=== PATIENT | male | born 2000 | race Caucasian/White ===

== ENCOUNTER 2023-03-20 12:19 | Emergency (ER) | payer OTHER, SELFPAY ==
--- NOTE | ~2023-03-20 | CT_ITS ---
EXAMINATION: CT abdomen pelvis w con DATE: 03/20/2023 13:53 INDICATION: Upper right-sided abdominal pain for one day TECHNIQUE: Computed tomography (CT) of the abdomen and pelvis was performed with 100 CC Omnipaque 350 intravenous contrast. Automated exposure control and iterative reconstruction technique were employe d. Exam dose: 1204.64 mGy-cm total exam DLP. COMPARISON: None. FINDINGS: Normal heart size. No pericardial or pleural effusion. The lung bases are clear of infiltra te or consolidation. The gallbladder is contracted. No gallbladder wall thickening or pericholecystic fluid or fat strandi ng. No bile duct or pancreatic duct dilatation. No hepatic, splenic, pancreatic or adrenal space-occupying mass lesion. No solid right renal mass lesion or right ureteral renal calculus or hydroureteronephrosis. Possible small upper pole right renal cyst. No left renal solid mass lesion is evident. Possible small upper pole small renal cysts Approximately 3.4-5.9 mm and rounded approximately 2.8 mm nonobstructing mid left renal calculi. No l eft ureteral calculus or left hydronephrosis. Normal caliber of the abdominal aorta. No intraperitoneal or retroperitoneal or pelvic mass lesion or adenopathy or ascites. The urinary bladder and prostate gland are unremarkable. No bowel obstruction, bowel wall thickening, pneumatosis or intraperitoneal free air. Normal appendix . Small fat-containing umbilical hernia. Included skeletal structures are unremarkable. IMPRESSION: Normal appendix Mild nonobstructive left nephrolithiasis Reviewed, dictated and finalized at [facility]. Reviewed, dictated and finalized at [facility].
[2023-03-20 12:23] VITALS: BP 144/79; PULSE 78; RESP 20; TEMP 36.8; O2SAT 99
--- NOTE | 2023-03-20 12:36 | ED.GENADULT ---
HPI - General Adult General Chief complaint: Abdominal Pain Stated complaint: pain in upper abs, mostly right, worse w/ standing Time Seen by Provider: 03/20/23 12:25 Source: patient Mode of arrival: ambulatory History of Present Illness HPI narrative: 22-year-old male presenting with right upper quadrant abdominal pain. Patient states his symptoms started approximately 36 hours ago. He describes his symptoms as stabbing pain in his right upper quadrant that is near constant. He denies any injury or illness. Onset (ago): day(s) Location: abdomen Quality: stabbing Treatments prior to arrival: none Related Data Allergies Allergy/AdvReac Type Severity Reaction Status Date / Time No Known Allergies Allergy Verified 03/20/23 12:52 Exam Const: General: cooperative and healthy appearing HENMT: Head: normal to inspection and normocephalic Ears: hearing grossly normal bilaterally and external ears normal Face/Nose/Sinus: Normal external nose present and Normal nares present Face and sinus: normal facial exam and face symmetric Eyes: General: appearance normal, both eyes and all related structures Alignment and Position: alignment normal Neck: Neck: normal visual inspection and full ROM Chest: Chest palpation & inspection: normal inspection of the chest and normal palpation of entire chest wall Other: Nontender chest wall Resp: Effort & Inspection: normal respiratory effort and able to speak in complete sentences Cardio: Jugular venous distension: no JVD Rhythm: regular rhythm GI: Inspection: non-distended GI Palp: Yes Soft to palpation and Yes Tenderness to palpation present (GI) ( tenderness to palpation right upper quadrant. Positive Garcia's. ) Back/Spine/Pelvis: Back: no CVA tenderness Cervical Spine: cervical ROM normal Skin: General skin exam: normal color and no rashes or lesions noted Neuro: General: patient oriented x3 Cognition (Neuro): normal cognition Psych: Appearance: grossly normal Mental Status: mental status grossly normal Course Vital Signs Vital signs: Vital Signs Temperature 36.8 C 03/20/23 12:23 Pulse Rate 78 03/20/23 12:23 Respiratory Rate 20 03/20/23 12:23 Blood Pressure 144/79 H 03/20/23 12:23 Pulse Oximetry 99 03/20/23 12:23 Oxygen Delivery Room Air 03/20/23 12:23 Temperature 36.8 C 03/20/23 12:23 Pulse Rate 80 03/20/23 14:00 Respiratory Rate 20 03/20/23 14:00 Blood Pressure 140/75 03/20/23 14:00 Pulse Oximetry 97 03/20/23 14:00 Oxygen Delivery Room Air 03/20/23 14:00 Medical Decision Making MDM Narrative Medical decision making narrative: Differential diagnosis includes but not limited to cholecystitis versus choledocholithiasis versus gastritis versus pancreatitis versus PUD. Will evaluate with labs and imaging. Will administer IV Toradol for pain control Reassuring workup. Very mild elevated liver enzymes. Unknown etiology. Otherwise no emergent laboratory derangements. imaging upon my review an official read is without acute pathological findings. I suspect this is most likely a muscle strain versus muscle spasm versus possible gastritis. Patient did get significant symptom improvement following a single dose Toradol. will provide a few doses of Toradol for at home. Patient given very strict return precautions and follow-up instructions. He feels like to proceed outpatient management. Vital Signs Vital Signs: Vital Signs Temperature 36.8 C 03/20/23 12:23 Pulse Rate 78 03/20/23 12:23 Respiratory Rate 20 03/20/23 12:23 Blood Pressure 144/79 H 03/20/23 12:23 Pulse Oximetry 99 03/20/23 12:23 Oxygen Delivery Room Air 03/20/23 12:23 Temperature 36.8 C 03/20/23 12:23 Pulse Rate 80 03/20/23 14:00 Respiratory Rate 20 03/20/23 14:00 Blood Pressure 140/75 03/20/23 14:00 Pulse Oximetry 97 03/20/23 14:00 Oxygen Delivery Room Air 03/20/23 14:00 Lab Data Lab resul
[2023-03-20] MEDS: Please add drug allergy info to patient profile. 1 EACH XX (13:02)
[2023-03-20] MEDS: KETOROLAC 30 MG/ML VIAL (*BKC) IV PUSH (13:02)
[2023-03-20 13:15] LABS: Basophils Absolute Auto 0.07 K/mm3 (0.00-0.10); Eosinophils Absolute Auto 0.19 K/mm3 (0.02-0.50); Eosinophils Percent Auto 2.8 % (1.0-6.0); Hematocrit 44.9 % (40.0-54.0); Hemoglobin 15.1 g/dL (14.0-18.0); Immature Granulocyte Absolute 0.01 K/mm3 (0.00-0.00); Immature Granulocyte Percent A 0.1 % (0.0-0.0); Lymphocytes Absolute Auto 1.84 K/mm3 (1.10-4.50); Lymphocytes Percent Auto 27.5 % (18.0-42.0); Mean Corpuscular HGB Conc 33.6 g/dL (32.0-36.0); Mean Corpuscular Hemoglobin 30.1 pg (27.0-31.0); Mean Corpuscular Volume 89.6 fL (78.0-102.0); Monocytes Absolute Auto 0.54 K/mm3 (0.10-0.90); Monocytes Percent Auto 8.1 % (2.0-11.0); Neutrophils Percent Auto 60.5 % (50.0-70.0); Platelet Count Result 204 K/mm3 (150-420); Red Blood Count 5.01 M/mm3 (4.70-6.10); Red Cell Distribution Width 12.7 % (11.6-14.4); White Blood Count 6.7 K/mm3 (4.8-10.8)
[2023-03-20 13:30] LABS: Alanine Aminotransferase 71 U/L (16-63); Albumin Level 4.2 g/dL (3.4-5.0); Alkaline Phosphatase 95 U/L (46-116); Anion Gap 10 mmol/L (8-16); Aspartate Amino Transferase 52 U/L (15-37); Bilirubin,Total 0.4 mg/dL (0.00-1.00); Blood Urea Nitrogen 10 mg/dL (7-18); Calcium 9.1 mg/dL (8.5-10.1); Carbon Dioxide 29 mmol/L (21-32); Chloride 104 mmol/L (98-108); Estimated Glomerular Filt Rate > 60; Glucose 90 mg/dL (70-99); Lipase 54 U/L (16-77); Osmolality Calculated 295 mOsm/kg (285-295); Potassium 3.5 mmol/L (3.5-5.1); Sodium 143 mmol/L (136-145); Total Protein 7.4 g/dL (6.4-8.2)
[2023-03-20 14:00] VITALS: BP 140/75; PULSE 80; RESP 20; O2SAT 97
[2023-03-20 14:37] VITALS: BP 149/70; PULSE 72; RESP 20; TEMP 36.9; O2SAT 95
== END 2023-03-20 14:35 | disposition home or self-care (01) ==
PROVIDERS: Emergency Provider Emergency Medicine
DX: R10.11 Right upper quadrant pain (principal)
CPT/HCPCS: 36415; 74177; 80053; 83690; 85025; 96374; 99284; J1885; Q9967

== ENCOUNTER 2023-04-05 16:48 | Emergency (ER) | payer OTHER, SELFPAY ==
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
[2023-04-05 16:48] VITALS: BP 157/87; PULSE 96; RESP 15; TEMP 37.3; O2SAT 100
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
--- NOTE | 2023-04-05 17:26 | PC.NURSE ---
[facility] NOTIFIED. TO AWAIT RETURN CALL FROM .
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
[2023-04-05 18:15] VITALS: BP 138/96; PULSE 80; RESP 18; O2SAT 98
--- NOTE | 2023-04-05 18:26 | PC.NURSE ---
PT WAS SITTING UP TALKING ON CELL PHONE AND TENDING TO HIS DAUGHTER UPON DC. PT VERBALIZED UNDERSTANDING OF FOLLOW UP INSTRUCTIONS WITH PD AND ENT. DISC PROVIDED.
== END 2023-04-05 18:15 | disposition home or self-care (01) ==
PROVIDERS: Emergency Provider Emergency Medicine
DX: S02.40DA Maxillary fracture, left side, initial encounter for closed fracture (principal); S06.0X0A Concussion without loss of consciousness, initial encounter; Y08.09XA Assault by strike by other specified type of sport equipment, initial encounter
CPT/HCPCS: 70450; 70486; 99284

== ENCOUNTER 2023-04-29 14:56 | Emergency (ER) | payer OTHER, SELFPAY ==
[2023-04-29] VITALS (11 sets, daily range): BP systolic 133–143; BP diastolic 78–95; PULSE 72–89; RESP 12–21; TEMP 36.8–36.9; O2SAT 95–99
--- NOTE | 2023-04-29 14:58 | ECG_ITS ---
Measurements Intervals [place] Rate: 82 P: 72 ID: 147 QRS: 73 QRSD: 89 T: 47 QT: 358 QTc: 420 Interpretive Statements SINUS RHYTHM MINIMAL Q WAVES- INF/LAT LEADS BORDERLINE ECG NO PREVIOUS ECG AVAILABLE FOR COMPARISON Electronically Signed On 04-29-2023 15:36:22 CDT by Prasanth Zuleta D.O.
--- NOTE | 2023-04-29 15:00 | PC.NURSE ---
upon patient arrival, bed rails are padded for seizure precautions.
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
[2023-04-29] MEDS: levETIRAcetam 500 MG TABLET 1000 MG PO (15:18)
[2023-04-29 15:20] LABS: Basophils Absolute Auto 0.04 K/mm3 (0.00-0.10); Basophils Percent Auto 0.5 % (0.0-1.0); Eosinophils Percent Auto 2.6 % (1.0-6.0); Hemoglobin 16.5 g/dL (14.0-18.0); Immature Granulocyte Absolute 0.02 K/mm3 (0.00-0.00); Immature Granulocyte Percent A 0.3 % (0.0-0.0); Lymphocytes Absolute Auto 2.02 K/mm3 (1.10-4.50); Lymphocytes Percent Auto 26.3 % (18.0-42.0); Mean Corpuscular Hemoglobin 29.8 pg (27.0-31.0); Mean Corpuscular Volume 90.4 fL (78.0-102.0); Mean Platelet Volume 9.2 fl (8.7-11.0); Monocytes Absolute Auto 0.56 K/mm3 (0.10-0.90); Monocytes Percent Auto 7.3 % (2.0-11.0); Neutrophils Absolute Auto 4.8 K/mm3 (1.7-7.2); Platelet Count Result 214 K/mm3 (150-420); Red Blood Count 5.53 M/mm3 (4.70-6.10); Red Cell Distribution Width 13.1 % (11.6-14.4); White Blood Count 7.7 K/mm3 (4.8-10.8)
[2023-04-29 15:39] LABS: Alanine Aminotransferase 53 U/L (16-63); Albumin Level 4.3 g/dL (3.4-5.0); Alkaline Phosphatase 96 U/L (46-116); Anion Gap 8 mmol/L (8-16); Aspartate Amino Transferase 26 U/L (15-37); Bilirubin,Total 0.9 mg/dL (0.00-1.00); Blood Urea Nitrogen 10 mg/dL (7-18); Calcium 9.5 mg/dL (8.5-10.1); Carbon Dioxide 30 mmol/L (21-32); Chloride 103 mmol/L (98-108); Creatine Kinase 454 U/L (39-308); Estimated Glomerular Filt Rate > 60; Glucose 89 mg/dL (70-99); Osmolality Calculated 290 mOsm/kg (285-295); Potassium 3.8 mmol/L (3.5-5.1); Sodium 141 mmol/L (136-145); Total Protein 7.7 g/dL (6.4-8.2)
--- NOTE | 2023-04-29 16:00 | PC.NURSE ---
patient states he still cannot urinate at this time, erp is aware
--- NOTE | 2023-04-29 16:22 | PC.NURSE ---
patient unable to urinate at this time, erp is aware.
== END 2023-04-29 16:12 | disposition home or self-care (01) ==
PROVIDERS: Emergency Provider Emergency Medicine
DX: G40.409 Other generalized epilepsy and epileptic syndromes, not intractable, without status epilepticus (principal)
CPT/HCPCS: 36415; 80053; 82550; 85025; 93005; 99283; A9270

== ENCOUNTER 2023-06-02 05:15 | Emergency (ER) | payer OTHER, SELFPAY ==
--- NOTE | ~2023-06-02 | CT_ITS ---
Non-contrast Head CT History: Seizure, headache COMPARISON: 04/05/2023 Technique: Axial non-contrast imaging of the brain was performed. Dose reduction technique was used on this scan by utilizing automated exposure control and iterative reconstruction technique. The dose -length product (DLP) was 756.67 mGy-cm. Findings: There is no evidence of intracranial hemorrhage, mass lesion, or acute infarct. Brain par enchyma appears normal. The ventricles and subarachnoid spaces are normal in size. The calvarium ap pears normal. The visualized paranasal sinuses and mastoid air cells are clear. Impression: No significant abnormality seen. Reviewed, dictated and finalized at location . Impression: No significant abnormality seen.
--- NOTE | ~2023-06-02 | CT_ITS ---
Noncontrast CT scan of the cervical spine Technique: Multiple contiguous axial [address] images of the cervical spine were obtained and rec onstructed in 2D sagittal and coronal planes on the acquisition scanner. Dose reduction technique was used on this scan by utilizing automated exposure control, adjustment of the mA and/or kV according to patient size. The dose-length product (DLP) was 756.67 mGy-cm. Clinical History: Pain Findings: No fractures or dislocations. There is minimal reversal normal cervical lordosis. Osseous structures otherwise unremarkable. Intervertebral disc spaces are preserved. No prevertebral soft tis fawad swelling. Impression: Minimal reversal of the normal cervical lordosis, otherwise unremarkable exam. Reviewed, dictated and finalized at [facility]. Impression: Minimal reversal of the normal cervical lordosis, otherwise unremarkable exam.
[2023-06-02 05:19] VITALS: BP 150/83; PULSE 91; RESP 18; TEMP 36.8; O2SAT 97
--- NOTE | 2023-06-02 05:22 | ED.SEIZURE ---
HPI - Seizure General Chief Complaint: Seizure Stated Complaint: Seizure Time Seen by Provider: 06/02/23 05:22 Source: patient Mode of arrival: ambulatory Limitations: no limitations History of Present Illness HPI Narrative: 22-year-old male with a history of seizure disorder diagnosed 3 years ago, on Keppra 500 b.i.d. presents to the ER after -- an unwitnessed seizure. Patient was noted to be thrashing around in his father went up to check on him. He noted him to be lying on the floor. The patient did not have any fecal or urinary incontinence. The patient was noted to be incoherent and confused. He had a prior seizure few days ago. The patient is noncompliant with his Keppra. -- Complains of generalized headache without any focal neuro deficit -- multiple abrasions on his toes, right knee. He has a large tongue bite on the right lateral tongue. His shoulders are sore and he has soft tissue swelling in the right side of the neck. 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's license (CDL) as part of your employment, either self-employed or otherwise?: No Related Data Allergies Allergy/AdvReac Type Severity Reaction Status Date / Time No Known Allergies Allergy Verified 06/02/23 06:07 Review of Systems Review of Systems: All systems reviewed & are unremarkable except as noted in HPI and below Constitutional: Constitutional: Reports as per HPI, Reports no additional constitutional complaints and Reports weakness Eyes: Eyes: Reports as per HPI and Reports no additional eye complaints ENT: Reports system reviewed and no additional complaints, except as documented and Reports as per HPI Comments: large tongue bite on the right lateral margin of the tongue. Soft tissue swelling below the right angle of the mandible Cardiovascular: Cardiovascular: Reports as per HPI and Reports no additional cardiovascular complaints Respiratory: Respiratory: Reports as per HPI and Reports no additional respiratory complaints Gastrointestinal: Gastrointestinal: Reports as per HPI and Reports no additional gastrointestinal complaints Genitourinary: Genitourinary: Reports no additional male genitourinary complaints Musculoskeletal: Musculoskeletal: Reports no additional musculoskeletal complaints and Reports as per HPI Comments: Bilateral shoulder pain. Bilateral knee pain abrasion of his toes and knees Integumentary/Breasts: Skin/Breast: Reports system reviewed and no additional complaints, except as docu and Reports as per HPI Neurologic: Reports system reviewed and no additional complaints, except as documented and Reports as per HPI Psychiatric: Psychiatric: Reports no additional psychiatric complaints and Reports as per HPI Endocrine: Endocrine: Reports no additional endocrine complaints and Reports as per HPI Hematologic/Lymphatic: Hematologic/Lymphatic: Reports no additional hematologic/lymphatic complaints and Reports as per HPI Allergic/Immunologic: Allergic/Immunologic: Reports no additional allergic/immunologic complaints and Reports as per HPI PMFSH Past Medical History Medical History No active medical problems Seizure Surgical History Surgical History No pertinent past surgical history Exam Const: General: no acute distress Orientation/consciousness: patient oriented x3 Limitations: no limitations HENMT: Head: normal to inspection Ears: external ears normal Face/Nose/Sinus: Normal external nose present Face and sinus: normal facial exam Mouth: Yes Abnormal oral
--- NOTE | 2023-06-02 05:30 | PC.NURSE ---
Patient father to nurses station, states he suspects patient may be using drugs other than marijuana. Patient father asking RN if we will perform a drug screen. Patient father updated that order is up to the discretion of the ER doctor and even if the provider orders the test, the father may not necessarily be able to know the results of the testing as the patient is over 18. HIPPA explained to patient father by RN.
[2023-06-02 05:44] LABS: Basophils Absolute Auto 0.04 K/mm3 (0.00-0.10); Basophils Percent Auto 0.5 % (0.0-1.0); Eosinophils Absolute Auto 0.16 K/mm3 (0.02-0.50); Eosinophils Percent Auto 1.9 % (1.0-6.0); Hematocrit 47.3 % (40.0-54.0); Hemoglobin 15.6 g/dL (14.0-18.0); Immature Granulocyte Absolute 0.03 K/mm3 (0.00-0.00); Immature Granulocyte Percent A 0.4 % (0.0-0.0); Lymphocytes Absolute Auto 1.69 K/mm3 (1.10-4.50); Lymphocytes Percent Auto 20.6 % (18.0-42.0); Mean Corpuscular Hemoglobin 30.1 pg (27.0-31.0); Mean Corpuscular Volume 91.1 fL (78.0-102.0); Mean Platelet Volume 9.2 fl (8.7-11.0); Monocytes Absolute Auto 0.59 K/mm3 (0.10-0.90); Monocytes Percent Auto 7.2 % (2.0-11.0); Neutrophils Absolute Auto 5.7 K/mm3 (1.7-7.2); Neutrophils Percent Auto 69.4 % (50.0-70.0); Platelet Count Result 216 K/mm3 (150-420); Red Blood Count 5.19 M/mm3 (4.70-6.10); Red Cell Distribution Width 12.3 % (11.6-14.4); White Blood Count 8.2 K/mm3 (4.8-10.8)
[2023-06-02] MEDS: TETANUS,DIPHTHERIA,AC PERTUSSIS ADULT 0.5 ML (ADACEL) IM (05:57)
[2023-06-02] MEDS: levETIRAcetam 1000MG/NACL100ML 1,000 MG/100 ML BAG 400 MG IVPB (05:59)
[2023-06-02] MEDS: KETOROLAC 30 MG/ML VIAL (*BKC) IM (05:59)
[2023-06-02 06:12] LABS: Alanine Aminotransferase 96 U/L (16-63); Albumin Level 3.8 g/dL (3.4-5.0); Alkaline Phosphatase 105 U/L (46-116); Anion Gap 10 mmol/L (8-16); Aspartate Amino Transferase 37 U/L (15-37); Bilirubin,Total 0.4 mg/dL (0.00-1.00); Blood Urea Nitrogen 7 mg/dL (7-18); Calcium 9.3 mg/dL (8.5-10.1); Carbon Dioxide 26 mmol/L (21-32); Chloride 102 mmol/L (98-108); Estimated CRCL calculation 148 ml/min; Estimated Glomerular Filt Rate > 60; Glucose 113 mg/dL (70-99); Lipase 68 U/L (16-77); Magnesium 2.2 mg/dL (1.8-2.4); Osmolality Calculated 285 mOsm/kg (285-295); Potassium 3.5 mmol/L (3.5-5.1); Sodium 138 mmol/L (136-145); Total Protein 7.2 g/dL (6.4-8.2)
--- NOTE | 2023-06-02 06:39 | PC.NURSE ---
after viewing patient pill bottle of Keppra, dispensed on 04/29/23, if patient was taking medication as prescribed, patient would have completed all the medication which was filled on 04/29. multiple pills remain in bottle, therefore we can assume patient is not taking his Keppra medication correctly.
[2023-06-02 06:46] VITALS: BP 126/74; PULSE 80; RESP 16; TEMP 36.5; O2SAT 98
== END 2023-06-02 07:09 | disposition home or self-care (01) ==
PROVIDERS: Emergency Provider Internal Medicine Critical Care Medicine; PCP Internal Medicine
DX: G40.909 Epilepsy, unspecified, not intractable, without status epilepticus (principal); Z79.899 Other long term (current) drug therapy; Z23 Encounter for immunization; S80.212A Abrasion, left knee, initial encounter; S80.211A Abrasion, right knee, initial encounter; S90.812A Abrasion, left foot, initial encounter; S90.811A Abrasion, right foot, initial encounter; X58.XXXA Exposure to other specified factors, initial encounter
CPT/HCPCS: 36415; 70450; 72125; 80053; 83605; 83690; 83735; 85025; 90471; 90715; 96365; 96372; 99284; J1885; J1953

== ENCOUNTER 2023-07-16 21:58 | Emergency (ER) | payer OTHER, SELFPAY ==
--- NOTE | ~2023-07-16 | CT_ITS ---
EXAMINATION: CT brain wo con INDICATION: Seizure, headache COMPARISON: 06/02/2023 TECHNIQUE: Standard unenhanced head CT. The dose-length product (DLP) was 605.33 mGy-cm. The mA was a djusted according to patient size. Iterative reconstruction technique was employed. FINDINGS: No intracranial hemorrhage, acute infarction, or abnormal mass lesion. The ventricles are n ormal. No abnormal mass effect or midline shift. The [place]-white matter differentiation is normal. The basal cisterns are patent. The orbits are normal. The paranasal sinuses, mastoids and calvarium are normal. IMPRESSION: 1. No acute intracranial abnormality. Reviewed, dictated and finalized at location F. OL BOAT DRIVER
--- NOTE | ~2023-07-16 | CT_ITS ---
EXAMINATION: CT cervical spine wo con DATE: 07/16/2023 22:41 INDICATION: Neck pain TECHNIQUE: Computed tomography (CT) of the cervical spine was performed without intravenous contrast. The dose-length product (DLP) was 477.06 mGy-cm. Automated exposure control and iterative reconstruc tion technique were employed. COMPARISON: 06/02/2023 FINDINGS: No fracture, dislocation, or subluxation. The vertebral body heights, alignment, and interv ertebral disc spaces are normal. The paravertebral soft tissues are unremarkable. The odontoid proces s is intact. IMPRESSION: 1. No acute osseous abnormality. Reviewed, dictated and finalized at location F. OPERATOR
[2023-07-16 22:03] VITALS: BP 157/93; PULSE 94; RESP 18; TEMP 36.7; O2SAT 96
--- NOTE | 2023-07-16 22:18 | ED.SEIZURE ---
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 His sister was the witness of the episode, which was described as his body tensing up. No incontinence or tongue biting. There was a post-tictal period immediately afterwards during which he was not aware of where he was. Patient now complains of headache, neck pain, and a goose egg bump in the back of his head, and not very energetic . Denied recent illness but admitted that he's had a lot of stress lately. Said he is compliant with his Keppra at home. 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's license (CDL) as part of your employment, either self-employed or otherwise?: No Related Data Allergies Allergy/AdvReac Type Severity Reaction Status Date / Time No Known Allergies Allergy Verified 07/16/23 22:01 Review of Systems Constitutional: Constitutional: Reports as per HPI and Reports no additional constitutional complaints Eyes: Eyes: Reports as per HPI and Reports no additional eye complaints ENT: Reports system reviewed and no additional complaints, except as documented and Reports as per HPI Cardiovascular: Cardiovascular: Reports as per HPI and Reports no additional cardiovascular complaints Respiratory: Respiratory: Reports as per HPI and Reports no additional respiratory complaints Gastrointestinal: Gastrointestinal: Reports as per HPI and Reports no additional gastrointestinal complaints Genitourinary: Genitourinary: Reports as per HPI Musculoskeletal: Musculoskeletal: Reports no additional musculoskeletal complaints and Reports as per HPI Integumentary/Breasts: Skin/Breast: Reports system reviewed and no additional complaints, except as docu and Reports as per HPI Neurologic: Reports system reviewed and no additional complaints, except as documented and Reports as per HPI Psychiatric: Psychiatric: Reports no additional psychiatric complaints and Reports as per HPI Endocrine: Endocrine: Reports no additional endocrine complaints and Reports as per HPI Hematologic/Lymphatic: Hematologic/Lymphatic: Reports no additional hematologic/lymphatic complaints and Reports as per HPI Allergic/Immunologic: Allergic/Immunologic: Reports no additional allergic/immunologic complaints and Reports as per HPI PMFSH Past Medical History Medical History No active medical problems Seizure Surgical History Surgical History No pertinent past surgical history Exam Const: General: cooperative, healthy appearing, comfortable, no acute distress, well developed, alert, awake, average body habitus and well nourished Nutritional Appearance: average body habitus and well nourished Orientation/consciousness: oriented to person, oriented to place and oriented to time Limitations: no limitations HENMT: Head: normal to inspection Ears: hearing grossly normal bilaterally, external ears normal and TM's normal bilaterally Face/Nose/Sinus: Normal external nose present, Normal nares present, No nasal polyps present, Normal nasal mucous membranes and turbinates present, Normal septum present, No nasal discharge present, normal facial exam, sinuses nontender and face symmetric Face and sinus: normal facial exam, sinuses nontender and face symmetric Mouth: Yes Normal oral and palatal muco
[2023-07-16 22:29] LABS: Hematocrit 45.9 % (40.0-54.0); Hemoglobin 15.3 g/dL (14.0-18.0); Mean Corpuscular HGB Conc 33.3 g/dL (32.0-36.0); Mean Corpuscular Hemoglobin 29.8 pg (27.0-31.0); Mean Corpuscular Volume 89.5 fL (78.0-102.0); Mean Platelet Volume 9.1 fl (8.7-11.0); Platelet Count Result 200 K/mm3 (150-420); Red Blood Count 5.13 M/mm3 (4.70-6.10); Red Cell Distribution Width 12.5 % (11.6-14.4); White Blood Count 8.8 K/mm3 (4.8-10.8)
[2023-07-16 22:43] LABS: Alanine Aminotransferase 72 U/L (16-63); Albumin Level 3.9 g/dL (3.4-5.0); Alkaline Phosphatase 101 U/L (46-116); Anion Gap 8 mmol/L (8-16); Aspartate Amino Transferase 32 U/L (15-37); Bilirubin,Total 0.4 mg/dL (0.00-1.00); Blood Urea Nitrogen 8 mg/dL (7-18); Calcium 8.8 mg/dL (8.5-10.1); Carbon Dioxide 31 mmol/L (21-32); Chloride 102 mmol/L (98-108); Estimated CRCL calculation 131 ml/min; Estimated Glomerular Filt Rate > 60; Glucose 92 mg/dL (70-99); Osmolality Calculated 290 mOsm/kg (285-295); Potassium 3.6 mmol/L (3.5-5.1); Sodium 141 mmol/L (136-145)
[2023-07-16 23:10] VITALS: BP 125/105; PULSE 85; RESP 18; O2SAT 96
[2023-07-17 00:03] VITALS: BP 142/73; PULSE 76; RESP 18; O2SAT 98
[2023-07-19 15:51] LABS: Levetiracetam Keppra 6.8 mcg/mL (6.0-46.0)
== END 2023-07-17 00:20 | disposition home or self-care (01) ==
PROVIDERS: Emergency Provider Emergency Medicine; PCP Internal Medicine
DX: R56.9 Unspecified convulsions (principal); Z79.899 Other long term (current) drug therapy
CPT/HCPCS: 36415; 70450; 72125; 80053; 80177; 85027; 99284

== ENCOUNTER 2023-07-28 05:13 | Emergency (ER) | payer OTHER, SELFPAY ==
--- NOTE | ~2023-07-28 | CT_ITS ---
Non-contrast Head CT History: Seizure, headache COMPARISON: 07/16/2023 Technique: Axial non-contrast imaging of the brain was performed. Dose reduction technique was used on this scan by utilizing automated exposure control and iterative reconstruction technique. The dose -length product (DLP) was 681.00 mGy-cm. Findings: There is no evidence of intracranial hemorrhage, mass lesion, or acute infarct. Brain par enchyma appears normal. The ventricles and subarachnoid spaces are normal in size. The calvarium ap pears normal. The visualized paranasal sinuses and mastoid air cells are clear. Impression: No significant abnormality seen. Reviewed, dictated and finalized at location . CLIMBER Impression: No significant abnormality seen.
[2023-07-28 05:15] VITALS: BP 131/76; PULSE 86; RESP 18; TEMP 36.9; O2SAT 95
--- NOTE | 2023-07-28 05:18 | ED.SEIZURE ---
HPI - Seizure General Chief Complaint: Seizure Stated Complaint: seizure while sleeping, bit tongue Source: patient Mode of arrival: ambulatory Limitations: no limitations History of Present Illness HPI Narrative: 22-year-old male with a history of seizure disorder 1st diagnosed 3 years ago presents to the ER after -- unwitnessed seizure in his sleep. The patient was dropped off at the ER by his friend. After the seizure the patient called his friend who brought him to the ER. -- Complains of pain in the right lateral tongue without any obvious bruising/laceration. -- Postictal headache. No focal neuro deficits noted. -- Bilateral shoulder pain. No urinary incontinence. The patient has been having recurrent seizures and is here every month. He was initially on Keppra 500 b.i.d. and the dose has been increased to 750 b.i.d. The patient is compliant with his medications. 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 (CDL) as part of your employment, either self-employed or otherwise?: No Related Data Allergies Allergy/AdvReac Type Severity Reaction Status Date / Time No Known Allergies Allergy Verified 07/28/23 05:55 Review of Systems Review of Systems: All systems reviewed & are unremarkable except as noted in HPI and below Constitutional: Constitutional: Reports as per HPI and Reports no additional constitutional complaints Eyes: Eyes: Reports as per HPI and Reports no additional eye complaints ENT: Reports system reviewed and no additional complaints, except as documented and Reports as per HPI Comments: complains of soreness of the right lateral tongue. Cardiovascular: Cardiovascular: Reports as per HPI and Reports no additional cardiovascular complaints Respiratory: Respiratory: Reports as per HPI and Reports no additional respiratory complaints Gastrointestinal: Gastrointestinal: Reports as per HPI and Reports no additional gastrointestinal complaints Genitourinary: Genitourinary: Reports no additional male genitourinary complaints and Reports as per HPI Musculoskeletal: Musculoskeletal: Reports no additional musculoskeletal complaints, Reports as per HPI and Reports arthralgias Integumentary/Breasts: Skin/Breast: Reports system reviewed and no additional complaints, except as docu and Reports as per HPI Neurologic: Reports system reviewed and no additional complaints, except as documented and Reports as per HPI Psychiatric: Psychiatric: Reports no additional psychiatric complaints and Reports as per HPI Endocrine: Endocrine: Reports no additional endocrine complaints and Reports as per HPI Hematologic/Lymphatic: Hematologic/Lymphatic: Reports no additional hematologic/lymphatic complaints and Reports as per HPI Allergic/Immunologic: Allergic/Immunologic: Reports no additional allergic/immunologic complaints and Reports as per HPI [facility] Past Medical History Medical History No active medical problems Seizure Surgical History Surgical History No pertinent past surgical history Exam Const: General: no acute distress and ill appearing Nutritional Appearance: obese Orientation/consciousness: confusion HENMT: Head: normal to inspection Ears: external ears normal Face/Nose/Sinus: Normal external nose present Face and sinus: normal facial exam Mouth: Yes Normal oral and palatal mucosa present Throat: posterior oropharynx normal Eyes: Conjunctivae: conjunctivae normal Pupils: Equal, round and reactive pupils present EOM: EOMs intact bilaterally Direct Ophthalmoscopy: no photophobia Neck: Neck
[2023-07-28 05:54] LABS: Basophils Absolute Auto 0.08 K/mm3 (0.00-0.10); Eosinophils Absolute Auto 0.19 K/mm3 (0.02-0.50); Eosinophils Percent Auto 2.5 % (1.0-6.0); Hematocrit 45.8 % (40.0-54.0); Immature Granulocyte Absolute 0.04 K/mm3 (0.00-0.00); Immature Granulocyte Percent A 0.5 % (0.0-0.0); Lymphocytes Absolute Auto 1.87 K/mm3 (1.10-4.50); Lymphocytes Percent Auto 24.2 % (18.0-42.0); Mean Corpuscular HGB Conc 32.8 g/dL (32.0-36.0); Mean Corpuscular Hemoglobin 29.4 pg (27.0-31.0); Mean Corpuscular Volume 89.8 fL (78.0-102.0); Monocytes Absolute Auto 0.59 K/mm3 (0.10-0.90); Monocytes Percent Auto 7.6 % (2.0-11.0); Neutrophils Percent Auto 64.2 % (50.0-70.0); Platelet Count Result 198 K/mm3 (150-420); Red Cell Distribution Width 12.7 % (11.6-14.4); White Blood Count 7.7 K/mm3 (4.8-10.8)
[2023-07-28] MEDS: levETIRAcetam 1000MG/NACL100ML 1,000 MG/100 ML BAG 400 MG IVPB (06:07)
[2023-07-28 06:11] LABS: Alanine Aminotransferase 58 U/L (16-63); Albumin Level 3.6 g/dL (3.4-5.0); Alkaline Phosphatase 90 U/L (46-116); Anion Gap 3 mmol/L (8-16); Aspartate Amino Transferase 26 U/L (15-37); Bilirubin,Total 0.4 mg/dL (0.00-1.00); Blood Urea Nitrogen 9 mg/dL (7-18); Calcium 8.8 mg/dL (8.5-10.1); Carbon Dioxide 31 mmol/L (21-32); Chloride 103 mmol/L (98-108); Creatine Kinase 250 U/L (39-308); Estimated CRCL calculation 127 ml/min; Estimated Glomerular Filt Rate > 60; Glucose 116 mg/dL (70-99); Osmolality Calculated 283 mOsm/kg (285-295); Potassium 3.6 mmol/L (3.5-5.1); Sodium 137 mmol/L (136-145); Total Protein 6.6 g/dL (6.4-8.2)
[2023-07-28 06:16] LABS: Lactic Acid Reflex 1.1 mmol/L (0.4-2.0)
[2023-07-28 06:55] VITALS: BP 120/64; PULSE 77; RESP 18; TEMP 36.6; O2SAT 95
[2023-07-31 00:40] LABS: Levetiracetam Keppra <2.0 mcg/mL (6.0-46.0)
== END 2023-07-28 07:10 | disposition home or self-care (01) ==
PROVIDERS: Emergency Provider Internal Medicine Critical Care Medicine; PCP Internal Medicine
DX: G40.909 Epilepsy, unspecified, not intractable, without status epilepticus (principal)
CPT/HCPCS: 36415; 70450; 80053; 80177; 82550; 83605; 83735; 85025; 96365; 99284; J1953

== ENCOUNTER 2023-08-26 18:22 | Emergency (ER) | payer OTHER, SELFPAY ==
--- NOTE | ~2023-08-26 | XR_ITS ---
EXAMINATION: XR ankle RT min 3V DATE: 08/26/2023 18:40 INDICATION: Right ankle injury. TECHNIQUE: 3 views of right ankle were obtained. COMPARISON: None. FINDINGS: Bone alignment is normal. There is a fragment of heterotopic ossification anteromedial to t he distal fibula. IMPRESSION: 1. Fragment of heterotopic ossification anteromedial to the distal fibula, which may be an acute avul marcus fracture or a chronic finding. Reviewed, dictated and finalized at location E. ONHOLE MAKER IMPRESSION: 1. Fragment of heterotopic ossification anteromedial to the distal fibula, whic h may be an acute avulsion fracture or a chronic finding.
--- NOTE | ~2023-08-26 | XR_ITS ---
EXAMINATION: XR heel RT min 2V DATE: 08/26/2023 18:52 INDICATION: Right heel pain. TECHNIQUE: 2 views of right calcaneus were obtained. COMPARISON: None. FINDINGS: Bone alignment is normal. No fracture. Joint spaces are normal. IMPRESSION: 1. Normal right calcaneus. Reviewed, dictated and finalized at location E. EE SAMPLER IMPRESSION: 1. Normal right calcaneus.
[2023-08-26 18:25] VITALS: BP 158/79; PULSE 90; RESP 19; TEMP 37.1; O2SAT 97
--- NOTE | 2023-08-26 18:37 | ED.LOWEXIN ---
HPI - Extremity Injury (Lower) General Chief Complaint: Extremity Injury, Lower Stated Complaint: Rt ankle injury Time Seen by Provider: 08/26/23 18:34 Source: patient Mode of arrival: ambulatory Limitations: no limitations History of Present Illness HPI Narrative: patient is a 22-year-old male with a right heel and ankle pain after jumping over a fence and landing on his feet after rolling. 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) Injury: Right: ankle (and heel) Type of Injury: other ( Direct blow to the right foot and ankle) Place: home and street/outdoors Severity: moderate Severity scale (1-10): 5 Relieving factors: nothing Exacerbating factors: nothing Context: fall and direct blow Associated symptoms: swelling, tingling and able to partially bear weight Other symptoms: none Related Data Home Medications Medication Instructions Recorded Confirmed fluoxetine 10 mg capsule 10 mg PO DAILY 08/26/23 08/26/23 Allergies Allergy/AdvReac Type Severity Reaction Status Date / Time No Known Allergies Allergy Verified 08/26/23 18:24 Review of Systems Review of Systems: All systems reviewed & are unremarkable except as noted in HPI and below Constitutional: Constitutional: Reports no additional constitutional complaints Eyes: Eyes: Reports no additional eye complaints ENT: Reports system reviewed and no additional complaints, except as documented Cardiovascular: Cardiovascular: Reports no additional cardiovascular complaints Respiratory: Respiratory: Reports no additional respiratory complaints Gastrointestinal: Gastrointestinal: Reports no additional gastrointestinal complaints Genitourinary: Genitourinary: Reports no additional male genitourinary complaints Musculoskeletal: Musculoskeletal: Reports no additional musculoskeletal complaints Integumentary/Breasts: Skin/Breast: Reports system reviewed and no additional complaints, except as docu Neurologic: Reports system reviewed and no additional complaints, except as documented Psychiatric: Psychiatric: Reports no additional psychiatric complaints Endocrine: Endocrine: Reports no additional endocrine complaints Hematologic/Lymphatic: Hematologic/Lymphatic: Reports no additional hematologic/lymphatic complaints Allergic/Immunologic: Allergic/Immunologic: Reports no additional allergic/immunologic complaints PMFSH Past Medical History Medical History No active medical problems Seizure Surgical History Surgical History No pertinent past surgical history Exam Const: General: healthy appearing Nutritional Appearance: well nourished Orientation/consciousness: patient oriented x3 HENMT: Head: normal to inspection Ears: external ears normal Face/Nose/Sinus: Normal external nose present Eyes: Conjunctivae: conjunctivae normal Pupils: Equal, round and reactive pupils present EOM: EOMs intact bilaterally Neck: Neck: normal visual inspection Chest: Chest palpation & inspection: normal inspection of the chest Resp: Effort & Inspection: normal respiratory effort and not labored Auscultation: clear to auscultation bilaterally and no crackles Cardio: Rate: regular rate Rhythm: regular rhythm Heart sounds: no murmurs GI: Inspection: non-distended GI Palp: Yes Soft to palpation, No Tenderness to palpation present (GI) and No Guarding due to palpation present (GI) Auscultation: normal bowel sounds : General: Yes bladder normal to palpation Back/Spine/Pelvis: Back: no CVA tenderness Skin: General skin exam: normal color Rashes: no rashes Wounds: no wounds Neuro: General: patient oriented x3 Cranial nerves: Yes Nystagmus not present Speech: normal speech Extrem: General: normal to inspection Other: tender right ankle and heel Psych: Mental Status: mental status grossly normal Affect
[2023-08-26] MEDS: KETOROLAC (*BKC) 60 MG/2 ML VIAL IM (18:58)
== END 2023-08-26 19:32 | disposition home or self-care (01) ==
PROVIDERS: Emergency Provider Emergency Medicine
DX: S82.831A Other fracture of upper and lower end of right fibula, initial encounter for closed fracture (principal); Z79.899 Other long term (current) drug therapy; W19.XXXA Unspecified fall, initial encounter
CPT/HCPCS: 73610; 73650; 96372; 99284; J1885; L4350

== ENCOUNTER 2023-09-12 13:37 | Emergency (ER) | payer OTHER, SELFPAY ==
--- NOTE | ~2023-09-12 | XR_ITS ---
XR foot RT min 3V, XR ankle RT min 3V, XR heel RT min 2V 09/12/2023 14:10 INDICATION: Right heel, foot and ankle pain after fall PROCEDURE: 4 views right foot, 2 views right heel/os calcis and 4 views right ankle COMPARISON: No prior studies for comparison. FINDINGS: Fracture, dislocation or subluxation is not identified. There is mild soft tissue swelling lateral to the fifth metatarsal. No foreign bodies are identified. IMPRESSION: 1: NO ACUTE BONE OR JOINT ABNORMALITY IDENTIFIED. Reviewed, dictated and finalized at location B. ITY LIAISON IMPRESSION: 1: NO ACUTE BONE OR JOINT ABNORMALITY IDENTIFIED. IMPRESSION: 1: NO ACUTE BONE OR JOINT ABNORMALITY IDENTIFIED.
[2023-09-12 13:37] VITALS: BP 165/96; PULSE 84; RESP 16; TEMP 36.9; O2SAT 99
--- NOTE | 2023-09-12 13:48 | ED.LOWEXIN ---
HPI - Extremity Injury (Lower) General Chief Complaint: Extremity Injury, Lower Stated Complaint: right foot/heel pain Time Seen by Provider: 09/12/23 13:43 Source: patient Mode of arrival: ambulatory Limitations: no limitations History of Present Illness HPI Narrative: 22 year old male presents to the Emergency Department complaining of right foot and heel pain. Patient states he was told he has an ankle fracture [seen here 08/26/23]. He jumped over fence causing injury. He was placed in splint, however he states he was feeling better and so he has taken splint off and is walking on foot and ankle. Patient states he slipped on ice today and has pain to heel and foot. Denies any other injury. MD complaint: ankle injury and foot injury Onset (ago): minute(s) Place: home Severity: moderate Relieving factors: nothing Exacerbating factors: nothing Context: fall Other symptoms: none Related Data Home Medications Medication Instructions Recorded Confirmed fluoxetine 10 mg capsule 10 mg PO DAILY 08/26/23 09/12/23 aripiprazole 5 mg tablet 5 mg PO DAILY 09/12/23 09/12/23 Allergies Allergy/AdvReac Type Severity Reaction Status Date / Time No Known Allergies Allergy Verified 09/12/23 13:51 Review of Systems Review of Systems: All systems reviewed & are unremarkable except as noted in HPI and below Constitutional: Constitutional: Reports as per HPI Eyes: Eyes: Reports as per HPI ENT: Reports system reviewed and no additional complaints, except as documented Cardiovascular: Cardiovascular: Reports as per HPI Respiratory: Respiratory: Reports as per HPI Gastrointestinal: Gastrointestinal: Reports as per HPI Genitourinary: Genitourinary: Reports no additional male genitourinary complaints Musculoskeletal: Musculoskeletal: Reports no additional musculoskeletal complaints and Reports arthralgias Comments: right foot/ankle/heel Integumentary/Breasts: Skin/Breast: Reports system reviewed and no additional complaints, except as docu Neurologic: Reports system reviewed and no additional complaints, except as documented PMFSH Past Medical History Medical History No active medical problems Seizure Surgical History Surgical History No pertinent past surgical history Exam Const: General: healthy appearing Nutritional Appearance: well nourished Orientation/consciousness: patient oriented x3 Limitations: no limitations HENMT: Head: normal to inspection Ears: external ears normal Face/Nose/Sinus: Normal external nose present Face and sinus: normal facial exam Mouth: Yes Normal oral and palatal mucosa present Teeth and gingiva: dentition normal Eyes: Conjunctivae: conjunctivae normal Pupils: Equal, round and reactive pupils present EOM: EOMs intact bilaterally Direct Ophthalmoscopy: no photophobia Neck: Neck: normal visual inspection Chest: Chest palpation & inspection: normal inspection of the chest Resp: Effort & Inspection: normal respiratory effort Cardio: Rate: regular rate GI: Inspection: non-distended GI Palp: No Tenderness to palpation present (GI) Skin: General skin exam: normal color Rashes: no rashes Wounds: no wounds Neuro: General: patient oriented x3, moves all extremities, no meningeal signs, no focal motor deficits and CN's II-XI intact bilaterally Cranial nerves: Yes Nystagmus not present Speech: normal speech Gait exam (Neuro): Normal gait present (antalgic) Other: grossly normal Extrem: Other: tender to palpation heel primarily Psych: Mental Status: mental status grossly normal Affect: normal affect Attitude: cooperative Course Course Emergency Course: 22 y/o male presents to the ED c/o right foot, heel, ankle pain. Patient states he had ankle fx dx 08/26/23. Was feeling better, so took splint off and walking on. Slipped on ice deborah cartwright
[2023-09-12 14:50] VITALS: BP 158/80; PULSE 80; RESP 18; O2SAT 98
--- NOTE | 2023-09-12 14:54 | PC.NURSE ---
+PMS POST ALVINA APPLICATION
== END 2023-09-12 14:50 | disposition home or self-care (01) ==
PROVIDERS: Emergency Provider Emergency Medicine
DX: S93.401A Sprain of unspecified ligament of right ankle, initial encounter (principal); Z79.899 Other long term (current) drug therapy; W00.0XXA Fall on same level due to ice and snow, initial encounter
CPT/HCPCS: 73610; 73630; 73650; 99283

== ENCOUNTER 2023-09-27 09:56 | Emergency (ER) | payer OTHER, SELFPAY ==
--- NOTE | ~2023-09-27 | XR_ITS ---
EXAMINATION: XR shoulder RT min 2V DATE: 09/27/2023 10:57 INDICATION: Right shoulder pain. TECHNIQUE: 4 views of right shoulder were obtained. COMPARISON: None. FINDINGS: Bone alignment is normal. No fracture. Joint spaces are normal. IMPRESSION: 1. Normal right shoulder. Reviewed, dictated and finalized at location A. ON SEED CULLER IMPRESSION: 1. Normal right shoulder.
[2023-09-27 09:57] VITALS: BP 159/94; PULSE 96; RESP 20; TEMP 36.2; O2SAT 95
--- NOTE | 2023-09-27 09:59 | ED.SEIZURE ---
HPI - Seizure General Chief Complaint: Seizure Stated Complaint: Seizure Time Seen by Provider: 09/27/23 09:59 Source: patient and family Mode of arrival: ambulatory Limitations: no limitations History of Present Illness HPI Narrative: Patient is a 22-year-old male with seizure disorder. He has known seizures. Had a seizure this morning that lasted a few minutes. Since I saw him last, I increased his Keppra from 500-750 twice a day with good results. He is still having an occasional breakthrough seizure. He has not seen his primary doctor yet. He has some right shoulder pain since the seizure. He hurt the right shoulder during the seizure. He has a headache post seizure. No head injury or neck injury. 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) as part of your employment, either self-employed or otherwise?: No Related Data Allergies Allergy/AdvReac Type Severity Reaction Status Date / Time No Known Allergies Allergy Verified 09/27/23 10:01 Review of Systems Review of Systems: All systems reviewed & are unremarkable except as noted in HPI and below Constitutional: Constitutional: Reports no additional constitutional complaints Eyes: Eyes: Reports no additional eye complaints ENT: Reports system reviewed and no additional complaints, except as documented Cardiovascular: Cardiovascular: Reports no additional cardiovascular complaints Respiratory: Respiratory: Reports no additional respiratory complaints Gastrointestinal: Gastrointestinal: Reports no additional gastrointestinal complaints Genitourinary: Genitourinary: Reports no additional male genitourinary complaints Musculoskeletal: Musculoskeletal: Reports no additional musculoskeletal complaints Integumentary/Breasts: Skin/Breast: Reports system reviewed and no additional complaints, except as docu Neurologic: Reports system reviewed and no additional complaints, except as documented Psychiatric: Psychiatric: Reports no additional psychiatric complaints Endocrine: Endocrine: Reports no additional endocrine complaints Hematologic/Lymphatic: Hematologic/Lymphatic: Reports no additional hematologic/lymphatic complaints Allergic/Immunologic: Allergic/Immunologic: Reports no additional allergic/immunologic complaints PMFSH Past Medical History Medical History No active medical problems Seizure Surgical History Surgical History No pertinent past surgical history Exam Const: General: healthy appearing Nutritional Appearance: well nourished Orientation/consciousness: patient oriented x3 HENMT: Head: normal to inspection Ears: external ears normal Face/Nose/Sinus: Normal external nose present Eyes: Conjunctivae: conjunctivae normal Pupils: Equal, round and reactive pupils present EOM: EOMs intact bilaterally Neck: Neck: normal visual inspection Chest: Chest palpation & inspection: normal inspection of the chest Resp: Effort & Inspection: normal respiratory effort and not labored Auscultation: clear to auscultation bilaterally and no crackles Cardio: Rate: regular rate Rhythm: regular rhythm Heart sounds: no murmurs GI: Inspection: non-distended GI Palp: Yes Soft to palpation and No Tenderness to palpation present (GI) Auscultation: normal bowel sounds : General: Yes bladder normal to palpation Back/Spine/Pelvis: Back: no CVA tenderness Skin: General skin exam: normal color Rashes: no
[2023-09-27 10:54] VITALS: BP 140/62; PULSE 84; RESP 16; O2SAT 97
[2023-09-27] MEDS: ACETAMINOPHEN 500 MG TABLET 1000 MG PO (11:07)
[2023-09-27] MEDS: levETIRAcetam 500 MG TABLET PO (11:08)
== END 2023-09-27 11:12 | disposition home or self-care (01) ==
LOC: CHSED 11:01
PROVIDERS: Emergency Provider Emergency Medicine
DX: G40.409 Other generalized epilepsy and epileptic syndromes, not intractable, without status epilepticus (principal); M25.511 Pain in right shoulder; Z79.899 Other long term (current) drug therapy
CPT/HCPCS: 73030; 99283; A9270

== ENCOUNTER 2023-10-20 01:57 | Emergency (ER) | payer OTHER, SELFPAY ==
--- NOTE | ~2023-10-20 | CT_ITS ---
Non-contrast Head CT History: Seizure COMPARISON: 07/28/2023 Technique: Axial non-contrast imaging of the brain was performed. Dose reduction technique was used on this scan by utilizing automated exposure control and iterative reconstruction technique. The dose -length product (DLP) was 681.00 mGy-cm. Findings: There is no evidence of intracranial hemorrhage, mass lesion, or acute infarct. Brain par enchyma appears normal. The ventricles and subarachnoid spaces are normal in size. The calvarium ap pears normal. The visualized paranasal sinuses and mastoid air cells are clear. Impression: No significant abnormality seen. Reviewed, dictated and finalized at [facility]. [employer]ORTATION OFFICER Impression: No significant abnormality seen.
--- NOTE | 2023-10-20 01:58 | ED.SEIZURE ---
HPI - Seizure General Chief Complaint: Seizure Stated Complaint: seizure Time Seen by Provider: 10/20/23 01:58 Source: patient Mode of arrival: ambulatory Limitations: no limitations History of Present Illness HPI Narrative: 23-year-old male with a history of seizure, 1st diagnosed around 3-1/2 years ago and currently on Keppra, Tegretol was brought in by his girlfriend who witnessed the Seizure. The patient is currently on aripiprazole. -- generalized seizure activity which lasted around 2 minutes. The patient is currently on Keppra 750 b.i.d. and Tegretol 200 mg p.o. b.i.d. The patient states that he is compliant with his medications. -- Postictal confusion and headache without any focal neuro deficits -- Postictal vomiting x1. -- postictal right shoulder pain with normal range of motion. -- soreness of the right lateral tongue without an obvious bite richa no fecal or urinary incontinence. his last Keppra level done on 07/28/2023 revealed a level of less than 2 suggestive of noncompliance. 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, either self-employed or otherwise?: No Related Data Home Medications Medication Instructions Recorded Confirmed aripiprazole 5 mg tablet 5 mg PO DAILY 10/20/23 10/20/23 fluoxetine 10 mg capsule 10 mg PO DAILY 10/20/23 10/20/23 Allergies Allergy/AdvReac Type Severity Reaction Status Date / Time No Known Allergies Allergy Verified 09/27/23 10:01 Review of Systems Review of Systems: All systems reviewed & are unremarkable except as noted in HPI and below Constitutional: Constitutional: Reports as per HPI, Reports no additional constitutional complaints and Reports weakness Eyes: Eyes: Reports as per HPI and Reports no additional eye complaints ENT: Reports system reviewed and no additional complaints, except as documented and Reports as per HPI Comments: Soreness of his tongue on the right lateral edge Cardiovascular: Cardiovascular: Reports as per HPI and Reports no additional cardiovascular complaints Respiratory: Respiratory: Reports as per HPI and Reports no additional respiratory complaints Gastrointestinal: Gastrointestinal: Reports as per HPI, Reports no additional gastrointestinal complaints, Reports nausea and Reports vomiting Genitourinary: Genitourinary: Reports no additional male genitourinary complaints Comments: no fecal or urinary incontinence Musculoskeletal: Musculoskeletal: Reports no additional musculoskeletal complaints Comments: right shoulder pain Integumentary/Breasts: Skin/Breast: Reports system reviewed and no additional complaints, except as docu and Reports as per HPI Neurologic: Reports system reviewed and no additional complaints, except as documented and Reports as per HPI Psychiatric: Psychiatric: Reports no additional psychiatric complaints and Reports as per HPI Endocrine: Endocrine: Reports no additional endocrine complaints and Reports as per HPI Hematologic/Lymphatic: Hematologic/Lymphatic: Reports no additional hematologic/lymphatic complaints and Reports as per HPI Allergic/Immunologic: Allergic/Immunologic: Reports no additional allergic/immunologic complaints and Reports as per HPI PMFSH Past Medical History Medical History No active medical problems Seizure Surgical History Surgical History No pertinent past surgical history Exam Const: General: no acute distress Nutritional Appearance:
[2023-10-20 01:59] VITALS: BP 131/69; PULSE 104; RESP 20; TEMP 36.7; O2SAT 93
[2023-10-20 02:34] LABS: Basophils Absolute Auto 0.09 K/mm3 (0.00-0.10); Basophils Percent Auto 0.9 % (0.0-1.0); Eosinophils Absolute Auto 0.19 K/mm3 (0.02-0.50); Eosinophils Percent Auto 1.8 % (1.0-6.0); Hematocrit 48.5 % (40.0-54.0); Hemoglobin 16.2 g/dL (14.0-18.0); Immature Granulocyte Absolute 0.07 K/mm3 (0.00-0.00); Immature Granulocyte Percent A 0.7 % (0.0-0.0); Lymphocytes Percent Auto 19.1 % (18.0-42.0); Mean Corpuscular HGB Conc 33.4 g/dL (32.0-36.0); Mean Corpuscular Hemoglobin 29.5 pg (27.0-31.0); Mean Corpuscular Volume 88.3 fL (78.0-102.0); Mean Platelet Volume 8.7 fl (8.7-11.0); Monocytes Absolute Auto 0.57 K/mm3 (0.10-0.90); Monocytes Percent Auto 5.5 % (2.0-11.0); Neutrophils Absolute Auto 7.5 K/mm3 (1.7-7.2); Platelet Count Result 217 K/mm3 (150-420); Red Blood Count 5.49 M/mm3 (4.70-6.10); Red Cell Distribution Width 13.2 % (11.6-14.4); White Blood Count 10.5 K/mm3 (4.8-10.8)
[2023-10-20] MEDS: ACETAMINOPHEN 500 MG TABLET 1000 MG PO (02:44)
[2023-10-20 02:50] LABS: Alanine Aminotransferase 128 U/L (16-63); Alkaline Phosphatase 109 U/L (46-116); Anion Gap 8 mmol/L (8-16); Aspartate Amino Transferase 49 U/L (15-37); Bilirubin,Total 0.4 mg/dL (0.00-1.00); Blood Urea Nitrogen 8 mg/dL (7-18); Carbon Dioxide 29 mmol/L (21-32); Chloride 101 mmol/L (98-108); Creatine Kinase 576 U/L (39-308); Estimated CRCL calculation 142 ml/min; Estimated Glomerular Filt Rate > 60; Glucose 101 mg/dL (70-99); Magnesium 2.3 mg/dL (1.8-2.4); Osmolality Calculated 284 mOsm/kg (285-295); Sodium 138 mmol/L (136-145); Total Protein 7.5 g/dL (6.4-8.2)
[2023-10-20] MEDS: levETIRAcetam 1000MG/NACL100ML 1,000 MG/100 ML BAG 400 MG IVPB (02:54)
[2023-10-20 02:56] VITALS: BP 116/67; PULSE 82; RESP 18; O2SAT 95
[2023-10-20 03:15] LABS: Amphetamine Screen Urine Negative (Negative); Barbiturate Screen Urine Negative (Negative); Benzodiazepines Screen Urine Negative (Negative); Cannabinoid Screen Urine Positive (Negative); Cocaine Screen Urine Negative (Negative); Methadone Screen Urine Negative (Negative); Opiate Screen Urine Negative (Negative); Phencyclidine Screen Urine Negative (Negative)
[2023-10-20 03:31] VITALS: BP 118/62; PULSE 84; RESP 18; TEMP 36.6; O2SAT 96
[2023-10-22 13:52] LABS: Levetiracetam Keppra <2.0 mcg/mL (6.0-46.0)
[2023-10-24 09:40] LABS: Carbamazepine Tegretol 3.7 mcg/mL (4.0-12.0)
== END 2023-10-20 03:31 | disposition home or self-care (01) ==
PROVIDERS: Emergency Provider Internal Medicine Critical Care Medicine
DX: G40.909 Epilepsy, unspecified, not intractable, without status epilepticus (principal); Z79.899 Other long term (current) drug therapy
CPT/HCPCS: 36415; 70450; 80053; 80156; 80177; 80307; 82550; 83735; 85025; 96374; 99284; J1953

== ENCOUNTER 2023-10-31 19:23 | Emergency (ER) | payer OTHER, SELFPAY ==
[2023-10-31] VITALS (8 sets, daily range): BP systolic 126–151; BP diastolic 67–100; PULSE 78–116; RESP 16–33; TEMP 36.6–37; O2SAT 94–98
[2023-10-31] MEDS: LORazepam INJ (*CRX) 2 MG/ML VIAL IM (19:30)
--- NOTE | 2023-10-31 19:43 | ED.SEIZURE ---
HPI - Seizure General Chief Complaint: Seizure Stated Complaint: possible seizure Time Seen by Provider: 10/31/23 19:26 Source: patient History of Present Illness HPI Narrative: patient is 21-year-old male with past medical history presents today for seizure activity. Patient was with his girlfriend on couch and he started having seizure and he did bite his tongue. He has history of epilepsy. He takes Keppra and carbamazepine. He says that he was unable to get into a neurologist because he missed his 1st appointment. He says that they unable to get into 1 very soon. And call the few home and waiting for an appointment. He was given 2 of Ativan IM by me when he arrived. MD complaint: seizure Onset (ago): minute(s) Description of Episode: loss of consciousness -: minutes(s) (3) Witnessed: Yes - by Bystander Trauma: No Seizure History: Yes (Keppra [address] mg [address]) [address]: home Possible Precipitating Event: none Associated symptoms: denies other symptoms Treatments prior to arrival: none Related Data Home Medications Medication Instructions Recorded Confirmed aripiprazole 5 mg tablet 5 mg PO DAILY 10/20/23 10/31/23 fluoxetine 10 mg capsule 10 mg PO DAILY 10/20/23 10/31/23 Allergies Allergy/AdvReac Type Severity Reaction Status Date / Time No Known Allergies Allergy Verified 09/27/23 10:01 Review of Systems Review of Systems: All systems reviewed & are unremarkable except as noted in HPI and below Constitutional: Constitutional: Reports as per HPI Eyes: Eyes: Reports as per HPI ENT: Reports system reviewed and no additional complaints, except as documented Cardiovascular: Cardiovascular: Reports no additional cardiovascular complaints Respiratory: Respiratory: Reports no additional respiratory complaints Gastrointestinal: Gastrointestinal: Reports no additional gastrointestinal complaints Genitourinary: Genitourinary: Reports no additional male genitourinary complaints Musculoskeletal: Musculoskeletal: Reports no additional musculoskeletal complaints Integumentary/Breasts: Skin/Breast: Reports system reviewed and no additional complaints, except as docu Neurologic: Reports system reviewed and no additional complaints, except as documented Psychiatric: Psychiatric: Reports no additional psychiatric complaints Endocrine: Endocrine: Reports no additional endocrine complaints Hematologic/Lymphatic: Hematologic/Lymphatic: Reports no additional hematologic/lymphatic complaints Allergic/Immunologic: Allergic/Immunologic: Reports no additional allergic/immunologic complaints PMFSH Past Medical History Medical History No active medical problems Seizure Surgical History Surgical History No pertinent past surgical history Exam Const: General: healthy appearing Nutritional Appearance: well nourished Orientation/consciousness: patient oriented x3 HENMT: Head: normal to inspection Ears: external ears normal Face/Nose/Sinus: Normal external nose present Face and sinus: normal facial exam Eyes: Conjunctivae: conjunctivae normal Pupils: Equal, round and reactive pupils present EOM: EOMs intact bilaterally Neck: Neck: normal visual inspection Chest: Chest palpation & inspection: normal inspection of the chest Resp: Effort & Inspection: normal respiratory effort Auscultation: clear to auscultation bilaterally Cardio: Rate: regular rate Rhythm: regular rhythm Heart sounds: Murmur heart sound present GI: GI Palp: Yes Soft to palpation Back/Spine/Pelvis: Back: no CVA tenderness Skin: General skin exam: normal color Rashes: no rashes Wounds: no wounds Neuro: General: patient oriented x3 Cranial nerves: Yes Nystagmus not present Speech: normal speech Extrem: General: normal to inspection Psych: Appearance: grossly normal Mental Status: mental status grossly normal Affect: shell
--- NOTE | 2023-10-31 20:25 | ECG_ITS ---
Measurements Intervals [place] Rate: 93 P: 54 OK: 143 QRS: 50 QRSD: 91 T: 4 QT: 336 QTc: 419 Interpretive Statements SINUS RHYTHM MINIMAL Q WAVES- INF/LAT LEADS BORDERLINE ECG COMPARED TO ECG 04/29/2023 15:12:47 NO SIGNIFICANT CHANGES Electronically Signed On 11-01-2023 6:44:58 CDT by Prasanth Zuleta D.O.
[2023-10-31 20:50] LABS: Basophils Absolute Auto 0.07 K/mm3 (0.00-0.10); Basophils Percent Auto 0.6 % (0.0-1.0); Eosinophils Absolute Auto 0.13 K/mm3 (0.02-0.50); Eosinophils Percent Auto 1.2 % (1.0-6.0); Hematocrit 47.8 % (40.0-54.0); Immature Granulocyte Absolute 0.05 K/mm3 (0.00-0.00); Immature Granulocyte Percent A 0.5 % (0.0-0.0); Lymphocytes Absolute Auto 1.67 K/mm3 (1.10-4.50); Lymphocytes Percent Auto 15.4 % (18.0-42.0); Mean Corpuscular HGB Conc 33.5 g/dL (32.0-36.0); Mean Corpuscular Hemoglobin 29.4 pg (27.0-31.0); Mean Corpuscular Volume 87.7 fL (78.0-102.0); Monocytes Absolute Auto 0.67 K/mm3 (0.10-0.90); Monocytes Percent Auto 6.2 % (2.0-11.0); Neutrophils Absolute Auto 8.3 K/mm3 (1.7-7.2); Neutrophils Percent Auto 76.1 % (50.0-70.0); Platelet Count Result 217 K/mm3 (150-420); Red Blood Count 5.45 M/mm3 (4.70-6.10); Red Cell Distribution Width 12.8 % (11.6-14.4); White Blood Count 10.9 K/mm3 (4.8-10.8)
[2023-10-31 21:07] LABS: Alanine Aminotransferase 96 U/L (16-63); Albumin Level 3.9 g/dL (3.4-5.0); Alkaline Phosphatase 111 U/L (46-116); Anion Gap 9 mmol/L (8-16); Aspartate Amino Transferase 72 U/L (15-37); Bilirubin,Total 0.3 mg/dL (0.00-1.00); Blood Urea Nitrogen 9 mg/dL (7-18); Calcium 9.2 mg/dL (8.5-10.1); Carbon Dioxide 27 mmol/L (21-32); Chloride 104 mmol/L (98-108); Estimated CRCL calculation 142 ml/min; Estimated Glomerular Filt Rate > 60; Glucose 126 mg/dL (70-99); Osmolality Calculated 290 mOsm/kg (285-295); Potassium 3.8 mmol/L (3.5-5.1); Sodium 140 mmol/L (136-145); Total Protein 7.2 g/dL (6.4-8.2)
[2023-11-03 12:21] LABS: Levetiracetam Keppra <2.0 mcg/mL (6.0-46.0)
== END 2023-10-31 21:31 | disposition home or self-care (01) ==
PROVIDERS: Emergency Provider Family Medicine; PCP Internal Medicine
DX: G40.909 Epilepsy, unspecified, not intractable, without status epilepticus (principal); Z79.899 Other long term (current) drug therapy
CPT/HCPCS: 36415; 80053; 80177; 85025; 93005; 96372; 99284; J2060

== ENCOUNTER 2023-11-07 15:02 | Emergency (ER) | payer OTHER, SELFPAY ==
[2023-11-07 15:02] VITALS: BP 137/79; PULSE 92; RESP 16; TEMP 36.7; O2SAT 97
[2023-11-07 15:08] VITALS: BP 137/79; PULSE 92; RESP 16; TEMP 36.7; O2SAT 97
[2023-11-07 15:09] VITALS: O2SAT 99
[2023-11-07 15:15] VITALS: O2SAT 95
[2023-11-07 15:16] VITALS: BP 108/67; PULSE 78; RESP 16; O2SAT 96
[2023-11-07] MEDS: levETIRAcetam 500 MG TABLET 1000 MG PO (15:22)
[2023-11-07] MEDS: ACETAMINOPHEN 500 MG TABLET 1000 MG PO (15:22)
--- NOTE | 2023-11-07 15:35 | ED.SEIZURE ---
HPI - Seizure General Chief Complaint: Seizure Stated Complaint: seizure Time Seen by Provider: 11/07/23 15:04 History of Present Illness HPI Narrative: This is a 23-year-old female, with reported history of epilepsy, brought in to the emergency department by his girlfriend after having seizure. Patient's girlfriend states she was driving with the patient when she noticed tonic-clonic seizure-like activity lasting approximately 5. This reportedly appears similar to previous seizures. She denies witnessing obvious injury. the patient states he last had a seizure approximately 1 week ago. He states he has been taking his Keppra (750 mg twice a day) with the most recent dose taken earlier today. He states he was started on Tegretol (though by whom he does not remember). He believes his seizures increased in frequency since starting the medication. He also complains of moderate, pressure-like global headache, similar to those felt after a seizure. He states he has not seen a neurologist in several years and is scheduled to follow-up with his primary care doctor in 2 days. He denies other recent change in health or medications. Seizure History: Yes (Keppra 750 mg BID) Related Data Allergies Allergy/AdvReac Type Severity Reaction Status Date / Time No Known Allergies Allergy Verified 11/07/23 15:06 Review of Systems Review of Systems: CONSTITUTIONAL: Denies fever, chills, or sweats. CARDIOVASCULAR: Denies chest pain, palpitations, or edema. RESPIRATORY: Denies cough or dyspnea. GASTROINTESTINAL: Denies abdominal pain, nausea, vomiting, or diarrhea. GENITOURINARY: Denies dysuria or hematuria. SKIN: Denies rash or itching. MUSCULOSKELETAL: Denies back pain, joint pain, or myalgia. NEUROLOGIC: Witnessed seizure-like activity, mild headache Denies numbness, dizziness, or weakness. PSYCHIATRIC: Denies anxiety or depression. [facility] Past Medical History Medical History No active medical problems Seizure Surgical History Surgical History No pertinent past surgical history Social History Social History Smoking status: Current every day smoker Alcohol intake: never Substance use: current Substance use type: marijuana Exam Narrative: GENERAL: Well-developed, well-nourished, and in no acute distress. HEAD: Normocephalic, atraumatic. EYES: PERRLA and EOMI. ENT: Nares clear, no rhinorrhea or epistaxis. Mucous membranes moist. Small lesion noted to the inferior aspect of the tongue consistent with tongue biting CHEST: Clear to auscultation. No respiratory distress. No wheezes rales or rhonchi HEART: Regular rate and rhythm. No murmur heard. Normal peripheral pulses. ABDOMEN: Soft, nontender, nondistended, normal active bowel sounds. EXTREMITIES: Normal range of motion. No edema. SKIN: Warm, dry, no rash. NEURO: Alert and oriented x3. No focal deficit. Moving all 4 limbs spontaneously PSYCH: Normal mood and affect. Course Course Emergency Course: 16:05 - The patient's CBC and CMP are grossly unremarkable. Urine drug screen positive for cannabinoids. UDS unremarkable. The patient remained seizure-free in the emergency department. He states his headache is improved. Review of previous documentation shows the patient was started on Tegretol through the emergency department. Will recommend holding Tegretol, increasing his Keppra to 1 g twice a day and following up with Neurology and primary care. I discussed the findings and recommendations with the patient. Discussed return and emergency precautions including signs/symptoms of seizure and stroke. The patient voiced understanding and agreement with the plan. All questions answered to his satisfaction. Vital Signs Vital signs: Vital Signs Temperature 98.1 F 11/07/23 15:02 Pulse Rate 92 11/07/23 15
[2023-11-07 15:38] LABS: Basophils Absolute Auto 0.07 K/mm3 (0.00-0.10); Basophils Percent Auto 0.8 % (0.0-1.0); Eosinophils Absolute Auto 0.19 K/mm3 (0.02-0.50); Eosinophils Percent Auto 2.2 % (1.0-6.0); Hematocrit 51.1 % (40.0-54.0); Hemoglobin 17.4 g/dL (14.0-18.0); Immature Granulocyte Absolute 0.06 K/mm3 (0.00-0.00); Immature Granulocyte Percent A 0.7 % (0.0-0.0); Lymphocytes Absolute Auto 1.67 K/mm3 (1.10-4.50); Lymphocytes Percent Auto 19.4 % (18.0-42.0); Mean Corpuscular HGB Conc 34.1 g/dL (32-36); Mean Corpuscular Hemoglobin 30.1 pg (27.0-31.0); Mean Corpuscular Volume 88.3 fL (78.0-102.0); Mean Platelet Volume 8.7 fl (8.7-11.0); Monocytes Absolute Auto 0.47 K/mm3 (0.10-0.90); Monocytes Percent Auto 5.5 % (2.0-11.0); Neutrophils Absolute Auto 6.16 K/mm3 (1.70-7.20); Neutrophils Percent Auto 71.4 % (50.0-70.0); Platelet Count Result 225 K/mm3 (150-420); Red Blood Count 5.79 M/mm3 (4.70-6.10); Red Cell Distribution Width 12.8 % (11.6-14.4); White Blood Count 8.6 K/mm3 (4.8-10.8)
[2023-11-07 15:41] LABS: Add Urine Microscopic? NO; Appearance Urine Clear (Clear); Bilirubin Urine Negative (Negative); Blood Urine Negative (Negative); Color Urine Light Yellow (Yellow); Glucose Urine UA Negative (Negative); Ketones Urine Negative (Negative); Leukocyte Esterase Ur Negative LEU/UL (Negative); Nitrate Urine Negative (Negative); Protein Urine Negative (Negative); Urobilinogen Urine 0.2 mg/dL (0.2-1.0)
[2023-11-07 15:48] LABS: Amphetamine Screen Urine Negative (Negative); Barbiturate Screen Urine Negative (Negative); Benzodiazepines Screen Urine Negative (Negative); Cannabinoid Screen Urine Positive (Negative); Cocaine Screen Urine Negative (Negative); Methadone Screen Urine Negative (Negative); Opiate Screen Urine Negative (Negative); Phencyclidine Screen Urine Negative (Negative)
[2023-11-07 15:56] LABS: Alanine Aminotransferase 111 U/L (16-63); Albumin Level 4.3 g/dL (3.4-5.0); Alkaline Phosphatase 95 U/L (46-116); Anion Gap 10 mmol/L (8-16); Aspartate Amino Transferase 30 U/L (15-37); Bilirubin,Total 0.5 mg/dL (0.00-1.00); Blood Urea Nitrogen 7 mg/dL (7-18); Calcium 9.4 mg/dL (8.5-10.1); Carbon Dioxide 29 mmol/L (21-32); Chloride 103 mmol/L (98-108); Estimated CRCL calculation 151 ml/min; Estimated Glomerular Filt Rate > 60; Glucose 83 mg/dL (70-99); Magnesium 2.1 mg/dL (1.8-2.4); Osmolality Calculated 291 mOsm/kg (285-295); Potassium 4.3 mmol/L (3.5-5.1); Sodium 142 mmol/L (136-145); Total Protein 7.9 g/dL (6.4-8.2)
[2023-11-07 16:15] VITALS: BP 132/63; PULSE 62; RESP 16; O2SAT 97
== END 2023-11-07 16:15 | disposition home or self-care (01) ==
PROVIDERS: Emergency Provider Preventive Medicine Aerospace Medicine; PCP Internal Medicine
DX: R56.9 Unspecified convulsions (principal); R51.9 Headache, unspecified; F17.200 Nicotine dependence, unspecified, uncomplicated; Z79.899 Other long term (current) drug therapy
CPT/HCPCS: 36415; 80053; 80307; 81003; 83735; 85025; 99283; A9270

== ENCOUNTER 2023-11-18 03:13 | Emergency (ER) | payer OTHER, SELFPAY ==
[2023-11-18] VITALS (7 sets, daily range): BP systolic 140–144; BP diastolic 83–96; PULSE 89–110; RESP 13–23; TEMP 37.2; O2SAT 87–95
--- NOTE | 2023-11-18 03:36 | ED.SEIZURE ---
HPI - Seizure General Chief Complaint: Seizure Stated Complaint: seizure reported with hx Time Seen by Provider: 11/18/23 03:26 Source: patient and family Mode of arrival: ambulatory Limitations: no limitations History of Present Illness HPI Narrative: this is a 23-year-old male that presents with a seizure activity, the patient was sleeping and had a mild tonic clonic seizure with no bowel or bladder dysfunction patient is back to baseline according to his significant other seizure lasted [id number] has a mild tongue biting with some no fever chills no headache no blurry vision no nausea vomiting no abdominal pain no chest pain or shortness of breath. complaint: seizure Onset (ago): hour(s) Description of Episode: tonic-clonic movement -: minutes(s) Trauma: No Seizure History: Yes (Keppra 1000 [address]) [address]: home Possible Precipitating Event: none Associated symptoms: denies other symptoms Treatments prior to arrival: none Related Data Allergies Allergy/AdvReac Type Severity Reaction Status Date / Time No Known Allergies Allergy Verified 11/18/23 03:20 Review of Systems Review of Systems: All systems reviewed & are unremarkable except as noted in HPI and below PMFSH Past Medical History Medical History No active medical problems Seizure Surgical History Surgical History No pertinent past surgical history Social History Social History Smoking status: Current every day smoker Alcohol intake: never Substance use: current Substance use type: marijuana Exam Const: General: healthy appearing Nutritional Appearance: well nourished Orientation/consciousness: patient oriented x3 Limitations: no limitations HENMT: Head: normal to inspection Eyes: Conjunctivae: conjunctivae normal Pupils: Equal, round and reactive pupils present EOM: EOMs intact bilaterally Neck: Neck: normal visual inspection and no lymphadenopathy Chest: Chest palpation & inspection: normal inspection of the chest Resp: Effort & Inspection: normal respiratory effort Auscultation: clear to auscultation bilaterally Cardio: Rate: regular rate Rhythm: regular rhythm GI: GI Palp: Yes Soft to palpation Auscultation: normal bowel sounds Neuro: General: patient oriented x3, moves all extremities, no meningeal signs and no focal motor deficits Cranial nerves: Yes Nystagmus not present Speech: normal speech Extrem: General: normal to inspection Psych: Appearance: grossly normal Course Course Emergency Course: No current seizure activity the patient is back to his baseline and has been taking his Keppra 1000 b.i.d. has yet to follow up with Neurology, reiterated the importance of establishing with the neurologist. Will increase his Keppra to 1000 in the morning and 1500 in the evening. Vital Signs Vital signs: Vital Signs Pulse Rate 102 H 11/18/23 03:13 Oxygen Delivery Room Air 11/18/23 03:13 Temperature 37.2 C 11/18/23 03:18 Pulse Rate 102 H 11/18/23 03:18 Respiratory Rate 13 11/18/23 03:18 Blood Pressure 140/96 H 11/18/23 03:18 Pulse Oximetry 95 11/18/23 03:18 Oxygen Delivery Room Air 11/18/23 03:18 Critical Care Time Critical Care Time Critical Care Time: No Discharge Plan Discharge Clinical Impression: Seizure Patient Disposition: Home, Self-Care Condition: Stable Instructions: Antibiotic Form, Epilepsy (ED) Additional Instructions: take medicine as prescribed, advised patient to take 1000mg of Keppra in the morning and 1500mg in the evening and follow-up with Neurology as soon as possible for further evaluation and treatment. Advised to follow-up with primary care physician within the next 2 to 3 days for further evaluation. Prescriptions: No Action levetiracetam 1,000 mg table
--- NOTE | 2023-11-18 03:43 | PC.NURSE ---
PT IS ABLE TO ANSWER QUESTIONS, SLOW TO RESPOND TO SOME OF THE ANSWERS. PT IS ALERT AND REPORTS HE IS TIRED. PT DENIES SHAFFER.
== END 2023-11-18 03:50 | disposition home or self-care (01) ==
PROVIDERS: Emergency Provider Emergency Medicine; PCP Internal Medicine
DX: G40.909 Epilepsy, unspecified, not intractable, without status epilepticus (principal); F17.200 Nicotine dependence, unspecified, uncomplicated; F12.90 Cannabis use, unspecified, uncomplicated
CPT/HCPCS: 99284

== ENCOUNTER 2023-11-20 09:59 | Emergency (ER) | payer OTHER, SELFPAY ==
--- NOTE | ~2023-11-20 | CT_ITS ---
EXAMINATION: CT cervical spine wo con DATE: 11/20/2023 10:34 INDICATION: Seizure. Fall. Posterior neck pain. TECHNIQUE: Computed tomography (CT) of the cervical spine was performed without intravenous contrast. Automated exposure control and iterative reconstruction technique were employed. Exam dose: 590.84 mGy-cm total exam DLP. COMPARISON: 07/16/2023 CT cervical spine FINDINGS: There is reversal of cervical curvature which may be due to muscle spasm. Normal atlantoaxial alignment. C1 and C2 are normally aligned and the odontoid process is intact. No fracture or dislocation or locked facet or prevertebral soft tissue swelling. The cervical interspaces are well preserved. No recent fracture or dislocation or locked facet or prevertebral soft tissue swelling.. IMPRESSION: Reversal of cervical curvature which may be due to muscle spasm Reviewed, dictated and finalized at [facility] Reviewed, dictated and finalized at [facility].
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
[2023-11-20 09:59] VITALS: BP 141/82; PULSE 95; RESP 17; TEMP 36.4; O2SAT 95
--- NOTE | 2023-11-20 10:04 | ED.SEIZURE ---
HPI - Seizure General Chief Complaint: Head Injury Stated Complaint: bit tongue Time Seen by Provider: 11/20/23 10:03 Source: patient Mode of arrival: ambulatory Limitations: no limitations History of Present Illness HPI Narrative: Patient is a 23-year-old male with a seizure disorder known to this emergency room for noncompliance of medication. He started taking his medication and disease process more serious 2 weeks ago and has been taking his medication properly. He recently has been increased to a 1000 mg in the a.m. and 1500 mg in the p.m.. He claims compliance at this time with medication. He had about a 1 minute seizure at home 30 minutes prior to arrival. This was unwitnessed. He hurt his head and neck. He also bit his tongue and there was blood at the scene. 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, either self-employed or otherwise?: No Related Data Home Medications Medication Instructions Recorded Confirmed levetiracetam 1,000 mg tablet See Rx Instructions .Route .COMPLEX 11/20/23 11/20/23 Allergies Allergy/AdvReac Type Severity Reaction Status Date / Time No Known Allergies Allergy Verified 11/20/23 10:16 Review of Systems Review of Systems: All systems reviewed & are unremarkable except as noted in HPI and below Constitutional: Constitutional: Reports no additional constitutional complaints Eyes: Eyes: Reports no additional eye complaints ENT: Reports system reviewed and no additional complaints, except as documented Cardiovascular: Cardiovascular: Reports no additional cardiovascular complaints Respiratory: Respiratory: Reports no additional respiratory complaints Gastrointestinal: Gastrointestinal: Reports no additional gastrointestinal complaints Genitourinary: Genitourinary: Reports no additional male genitourinary complaints Musculoskeletal: Musculoskeletal: Reports no additional musculoskeletal complaints Integumentary/Breasts: Skin/Breast: Reports system reviewed and no additional complaints, except as docu Neurologic: Reports system reviewed and no additional complaints, except as documented Psychiatric: Psychiatric: Reports no additional psychiatric complaints Endocrine: Endocrine: Reports no additional endocrine complaints Hematologic/Lymphatic: Hematologic/Lymphatic: Reports no additional hematologic/lymphatic complaints Allergic/Immunologic: Allergic/Immunologic: Reports no additional allergic/immunologic complaints PMFSH Past Medical History Medical History No active medical problems Seizure Surgical History Surgical History No pertinent past surgical history Social History Social History Smoking status: Current every day smoker Alcohol intake: never Substance use: current Substance use type: marijuana Exam Const: General: healthy appearing Nutritional Appearance: well nourished Orientation/consciousness: patient oriented x3 HENMT: Head: normal to inspection Ears: external ears normal Face/Nose/Sinus: Normal external nose present Other: under side of tongue has a few small abrasions without bleeding; tongue intact Eyes: Conjunctivae: conjunctivae normal Pupils: Equal, round and reactive pupils present EOM: EOMs intact bilaterally Neck: Neck: normal visual inspection Other: tender cervical spine to palpation Chest: Chest palpation & inspection: no
[2023-11-20] MEDS: levETIRAcetam 500 MG TABLET 1000 MG PO (10:34)
[2023-11-20 10:54] VITALS: BP 126/72; PULSE 77; RESP 17; TEMP 36.6; O2SAT 98
== END 2023-11-20 10:54 | disposition home or self-care (01) ==
LOC: CHSED 10:53
PROVIDERS: Emergency Provider Emergency Medicine; PCP Internal Medicine
DX: G40.909 Epilepsy, unspecified, not intractable, without status epilepticus (principal); S09.90XA Unspecified injury of head, initial encounter; Z91.148 Patient's other noncompliance with medication regimen for other reason; F17.200 Nicotine dependence, unspecified, uncomplicated
CPT/HCPCS: 70450; 72125; 99284; A9270

== ENCOUNTER 2023-12-03 17:20 | Emergency (ER) | payer OTHER, SELFPAY ==
--- NOTE | ~2023-12-03 | XR_ITS ---
EXAMINATION: XR shoulder RT min 2V DATE: 12/03/2023 17:53 INDICATION: Right shoulder pain. Fall. TECHNIQUE: 3 views of right shoulder were obtained. COMPARISON: Right shoulder radiographs 09/27/2023 FINDINGS: Bone alignment is normal. No fracture. Joint spaces are normal. IMPRESSION: 1. Normal right shoulder. Reviewed, dictated and finalized at location E. IMPRESSION: 1. Normal right shoulder.
--- NOTE | ~2023-12-03 | XR_ITS ---
EXAMINATION: XR ankle LT min 3V DATE: 12/03/2023 17:53 INDICATION: Left ankle pain. Fall. TECHNIQUE: 3 views of left ankle were obtained. COMPARISON: None. FINDINGS: Bone alignment is normal. No fracture. Joint spaces are normal. There is ankle soft tissue swelling. IMPRESSION: 1. No fracture. Reviewed, dictated and finalized at location E. IMPRESSION: 1. No fracture.
[2023-12-03 17:22] VITALS: BP 138/77; PULSE 87; RESP 18; TEMP 36.6; O2SAT 98
--- NOTE | 2023-12-03 17:30 | PC.NURSE ---
Patient taken to Xray.
--- NOTE | 2023-12-03 17:48 | ED.LOWEXIN ---
HPI - Extremity Injury (Lower) General Chief Complaint: Extremity Injury, Lower Stated Complaint: L ankle pain/fall Source: patient Mode of arrival: ambulatory Limitations: no limitations History of Present Illness HPI Narrative: this is a 23-year-old male with a history of seizure disorder had a surgery seizure earlier this morning and fell down a few steps causing an injury to his right shoulder and to his left ankle and abrasions to the left facial area with no loss of consciousness pain level about a 6/10 specially in the left ankle with movement there is some swelling and decreased range of motion along with decreased range of motion in his right shoulder no other injuries noted patient currently is on Keppra and had numerous visits to the ER and have increased his Keppra dose had previous visits. No loss of bowel or bladder function no tongue biting he and currently back to baseline with no postictal episode. complaint: ankle injury Onset (ago): hour(s) Injury: Left: ankle Type of Injury: inversion Place: home Severity: moderate Severity scale (1-10): 6 Related Data Home Medications Medication Instructions Recorded Confirmed levetiracetam 1,000 mg tablet See Rx Instructions .Route .COMPLEX 11/20/23 11/20/23 Allergies Allergy/AdvReac Type Severity Reaction Status Date / Time No Known Allergies Allergy Verified 11/20/23 10:16 Review of Systems Review of Systems: All systems reviewed & are unremarkable except as noted in HPI and below PMFSH Past Medical History Medical History No active medical problems Seizure Surgical History Surgical History No pertinent past surgical history Social History Social History Smoking status: Current every day smoker Alcohol intake: never Substance use: current Substance use type: marijuana Exam Const: General: healthy appearing, no acute distress and alert Nutritional Appearance: well nourished Orientation/consciousness: patient oriented x3 Limitations: no limitations HENMT: Head: normal to inspection Ears: external ears normal Eyes: Conjunctivae: conjunctivae normal Pupils: Equal, round and reactive pupils present EOM: EOMs intact bilaterally Direct Ophthalmoscopy: no photophobia Neck: Neck: normal visual inspection, no lymphadenopathy and no meningeal signs Chest: Chest palpation & inspection: normal inspection of the chest Resp: Effort & Inspection: normal respiratory effort Auscultation: clear to auscultation bilaterally Cardio: Rate: regular rate Rhythm: regular rhythm GI: GI Palp: Yes Soft to palpation Auscultation: normal bowel sounds Skin: Wounds: wounds noted Other: small abrasion to the left upper face area Neuro: General: patient oriented x3, moves all extremities, no meningeal signs and no focal motor deficits Extrem: Other: pain and swelling of left ankle with movement and palpation Course Course Emergency Course: patient rating his pain about a 6/10 receive 60mg IM Toradol, x-rays of the shoulder and the ankle reviewed. Advised patient to follow with some neurology to have his medications adjusted. Vital Signs Vital signs: Vital Signs Temperature 36.6 C 12/03/23 17:22 Pulse Rate 87 12/03/23 17:22 Respiratory Rate 18 12/03/23 17:22 Blood Pressure 138/77 12/03/23 17:22 Pulse Oximetry 98 12/03/23 17:22 Oxygen Delivery Room Air 12/03/23 17:22 Temperature 36.6 C 12/03/23 17:22 Pulse Rate 87 12/03/23 17:22 Respiratory Rate 18 12/03/23 17:22 Blood Pressure 138/77 12/03/23 17:22 Pulse Oximetry 98 12/03/23 17:22 Oxygen Delivery Room Air 12/03/23 17:22 Critical Care Time Critical Care Time Critical Care Time: No Discharge Plan Discharge Clinical Impression: Ankle sprain and strain
--- NOTE | 2023-12-03 17:50 | PC.NURSE ---
Patient back in room from xray.
[2023-12-03] MEDS: KETOROLAC (*BKC) 60 MG/2 ML VIAL IM (18:08)
[2023-12-03 18:26] VITALS: BP 132/75; PULSE 85; RESP 17; TEMP 36.6; O2SAT 100
== END 2023-12-03 18:26 | disposition home or self-care (01) ==
PROVIDERS: Emergency Provider Emergency Medicine; PCP Internal Medicine
DX: S43.401A Unspecified sprain of right shoulder joint, initial encounter (principal); S93.402A Sprain of unspecified ligament of left ankle, initial encounter; W10.9XXA Fall (on) (from) unspecified stairs and steps, initial encounter; G40.909 Epilepsy, unspecified, not intractable, without status epilepticus; F17.210 Nicotine dependence, cigarettes, uncomplicated
CPT/HCPCS: 73030; 73610; 96372; 99284; J1885

== ENCOUNTER 2024-02-07 06:30 | Emergency (ER) | payer OTHER, SELFPAY ==
--- NOTE | ~2024-02-07 | XR_ITS ---
EXAMINATION: XR shoulder RT min 2V DATE: 02/07/2024 07:00 INDICATION: Right shoulder pain. TECHNIQUE: 4 views of right shoulder were obtained. COMPARISON: Right shoulder radiographs 12/03/2023 FINDINGS: Bone alignment is normal. No fracture. Joint spaces are normal. IMPRESSION: 1. Normal right shoulder. Reviewed, dictated and finalized at location E. IMPRESSION: 1. Normal right shoulder.
[2024-02-07 06:32] VITALS: BP 133/90; PULSE 87; RESP 18; TEMP 36.5; O2SAT 96
--- NOTE | 2024-02-07 06:39 | ED.SEIZURE ---
HPI - Seizure General Chief Complaint: Seizure <Alon Randhawa III, DO - Last Filed: 02/09/24 12:36> Stated Complaint: possible seizure <Alon Randhawa III, DO - Last Filed: 02/09/24 12:36> Time Seen by Provider: 02/07/24 06:37 <Alon Randhawa III, DO - Last Filed: 02/09/24 12:36> History of Present Illness HPI Narrative: Pt had seizure this morning and hurt his right shoulder. Pt has had 5 seizures over the last several days. Pt takes keppra and trileptal for seizures and has not missed any doses. Pt denies falling or hitting head. Seizure was witnessed. Pt denies SHAFFER. <Alon Randhawa III, DO - Last Filed: 02/09/24 12:36> Seizure History: Yes <Alon Randhawa III, DO - Last Filed: 02/09/24 12:36> Related Data Home Medications: Home Medications Medication Instructions Recorded Confirmed levetiracetam 1,000 mg tablet 1,000 mg PO BID 02/07/24 (Keppra) <Alon Randhawa III, DO - Last Filed: 02/09/24 12:36> Allergies/Adverse Reactions: Allergies Allergy/AdvReac Type Severity Reaction Status Date / Time No Known Allergies Allergy Verified 02/07/24 06:51 <Alon Randhawa III, DO - Last Filed: 02/09/24 12:36> Review of Systems Review of Systems: All systems reviewed & are unremarkable except as noted in HPI and below <Alon Randhawa III, DO - Last Filed: 02/09/24 12:36> [facility] Past Medical History Medical History: Medical History (Updated 02/08/24 @ 00:00 by Neville Dee) No active medical problems <Alon Randhawa III, DO - Last Filed: 02/09/24 12:36> Surgical History Surgical History: Surgical History No pertinent past surgical history <Alon Randhawa III, DO - Last Filed: 02/09/24 12:36> Family History Family History: Family History (Updated 01/03/24 @ 13:46 by Lorraine N. Stamper) Mother COPD (chronic obstructive pulmonary disease) Degenerative disc disease Father Seizures <Alon Dave Randhawa III, DO - Last Filed: 02/09/24 12:36> Social History Social History: Social History Smoking status: Current every day smoker Alcohol intake: never Substance use: current Substance use type: marijuana <Alon Dave Randhawa III, DO - Last Filed: 02/09/24 12:36> Exam Const: General: healthy appearing and no acute distress <Alon Dave Randhawa III, DO - Last Filed: 02/09/24 12:36> Nutritional Appearance: well nourished <Alon Dave Randhawa III, DO - Last Filed: 02/09/24 12:36> Orientation/consciousness: patient oriented x3 <Alon Dave Randhawa III, DO - Last Filed: 02/09/24 12:36> Limitations: no limitations <Alon Dave Randhawa III, DO - Last Filed: 02/09/24 12:36> HENMT: Head: normal to inspection <Alon Dave Randhawa III, DO - Last Filed: 02/09/24 12:36> Throat: posterior oropharynx normal <Alon Dave Randhawa III, DO - Last Filed: 02/09/24 12:36> Eyes: Conjunctivae: conjunctivae normal <Alon Dave Randhawa III, DO - Last Filed: 02/09/24 12:36> EOM: EOMs intact bilaterally <Alon Dave Randhawa III, DO - Last Filed: 02/09/24 12:36> Neck: Neck: normal visual inspection and no lymphadenopathy <Alon Dave Randhawa III, DO - Last Filed: 02/09/24 12:36> Resp: Effort & Inspection: normal respiratory effort <Alon Dave Randhawa III, DO - Last Filed: 02/09/24 12:36> Auscultation: clear to auscultation bilaterally <Alon Dave Randhawa III, DO - Last Filed: 02/09/24 12:36> Cardio: Rate: regular rate <Alon Dave Randhawa III, DO - Last Filed: 02/09/24 12:36> Rhythm: regular rhythm <Alon Dave Randhawa III, DO - Last Filed: 02/09/24 12:36> GI: GI Palp: Yes Soft to palpation and No Tenderness to palpation present (GI) <Alon Randhawa III, DO - Last Filed: 02/09/24 12:36> Auscultation: normal bowel sounds <Alon Randhawa III, DO - Last Filed: 02/09/24 12:36> Skin: General skin exam: normal color
[2024-02-07 07:07] LABS: Basophils Absolute Auto 0.06 K/mm3 (0.00-0.10); Basophils Percent Auto 0.8 % (0.0-1.0); Eosinophils Absolute Auto 0.21 K/mm3 (0.02-0.50); Eosinophils Percent Auto 2.7 % (1.0-6.0); Hemoglobin 15.8 g/dL (14.0-18.0); Immature Granulocyte Absolute 0.08 K/mm3 (0.00-0.00); Lymphocytes Absolute Auto 2.19 K/mm3 (1.10-4.50); Lymphocytes Percent Auto 28.4 % (18.0-42.0); Mean Corpuscular HGB Conc 34.3 g/dL (32-36); Mean Corpuscular Hemoglobin 30.4 pg (27.0-31.0); Mean Corpuscular Volume 88.5 fL (78.0-102.0); Mean Platelet Volume 9.1 fl (8.7-11.0); Monocytes Absolute Auto 0.56 K/mm3 (0.10-0.90); Monocytes Percent Auto 7.3 % (2.0-11.0); Neutrophils Percent Auto 59.8 % (50.0-70.0); Platelet Count Result 190 K/mm3 (150-420); Red Cell Distribution Width 12.1 % (11.6-14.4); White Blood Count 7.7 K/mm3 (4.8-10.8)
[2024-02-07] MEDS: KETOROLAC 30 MG/ML VIAL (*BKC) IM (07:09)
--- NOTE | 2024-02-07 07:10 | PC.NURSE ---
patient medicated, see MAR. patient awake and alert without distress with vss, father at bedside. patient unsure of current up to date medications or dosages. patient education provided as to importance of knowing which medications he takes, suggested to put that information into his notes on his phone once he gets home so it is with him when he goes to a hospital/facility. understanding verbalized by patient. update provided regarding awaiting results of blood work and imaging. patient report given to LASHON Ellison for continuation of care for day shift. call light within reach.
--- NOTE | 2024-02-07 07:20 | PC.NURSE ---
unable to verify home medications, pt does not know what he takes or the doses, PMD office nor pharmacy are open at this hour.
[2024-02-07 07:23] LABS: Alanine Aminotransferase 119 U/L (16-63); Albumin Level 3.9 g/dL (3.4-5.0); Alkaline Phosphatase 124 U/L (46-116); Anion Gap 7 mmol/L (4-12); Aspartate Amino Transferase 55 U/L (15-37); Bilirubin,Total 0.3 mg/dL (0.00-1.00); Blood Urea Nitrogen 8 mg/dL (7-18); Calcium 9.1 mg/dL (8.5-10.1); Carbon Dioxide 29 mmol/L (21-32); Chloride 102 mmol/L (98-108); Estimated CRCL calculation 144 ml/min; Estimated Glomerular Filt Rate > 60; Glucose 104 mg/dL (70-99); Osmolality Calculated 284 mOsm/kg (285-295); Potassium 3.9 mmol/L (3.5-5.1); Sodium 138 mmol/L (136-145); Total Protein 7.3 g/dL (6.4-8.2)
[2024-02-07 07:52] VITALS: PULSE 70; RESP 18; O2SAT 95
[2024-02-07] MEDS: levETIRAcetam 500 MG TABLET PO (08:00)
[2024-02-07 08:10] VITALS: BP 125/72
--- NOTE | 2024-02-07 08:14 | PC.NURSE ---
PT WAS SLEEPING PRIOR TO DC;AROUSED WITHOUT DIFFICULTY TO VOICE. PT IS A& [facility] UPON DC.
== END 2024-02-07 08:10 | disposition home or self-care (01) ==
PROVIDERS: Emergency Medicine; Emergency Provider Emergency Medicine; PCP Family Medicine
DX: G40.909 Epilepsy, unspecified, not intractable, without status epilepticus (principal); F17.200 Nicotine dependence, unspecified, uncomplicated; Z79.899 Other long term (current) drug therapy
CPT/HCPCS: 36415; 73030; 80053; 85025; 96372; 99283; A9270; J1885

== ENCOUNTER 2024-03-14 13:07 | Emergency (ER) | payer OTHER, SELFPAY ==
--- NOTE | ~2024-03-14 | CT_ITS ---
EXAMINATION: 1. CT facial & cervical spine wo DATE: 03/14/2024 14:33 INDICATION: Post ictal with facial injury TECHNIQUE: 1. Computed tomography (CT) of the maxillofacial region and of the cervical spine were performed with out intravenous contrast. Sagittal and coronal reconstructions of both regions were obtained. Automat ed exposure control and iterative reconstruction technique were employed. The dose-length product was 631.28 mGy-cm. COMPARISON: 11/20/2023 and 01/03/2023 FINDINGS: Maxillofacial CT: Mild contusion in the left malar region. No maxillofacial fractures. Specifically the nasal bones, zy gomatic arches, mandible and matthews of the orbits and paranasal sinuses are all intact. Mild mucosal t hickening at the bilateral axillary sinuses and decreased partial opacification of the cephalad aspec t of the bilateral frontal sinuses. Orbits are normal. Mastoid air cells and middle ear cavities are clear. Cervical spine CT: Straightening of the previously mildly kyphotic cervical spine. No spondylolisthesis or facet subluxa tion. Vertebral body heights are normal. No fracture. Unchanged minimal anterior disc height loss at C4-C5. No central canal stenosis. Minimal cervical facet and uncovertebral osteoarthritis. No cervica l neural foraminal stenosis. Cervical soft tissues are unremarkable. Visualized upper lungs are clear . IMPRESSION: 1. No acute maxillofacial or cervical spine osseous abnormality. Reviewed, dictated and finalized at location A.
--- NOTE | ~2024-03-14 | XR_ITS ---
XR shoulder RT min 2V 03/14/2024 14:33 INDICATION: Right shoulder pain PROCEDURE: 2 views right shoulder COMPARISON: 02/07/2024 FINDINGS: Fracture, dislocation or subluxation is not identified. The soft tissues appear within norm al limits. No foreign bodies are identified. IMPRESSION: 1: NO ACUTE BONE OR JOINT ABNORMALITY IDENTIFIED. Reviewed, dictated and finalized at location B.
--- NOTE | ~2024-03-14 | CT_ITS ---
EXAMINATION: CT brain wo con DATE: 03/14/2024 14:32 INDICATION: Seizure with head and facial injury post fall TECHNIQUE: Computed tomography (CT) of the head was performed without intravenous contrast. Sagittal and coronal reconstructions were performed. The mA was adjusted according to patient size. Iterative reconstruction technique was employed. The dose-length product was 605.33 mGy-cm. COMPARISON: head CT dated 11/20/2023 FINDINGS: No fracture. No acute intracranial hemorrhage, acute infarction or abnormal extra axial fluid collect ion. Ventricles are normal and symmetric. No mass/mass effect. Mild mucosal thickening and decrease i n the partial opacification of the cephalad aspect of the bilateral frontal sinuses. The orbits and m astoid air cells are normal. IMPRESSION: 1. Normal brain. No fracture or acute intracranial process. Reviewed, dictated and finalized at location A.
--- NOTE | 2024-03-14 13:09 | ED.SEIZURE ---
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 No abdominal pain. -- he has had multiple episodes of seizures in the past. According to his mother the patient has had 2 episodes of seizures. He had a 1st episode following which he had a 2nd episode a little later. no oral injury. No incontinence. 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 of your employment, either self-employed or otherwise?: No Related Data Home Medications Medication Instructions Recorded Confirmed oxcarbazepine 300 mg tablet 300 mg PO DAILY 03/14/24 03/14/24 Allergies Allergy/AdvReac Type Severity Reaction Status Date / Time No Known Allergies Allergy Verified 03/14/24 13:35 Review of Systems Review of Systems: All systems reviewed & are unremarkable except as noted in HPI and below Constitutional: Constitutional: Reports as per HPI and Reports no additional constitutional complaints Eyes: Eyes: Reports as per HPI and Reports no additional eye complaints ENT: Reports system reviewed and no additional complaints, except as documented and Reports as per HPI Cardiovascular: Cardiovascular: Reports as per HPI and Reports no additional cardiovascular complaints Respiratory: Respiratory: Reports as per HPI and Reports no additional respiratory complaints Gastrointestinal: Gastrointestinal: Reports as per HPI, Reports no additional gastrointestinal complaints, Reports nausea and Reports vomiting Genitourinary: Genitourinary: Reports no additional male genitourinary complaints and Reports as per HPI Musculoskeletal: Musculoskeletal: Reports no additional musculoskeletal complaints and Reports as per HPI Comments: left shoulder pain Integumentary/Breasts: Comments: facial contusion over the forehead and nose Neurologic: Reports system reviewed and no additional complaints, except as documented and Reports as per HPI Comments: no neuro deficits. Complains of drowsiness and headache Psychiatric: Psychiatric: Reports no additional psychiatric complaints and Reports as per HPI Endocrine: Endocrine: Reports no additional endocrine complaints and Reports as per HPI Hematologic/Lymphatic: Hematologic/Lymphatic: Reports no additional hematologic/lymphatic complaints and Reports as per HPI Allergic/Immunologic: Allergic/Immunologic: Reports no additional allergic/immunologic complaints and Reports as per HPI [facility] Past Medical History Medical History No active medical problems Surgical History Surgical History No pertinent past surgical history Family History Family History Mother COPD (chronic obstructive pulmonary disease) Degenerative disc disease Father Seizures Social History Social History Smoking status: Current every day smoker Alcohol intake: never Substance use: current Substance use type: marijuana Exam Narrative: blood pressure 143/92 Const: General: ill appearing Nutritional Appearance:
--- NOTE | 2024-03-14 13:10 | ECG_ITS ---
Test Date: 2024-03-14 13:38:10 Measurements Intervals [place] Rate: 82 P: 60 VT: 148 QRS: 39 QRSD: 91 T: 11 QT: 365 QTc: 427 Interpretive Statements SINUS RHYTHM CONSIDER INFERIOR INFARCT, AGE INDETERMINATE BASELINE ARTIFACT- AVR, AVF, V1, V4-V6 ABNORMAL ECG No previous ECG available for comparison Electronically Signed On 03-14-2024 14:03:57 CDT by Prasanth Zuleta D.O.
[2024-03-14 13:11] VITALS: BP 143/92; PULSE 90; RESP 12; TEMP 36.2; O2SAT 97
[2024-03-14 13:31] VITALS: BP 126/81; O2SAT 98
[2024-03-14] MEDS: ONDANSETRON HCL ODT 4 MG TABLET PO (13:39)
[2024-03-14 13:40] LABS: Basophils Absolute Auto 0.06 K/mm3 (0.00-0.10); Basophils Percent Auto 0.5 % (0.0-1.0); Eosinophils Absolute Auto 0.05 K/mm3 (0.02-0.50); Eosinophils Percent Auto 0.4 % (1.0-6.0); Hematocrit 45.8 % (40.0-54.0); Hemoglobin 15.4 g/dL (14.0-18.0); Immature Granulocyte Absolute 0.07 K/mm3 (0.00-0.00); Immature Granulocyte Percent A 0.6 % (0.0-0.0); Lymphocytes Absolute Auto 0.99 K/mm3 (1.10-4.50); Lymphocytes Percent Auto 8.7 % (18.0-42.0); Mean Corpuscular HGB Conc 33.6 g/dL (32-36); Mean Corpuscular Hemoglobin 29.8 pg (27.0-31.0); Mean Corpuscular Volume 88.6 fL (78.0-102.0); Monocytes Absolute Auto 0.78 K/mm3 (0.10-0.90); Monocytes Percent Auto 6.9 % (2.0-11.0); Neutrophils Absolute Auto 9.43 K/mm3 (1.70-7.20); Neutrophils Percent Auto 82.9 % (50.0-70.0); Platelet Count Result 244 K/mm3 (150-420); Red Blood Count 5.17 M/mm3 (4.70-6.10); Red Cell Distribution Width 12.4 % (11.6-14.4); White Blood Count 11.4 K/mm3 (4.8-10.8)
[2024-03-14] MEDS: levETIRAcetam 1000MG/NACL100ML 1,000 MG/100 ML BAG 400 MG IVPB (13:46)
[2024-03-14 13:56] LABS: Alanine Aminotransferase 175 U/L (16-63); Albumin Level 4.1 g/dL (3.4-5.0); Alkaline Phosphatase 163 U/L (46-116); Anion Gap 11 mmol/L (4-12); Aspartate Amino Transferase 57 U/L (15-37); Bilirubin,Total 0.2 mg/dL (0.00-1.00); Blood Urea Nitrogen 9 mg/dL (7-18); Calcium 9.6 mg/dL (8.5-10.1); Carbon Dioxide 25 mmol/L (21-32); Chloride 103 mmol/L (98-108); Estimated CRCL calculation 145 ml/min; Estimated Glomerular Filt Rate > 60; Glucose 89 mg/dL (70-99); Lipase 44 U/L (16-77); Magnesium 2.6 mg/dL (1.8-2.4); Osmolality Calculated 285 mOsm/kg (285-295); Phenytoin Dilantin 1 ug/mL (10-20); Potassium 3.9 mmol/L (3.5-5.1); Sodium 139 mmol/L (136-145); Total Protein 7.9 g/dL (6.4-8.2)
--- NOTE | 2024-03-14 14:38 | PC.NURSE ---
Pt returned from CAT scan via stretcher. Urine obtained and delivered to lab.
[2024-03-14 14:47] LABS: Amphetamine Screen Urine Negative (Negative)
[2024-03-14 14:48] LABS: Barbiturate Screen Urine Negative (Negative); Benzodiazepines Screen Urine Negative (Negative); Cannabinoid Screen Urine Positive (Negative); Cocaine Screen Urine Negative (Negative); Methadone Screen Urine Negative (Negative); Opiate Screen Urine Negative (Negative); Phencyclidine Screen Urine Negative (Negative)
[2024-03-14 15:13] VITALS: BP 120/48; O2SAT 93
[2024-03-14 15:16] VITALS: BP 115/52; O2SAT 93
--- NOTE | 2024-03-14 15:24 | PC.NURSE ---
Pt sleeping comfortably. Side rails up, call light w/in reach. No complaints at this time. No family present.
[2024-03-14 15:31] VITALS: BP 114/52; O2SAT 94
[2024-03-14] MEDS: LACTATED RINGERS 1,000 ML 999 ML IV CONT (15:38)
[2024-03-14 15:46] VITALS: BP 100/40; O2SAT 94
--- NOTE | 2024-03-14 16:30 | PC.NURSE ---
Pt resting comfortably. Mother at bedside. Bed rails up, call light within reach.
--- NOTE | 2024-03-26 11:32 | PC.NURSE ---
Pt's LR was dc at 1630 on 03/14/24. Pt received 1000mls.
== END 2024-03-14 16:58 | disposition home or self-care (01) ==
PROVIDERS: Emergency Provider Internal Medicine Critical Care Medicine; PCP Family Medicine
DX: G40.909 Epilepsy, unspecified, not intractable, without status epilepticus (principal); R74.01 Elevation of levels of liver transaminase levels; S09.90XA Unspecified injury of head, initial encounter; F17.200 Nicotine dependence, unspecified, uncomplicated; W30.89XA Contact with other specified agricultural machinery, initial encounter
CPT/HCPCS: 36415; 70450; 70486; 72125; 73030; 80053; 80185; 80307; 83605; 83690; 83735; 85025; 93005; 96361; 96365; 96367; 99284; A9270; J1953; J7120; Q2009

== ENCOUNTER 2024-04-18 12:04 | Outpatient (CLI) | payer OTHER, SELFPAY ==
[2024-04-18 13:07] LABS: Phenytoin Dilantin 1 ug/mL (10-20)
== END 2024-04-18 12:05 | disposition home or self-care (01) ==
LOC: CHSLAB 12:06
PROVIDERS: PCP Family Medicine; Visit Provider Family Medicine
DX: G40.309 Generalized idiopathic epilepsy and epileptic syndromes, not intractable, without status epilepticus (principal)
CPT/HCPCS: 36415; 80185

== ENCOUNTER 2024-05-10 14:51 | Outpatient (CLI) | payer OTHER, SELFPAY ==
[2024-05-10 16:17] LABS: Basophils Absolute Auto 0.06 K/mm3 (0.00-0.10); Basophils Percent Auto 0.8 % (0.0-1.0); Eosinophils Absolute Auto 0.13 K/mm3 (0.02-0.50); Eosinophils Percent Auto 1.7 % (1.0-6.0); Hematocrit 45.5 % (40.0-54.0); Hemoglobin 15.3 g/dL (14.0-18.0); Immature Granulocyte Absolute 0.03 K/mm3 (0.00-0.00); Immature Granulocyte Percent A 0.4 % (0.0-0.0); Lymphocytes Absolute Auto 2.18 K/mm3 (1.10-4.50); Lymphocytes Percent Auto 27.7 % (18.0-42.0); Mean Corpuscular HGB Conc 33.6 g/dL (32-36); Mean Corpuscular Hemoglobin 30.1 pg (27.0-31.0); Mean Corpuscular Volume 89.4 fL (78.0-102.0); Mean Platelet Volume 9.3 fl (8.7-11.0); Monocytes Absolute Auto 0.45 K/mm3 (0.10-0.90); Monocytes Percent Auto 5.7 % (2.0-11.0); Neutrophils Absolute Auto 5.01 K/mm3 (1.70-7.20); Neutrophils Percent Auto 63.7 % (50.0-70.0); Platelet Count Result 239 K/mm3 (150-420); Red Blood Count 5.09 M/mm3 (4.70-6.10); Red Cell Distribution Width 12.6 % (11.6-14.4); White Blood Count 7.9 K/mm3 (4.8-10.8)
[2024-05-10 17:13] LABS: Alanine Aminotransferase 100 U/L (16-63); Albumin Level 4.3 g/dL (3.4-5.0); Alkaline Phosphatase 120 U/L (46-116); Anion Gap 7 mmol/L (4-12); Aspartate Amino Transferase 32 U/L (15-37); Bilirubin,Total 0.3 mg/dL (0.00-1.00); Blood Urea Nitrogen 7 mg/dL (7-18); Calcium 9.3 mg/dL (8.5-10.1); Carbon Dioxide 30 mmol/L (21-32); Chloride 101 mmol/L (98-108); Estimated Glomerular Filt Rate > 60; Glucose 83 mg/dL (70-99); Osmolality Calculated 283 mOsm/kg (285-295); Potassium 3.7 mmol/L (3.5-5.1); Sodium 138 mmol/L (136-145); Total Protein 7.7 g/dL (6.4-8.2)
[2024-05-10 17:49] LABS: Ammonia 11 umol/L (11-32)
[2024-05-15 12:58] LABS: Levetiracetam Keppra 13.4 mcg/mL (6.0-46.0)
[2024-05-17 20:09] LABS: Oxcarbazepine 4.8 mcg/mL (8.0-35.0)
== END 2024-05-10 14:52 | disposition home or self-care (01) ==
LOC: CHSLAB 14:54
PROVIDERS: PCP Family Medicine
DX: G40.909 Epilepsy, unspecified, not intractable, without status epilepticus (principal)
CPT/HCPCS: 36415; 80053; 80177; 80183; 80186; 82140; 85025

== ENCOUNTER 2024-06-01 15:03 | Outpatient (CLI) | payer OTHER, SELFPAY ==
[2024-06-01 15:40] LABS: Phenytoin Dilantin 1 ug/mL (10-20)
== END 2024-06-01 15:04 | disposition home or self-care (01) ==
PROVIDERS: PCP Nurse Practitioner Family; Visit Provider Nurse Practitioner Family
DX: G40.309 Generalized idiopathic epilepsy and epileptic syndromes, not intractable, without status epilepticus (principal)
CPT/HCPCS: 36415; 80185

== ENCOUNTER 2024-11-29 10:23 | Outpatient (CLI) | payer OTHER, SELFPAY ==
[2024-11-29 10:50] LABS: Basophils Absolute Auto 0.05 K/mm3 (0.00-0.10); Basophils Percent Auto 0.9 % (0.0-1.0); Eosinophils Absolute Auto 0.12 K/mm3 (0.02-0.50); Eosinophils Percent Auto 2.3 % (1.0-6.0); Hematocrit 46.6 % (40.0-54.0); Hemoglobin 15.3 g/dL (14.0-18.0); Immature Granulocyte Absolute 0.01 K/mm3 (0.00-0.00); Immature Granulocyte Percent A 0.2 % (0.0-0.0); Lymphocytes Absolute Auto 1.68 K/mm3 (1.10-4.50); Lymphocytes Percent Auto 31.7 % (18.0-42.0); Mean Corpuscular HGB Conc 32.8 g/dL (32-36); Mean Corpuscular Hemoglobin 29.7 pg (27.0-31.0); Mean Corpuscular Volume 90.3 fL (78.0-102.0); Mean Platelet Volume 8.8 fl (8.7-11.0); Monocytes Absolute Auto 0.42 K/mm3 (0.10-0.90); Monocytes Percent Auto 7.9 % (2.0-11.0); Neutrophils Absolute Auto 3.02 K/mm3 (1.70-7.20); Platelet Count Result 191 K/mm3 (150-420); Red Blood Count 5.16 M/mm3 (4.70-6.10); Red Cell Distribution Width 12.4 % (11.6-14.4); White Blood Count 5.3 K/mm3 (4.8-10.8)
--- OUTSIDE RECORDS SUMMARY | 2024-11-29 11:09 | XMS_ITS | Encounter Summary ---
Author Organization [facility] System Address Formerly [facility] [place] [address] Care Team Providers Care Breaker Mechanic Name Role Phone Kale Villalobos MD Primary Care Provider [phone] Dominic Lerma MD Primary Care Provider [phone] None, Provider Primary Care Provider Aaron Clarke DO Primary Care Provider [phone] Encounter Details Date Type Department Care Team (Late st Contact Info) Description 01/27/2019 Abstract [facility] CONVERSION [address] [place] [address] , Generic Conversion, Social History Tobacco Use Types Packs/Day Years Used Date Smoking Tobacco: Never Assessed Sex and Gender Information Value Date Recorded Sex Assigned at Male 09/19/2024 2:39 AM [employer]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 Gender Identity Not on file Sexual Orientation Not on file documented as of this encounter Plan of Treatment Not on file documented as of this encounter Visit Diagnoses Not on filedocumented in this encounter Additional Health Concerns Infection Onset Date Last Indicated Resolved Time COVID-19 Rule Out 08/01/2024 08/01/2024 08/01/2024 3:42 AM CLARK DRIVER COVID-19 Rule Out 10/09/2024 10/09/2024 10/09/2024 6:33 PM CLARK DRIVER documented as of this encounter Care Teams Breaker Mechanic Relationship Specialty Start Date End Date Kale Villalobos MD [address] [place] [id number] PCP - General FAMILY PRACTICE 03/23/19 05/23/23 Dominic Lerma MD [address] [place] [id number] PCP - General INTERNAL MEDICINE 05/24/23 04/08/24 None, MD Demarco PCP - General UNKNOWN PHYSICIAN SPECIALTY 04/09/24 07/07/24 Aaron Godinez DO [address] [place] [address] PCP - General FAMILY PRACTICE 07/08/24 documented as of this encounter
--- OUTSIDE RECORDS SUMMARY | 2024-11-29 11:09 | XMS_ITS | Clinical Summary ---
Author Organization [facility] Address [address] [place] [address] Care Team Providers Care Gi Asst Name Role Phone Aaron Godinez DO Primary Care Provider [phone] Allergies No known active allergies Medications escitalopram (LEXAPRO) 20 MG tablet Take 1 tablet (20 mg total) by mouth daily. 04/18/2024 Active levETIRAcetam (KEPPRA) 1000 MG tablet Take 1 tablet (1,000 mg total) by mouth 2 (two) times daily. 06/25/2024 Active phenytoin ER (DILANTIN KAPSEALS) 100 MG capsule Take 1 capsule (100 mg total) by mouth 2 (two) times daily. 06/01/2024 Active OXcarbazepine (TRILEPTAL) 300 MG tablet Take 1 tablet (300 mg total) by mouth 2 (two) times daily. 60 tablet 08/01/2024 Active levETIRAcetam (KEPPRA) 1000 MG tablet Take 1 tablet (1,000 mg total) by mouth 2 (two) times daily. 60 tablet 09/26/2024 Active Active Problems No known active problems Encounters Date Type Department Care Team Description 10/09/2024 5:44 PM TOOL GRINDER SET UP OPERATOR GEAR - 10/09/2024 8:57 PM [facility] [place] [facility] [address] [place] [address] Madhuri Li DO Seizure Re-evaluation Discharge Disposition: Home or Self Care (Routine Discharge) 10/09/2024 Travel 09/30/2024 5:54 PM TOOL GRINDER SET UP OPERATOR GEAR - 09/30/2024 9:10 PM [facility] [place] [facility] [address] [place] [address] [place] [address] He Lott DO Seizure- Prior History Of Discharge Disposition: Home or Self Care (Routine Discharge) 09/30/2024 Travel 09/26/2024 3:49 AM TOOL GRINDER SET UP OPERATOR GEAR - 09/26/2024 5:58 AM [facility] [place] [facility] [address] [place] [address] [place] [address] Kuldip Hill MD Seizure- Prior History Of Discharge Disposition: Home or Self Care (Routine Discharge) 09/26/2024 Travel 09/19/2024 2:20 AM TOOL GRINDER SET UP OPERATOR GEAR - 09/19/2024 5:31 AM [facility] [place] [facility] [address] [place] [address] [place] [address] Josh Jiménez MD Seizure- Prior History Of Discharge Disposition: Home or Self Care (Routine Discharge) 09/19/2024 Travel from Last 3 Months Family History Medical History Relation Comments COPD Mother Relation Status Comments Mother Social History Tobacco Use Types Packs/Day Years Used Date Smoking Tobacco: Every Day Cigarettes Smokeless Tobacco: Current Chew Tobacco Cessation:Ready to Q uit: Not Asked; Counseling Given: Not Answered Alcohol Use Standard Drinks/Week Comments Yes 0 (1 standard drink = 0.6 oz pur e alcohol) AUDIT-C Answer Date Recorded Frequency of Alcohol Consumption Never 08/07/2019 Average Number of Drinks Not on file 019 Frequency of Binge Drinking Not on file 07/22 Sex and Gender Information Value Date Recorded Sex Assigned at Male 09/19/2024 2:39 AM TOOL GRINDER SET UP OPERATOR GEAR Legal Sex Male 5:50 PM TOOL GRINDER SET UP OPERATOR GEAR Gender Identity Not on file Sexual Orientation Not on file Last Filed Vital Signs Vital Sign Reading Time Taken Comments Blood Pressure 144/76 10/09/2024 8:00 PM TOOL GRINDER SET UP OPERATOR GEAR Pulse 71 10/09/2024 8:30 PM TOOL GRINDER SET UP OPERATOR GEAR Temperature 36.2 C (97.2 F) 10/09/2024 5:47 PM TOOL GRINDER SET UP OPERATOR GEAR Respiratory Rate 22 10/09/2024 8:30 PM TOOL GRINDER SET UP OPERATOR GEAR Oxygen Saturation 98% 10/09/2024 8:30 PM TOOL GRINDER SET UP OPERATOR GEAR Inhaled Oxygen Concentration - - Weight 111.1 kg (245 lb) 10/09/2024 5:47 PM TOOL GRINDER SET UP OPERATOR GEAR Height 177.8 cm (5' 10 ) 10/09/2024 5:47 PM TOOL GRINDER SET UP OPERATOR GEAR Body Mass Index 35.15 10/09/2024 5:47 PM TOOL GRINDER SET UP OPERATOR GEAR Plan of Treatment Health Maintenance Due Date Last Done Comments Annual Physical 2004 Pneumococcal Vaccine: Pediatrics (0 to 5 Years) and At-Risk Patients (6 to 64 Years) (1 of 2 - PCV) 2007 DTaP, Tdap and Td Vaccines (6 - Tdap) 2012 03/24/2007, 10/17/2002, 04/12/2002, Additional history exists HPV Vaccines (1 - Male 3-dose series) 2016 Meningococcal B Vaccine (2 of 2 - Bexsero SCDM 2-dose series) 09/27/2019 03/27/2019 Hepatitis C 2019 Hepatitis B Vaccines (1 of 3 - 19+ 3-dose series) 2020 COVID-19 Vaccine (1 - season) 2024 Meningococcal Vaccine Completed 03/27/2019 RSV Immunizations Under 20 Months Aged Out No longer eligible based on patient's age to complete this topic Procedures Procedure Name Priority Date/Time Associated Diagnosis Comments URINE BACTERIA CULTURE STAT 7:26 PM TOOL GRINDER SET UP OPERATOR GEAR HC URINALYSIS AUTO W/MICRO STAT 10/09/2024 7:26 PM TOOL GRINDER SET UP OPERATOR GEAR ECG 12-LEAD Routine 10/09/2024 6:02 PM TOOL GRINDER SET UP OPERATOR GEAR INFLUENZA A & B STAT 10/09/2024 6:02 PM TOOL GRINDER SET UP OPERATOR GEAR CORONAVIRUS (COVID-19) ANTIGEN STAT 10/09/2024 6:02 PM TOOL GRINDER SET UP OPERATOR GEAR MAGNESIUM STAT 10/09/2024 6:00 PM TOOL GRINDER SET UP OPERATOR GEAR TROPONIN, QUANT STAT 10/09/2024 6:00 PM TOOL GRINDER SET UP OPERATOR GEAR COMPREHENSIVE METABOLIC PANEL STAT 10/09/2024 6:00 PM TOOL GRINDER SET UP OPERATOR GEAR CBC W/DIFF AUTOMATED STAT 10/09/2024 6:00 PM TOOL GRINDER SET UP OPERATOR GEAR LACTIC ACID W REFLEX (SEPSIS) TIMED 09/30/2024 8:21 PM TOOL GRINDER SET UP OPERATOR GEAR DRUG SCREEN RAPID STAT 09/30/2024 7:1 3 PM TOOL GRINDER SET UP OPERATOR GEAR HC URINALYSIS AUTO W/MICRO STAT 09/30/2024 7:13 PM TOOL GRINDER SET UP OPERATOR GEAR VALPROIC ACID STAT 09/30/2024 6:18 PM TOOL GRINDER SET UP OPERATOR GEAR KEPPRA LEVEL STAT 09/30/2024 6:18 PM TOOL GRINDER SET UP OPERATOR GEAR LACTIC ACID W REFLEX (SEPSIS) STAT 09/30/2024 6:18 PM TOOL GRINDER SET UP OPERATOR GEAR COMPREHENSIVE METABOLIC PANEL STAT 09/30/2024 6:18 PM TOOL GRINDER SET UP OPERATOR GEAR CBC W/DIFF AUTOMATED STAT 09/30/2024 6:18 PM TOOL GRINDER SET UP OPERATOR GEAR CT FACIAL BONES WO CON STAT 3:19 AM TOOL GRINDER SET UP OPERATOR GEAR CT CERV SPINE WO CON STAT 09/19/2024 3:19 AM TOOL GRINDER SET UP OPERATOR GEAR CT HEAD WO CON STAT 09/19/2024 3:19 AM TOOL GRINDER SET UP OPERATOR GEAR XR SHOULDER RT MIN 2V STAT 09/19/2024 3:18 AM TOOL GRINDER SET UP OPERATOR GEAR XR CHEST PORTABLE STAT 09/19/2024 3:1 8 AM TOOL GRINDER SET UP OPERATOR GEAR CBC W/DIFF AUTOMATED STAT 09/19/2024 2:49 AM TOOL GRINDER SET UP OPERATOR GEAR COMPREHENSIVE METABOLIC PANEL STAT 09/19/2024 2:49 AM TOOL GRINDER SET UP OPERATOR GEAR TROPONIN, QUANT STAT 09/19/2024 2:49 AM TOOL GRINDER SET UP OPERATOR GEAR MAGNESIUM STAT 09/19/2024 2:49 AM TOOL GRINDER SET UP OPERATOR GEAR TRILEPTAL STAT 09/19/2024 2:49 AM TOOL GRINDER SET UP OPERATOR GEAR PHENYTOIN STAT 09/19/2024 2:49 AM TOOL GRINDER SET UP OPERATOR GEAR ECG 12-LEAD Routine 09/19/2024 2:44 AM TOOL GRINDER SET UP OPERATOR GEAR from Last 3 Months Results * (ABNORMAL) URINALYSIS (10/09/2024 7:26 PM TOOL GRINDER SET UP OPERATOR GEAR) Only the most recent of2 resultswithin the time period is included. COLOR (U) YELLOW 10/09/2024 7:49 PM TOOL GRINDER SET UP OPERATOR GEAR [facility] TRANSPARENCY CLEAR 10/09/2024 7:49 PM TOOL GRINDER SET UP OPERATOR GEAR [facility] SPECIFIC GRAVITY (U) 1.020 1.000 - 1.025 10/09/2024 7:49 PM TOOL GRINDER SET UP OPERATOR GEAR [facility] U PH 6.5 5.0 - 8.0 10/09/2024 7:49 PM TOOL GRINDER SET UP OPERATOR GEAR [facility] LEUKOCYTES (U) NEGATIVE NEGATIVE 10/09/2024 7:49 PM TOOL GRINDER SET UP OPERATOR GEAR [facility] NITRITES NEGATIVE NEGATIVE 10/09/2024 7:49 PM TOOL GRINDER SET UP OPERATOR GEAR [facility] PROTEIN RANDOM (U) NEGATIVE NEGATIVE 10/09/2024 7:49 PM TOOL GRINDER SET UP OPERATOR GEAR [facility] GLUCOSE (U) NEGATIVE NEGATIVE 10/09/2024 7:49 PM TOOL GRINDER SET UP OPERATOR GEAR [facility] KETONES MG/DL (U) NEGATIVE NEGATIVE 10/09/2024 7:49 PM TOOL GRINDER SET UP OPERATOR GEAR [facility] UROBILINOGEN 0.2 <1.0 EU/DL 10/09/2024 7:49 PM [facility] BILIRUBIN (U) NEGATIVE NEGATIVE 10/09/2024 7:49 PM TOOL GRINDER SET UP OPERATOR GEAR [facility] BLOOD (U) TRACE(A) NEGATIVE 10/09/2024 7:49 PM TOOL GRINDER SET UP OPERATOR GEAR [facility] WBC/HPF 0-5 0 - 5 /HPF 10/09/2024 7:49 PM TOOL GRINDER SET UP OPERATOR GEAR [facility] RBC/HPF 0-5 0 - 5 /HPF 10/09/2024 7:49 PM TOOL GRINDER SET UP OPERATOR GEAR [facility] EPI/LPF RARE /LPF 10/09/2024 7:49 PM TOOL GRINDER SET UP OPERATOR GEAR [facility] BACTERIA (U) TRACE /HPF 10/09/2024 7:49 PM TOOL GRINDER SET UP OPERATOR GEAR [facility] MUCUS PRESENT 10/09/2024 7:49 PM TOOL GRINDER SET UP OPERATOR GEAR [facility] URINE SPECIMEN OBTAINED BY CLEAN CATCH PROCEDURE / Unknown 10/09/2024 7:26 PM TOOL GRINDER SET UP OPERATOR GEAR us Madhuri Dennis DO URINE ORDERABLES Final R esult Performing Organization Address City/[facility]/ZIP Co de Phone Number [address] [address], [place] [phone] * CULTURE URINE (10/09/2024 7:26 PM TOOL GRINDER SET UP OPERATOR GEAR) SPEC DESCRIPTION URINE CLEAN CATCH 10/09/2024 7:28 PM TOOL GRINDER SET UP OPERATOR GEAR [facility] SPECIAL REQUESTS NO SPECIAL REQUEST 10/09/2024 7:28 PM TOOL GRINDER SET UP OPERATOR GEAR [facility] CULTURE RESULT FEW CONTAMINANTS 09/23 10:39 AM TOOL GRINDER SET UP OPERATOR GEAR [facility] URINE SPECIMEN OBTAINED BY CLEAN CATCH PROCEDURE / Unknown 10/09/2024 7:26 PM TOOL GRINDER SET UP OPERATOR GEAR 10/09/2024 7:31 PM TOOL GRINDER SET UP OPERATOR GEAR us Madhuri Dennis DO MICROBIOLOGY - GENERAL O RDERABLES Final Result [facility] [address] [place] [address], [place] [phone] [id number] [facility] [address] [place] [id number], [place] [phone] * ECG 12 lead (10/09/2024 6:02 PM TOOL GRINDER SET UP OPERATOR GEAR) Only the most recent of2 resultswithin the time period is included. 10/09/2024 6:02 PM TOOL GRINDER SET UP OPERATOR GEAR Narrative [facility] - 10/10/2024 8:13 AM TOOL GRINDER SET UP OPERATOR GEAR [address] [place] [address] Test Date: 2024-10-09 Pat Name: STEPH ESPINAL Department: 3 Room: EXAM 808 Gender: Male Manager Analytical: : 2000 Requested By: MADHURI DENNIS Order Number: [id number] Reading : Sharif Webb Measurements Intervals [place] Rate: 90 P: 18 AR: 155 QRS: 76 QRSD: 90 T: 5 QT: 341 QTc: 418 Interpretive Statements SINUS RHYTHM GRINDER SET UP OPERATOR GEAR Procedure Note Sharif Webb MD - 10/10/[address] [place] [address] Test Date: 2024-10-09 Pat Name: STEPH ESPINAL Department: 3 Room: EXAM 808 Gender: Male Manager Analytical: : 2000 Requested By: MADHURI DENNIS Order Number: [id number] Reading SERGE Webb Measurements Intervals [place] Rate: 90 P: 18 AR: 155 QRS: 76 QRSD: 90 T: 5 QT: 341 QTc: 418 Interpretive Statements SINUS RHYTHM GRINDER SET UP OPERATOR GEAR us Madhuri Dennis DO ECG ORDERABLES Final Re sult [facility] * CORONAVIRUS (COVID-19) ANTIGEN (10/09/2024 6:02 PM TOOL GRINDER SET UP OPERATOR GEAR) CORONAVIRUS ANTIGEN IA NEGATIVE NEGATIVE 10/09/2024 6:33 PM TOOL GRINDER SET UP OPERATOR GEAR [facility] Comment: NEGATIVE RESULTS DO NOT RULE OUT SARS-COV-2 INFECTION AND SHOULD NOT BE USED THE SOLE BASIS FOR TREATMENT OR PATIENT MANAGEMENT DECISIONS, INCLUDING INFECTION CONTROL DECISIONS. NEGATIVE RESULTS SHOULD BE CONSIDERED IN THE CONTEXT OF A PATIENT'S RECENT EXPOSURES, HISTORY AND THE PRESENCE OF CLINICAL SIGNS AND SYMPTOMS CONSISTENT WITH COVID 19. THIS TEST HAS BEEN AUTHORIZED BY THE FDA UNDER AN EMERGENCY USE AUTHORIZATION (EUA) FOR USE BY AUTHORIZED LABORATORIES. SPECIMEN TYPE NASAL 10/09/2024 6:03 PM TOOL GRINDER SET UP OPERATOR GEAR [facility] NASAL NASAL STRUCTURE / Unknown 10/09/2024 6:02 PM TOOL GRINDER SET UP OPERATOR GEAR Madhuri Mireya Oliviercy DO MICROBIOLOGY - GENERAL O RDERABLES Final Result Performing Organization Address [facility] de Phone Number [facility] [address] [place] [address], * INFLUENZA A & B (10/09/2024 6:02 PM TOOL GRINDER SET UP OPERATOR GEAR) SPECIMEN TYPE (INFLUENZA) NASAL 10/09/2024 6:03 PM TOOL GRINDER SET UP OPERATOR GEAR [facility] INFLUENZA A NEGATIVE NEGATIVE 10/09/2024 6:33 PM TOOL GRINDER SET UP OPERATOR GEAR [facility] INFLUENZA B NEGATIVE NEGATIVE 10/09/2024 6:33 PM TOOL GRINDER SET UP OPERATOR GEAR [facility] Comment: A NEGATIVE RESULT DOES NOT EXCLUDE INFLUENZA VIRUS INFECTION. IF INFLUENZA IS CIRCULATING IN YOUR COMMUNITY, A DIAGNOSIS OF INFLUENZA SHOULD BE CONSIDERED BASED ON A PATIENT'S CLINICAL PRESENTATION AND EMPIRIC ANTIVIRAL TREATMENT SHOULD BE CONSIDERED IF INDICATED. NASAL STRUCTURE / Unknown 10/09/2024 6:02 PM TOOL GRINDER SET UP OPERATOR GEAR Madhuri Mireya Dennis DO MICROBIOLOGY - GENERAL O RDERABLES Final Result Performing Organization Address [facility] Co de Phone Number [facility] [address] [place] [phone], * (ABNORMAL) COMPREHENSIVE METABOLIC PANEL (10/09/2024 6:00 PM TOOL GRINDER SET UP OPERATOR GEAR) Only the most recent of3 resultswithin the time period is included. SODIUM S/P/B 140 136 - 145 MMOL/L 10/09/2024 6:24 PM TOOL GRINDER SET UP OPERATOR GEAR [facility] POTASSIUM S/P/B 3.8 3.5 - 5.1 MMOL/L 10/09/2024 6:24 PM [facility] CHLORIDE S/P/B 102 98 - 107 MMOL/L 10/09/2024 6:24 PM [facility] CO2 28.7 21.0 - 32.0 MMOL/L 10/09/2024 6:24 PM [facility] GLUCOSE 72 70 - 99 MG/DL 10/09/2024 6:24 PM [facility] Comment: FASTING GLUCOSE 100 TO 125 MG/DL IS CONSISTENT WITH IMPAIRED FASTING GLUCOSE. FASTING GLUCOSE >125 MG/DL IS CONSISTENT WITH DIABETES. RANDOM GLUCOSE >200 MG/DL WITH HYPERGLYCEMIC SYMPTOMS IS CONSISTENT WITH DIABETES. PER ADA GUIDELINES BUN 6 6 - 24 MG/DL 10/09/2024 6:24 PM [facility] CREATININE S/P/B 0.96 0.70 - 1.30 MG/DL 10/09/2024 6:24 PM [facility] CALCIUM S/P/B 9.5 8.4 - 10.5 MG/DL 10/09/2024 6:24 PM [facility] BILIRUBIN TOTAL S/P/B 0.3 0.2 - 1.0 MG/DL 10/09/2024 6:24 PM [facility] Comment: THIS ASSAY IS NOT RECOMMENDED FOR PATIENTS UNDERGOING TREATMENT WITH ELTROMBOPAG DUE TO THE POTENTIAL FOR FALSELY ELEVATED RESULTS. ALKALINE PHOSPHATASE S/P/B 120(H) 45 - 115 U/L 10/09/2024 6:24 PM [facility] AST 34 15 - 37 U/L 10/09/2024 6:24 PM [facility] ALT 93(H) 16 - 63 U/L 10/09/2024 6:24 PM [facility] TOTAL PROTEIN S/P/B 8.1 6.4 - 8.2 G/DL 10/09/2024 6:24 PM [facility] ALBUMIN S/P/B 4.3 3.4 - 5.0 G/DL 10/09/2024 6:24 PM [facility] ANION GAP 9.3 5.0 - 15.0 MMOL/L 10/09/2024 6:24 PM TOOL GRINDER SET UP OPERATOR GEAR [facility] OSMOLALITY (CALC) 286 MOSM/KG 025 6:24 PM TOOL GRINDER SET UP OPERATOR GEAR [facility] Comment:REFERENCE RANGE NOT ESTABLISHED GFR ESTIMATE >90 >89 ML/MIN/1. 73 M2 10/09/2024 6:24 PM TOOL GRINDER SET UP OPERATOR GEAR [facility] GFR NOTES GFR REFERENCE S: 10/09/2024 6:24 PM TOOL GRINDER SET UP OPERATOR GEAR [facility] Comment: THE ESTIMATED GFR IS CALCULATED USING THE 2020 CKD-EPI EQUATION. THE FOLLOWING CATEGORIES FOR GRADING RENAL FUNCTION ARE RECOMMENDED BY THE INTERNATIONAL SOCIETY OF NEPHROLOGY (KDIGO 2012 CLINICAL PRACTICE GUIDELINE). G1,NORMAL OR HIGH: >89 ml/min/1.73 m2 G2,MILDLY DECREASED: 60-89 ml/min/1.73 m2 G3A,MILDLY TO MODERATELY DECREASED: 45-59 ml/min/1.73 m2 G3B,MODERATELY TO SEVERELY DECREASED: 30-44 ml/min/1.73 m2 G4,SEVERELY DECREASED: 15-29 ml/min/1.73 m2 G5,KIDNEY FAILURE: <15 ml/min/1.73 m2 10/09/2024 6:00 PM TOOL GRINDER SET UP OPERATOR GEAR us Madhuri Dennis DO LABORATORY Final Re sult [facility] [place] [address], * CBC W/DIFF AUTOMATED (10/09/2024 6:00 PM TOOL GRINDER SET UP OPERATOR GEAR) Only the most recent of3 resultswithin the time period is included. WBC 7.44 4.00 - 10.80 x10'3/uL 10/09/2024 6:11 PM TOOL GRINDER SET UP OPERATOR GEAR [facility] RBC 5.58 4.50 - 6.10 x10'6/uL 10/09/2024 6:11 PM TOOL GRINDER SET UP OPERATOR GEAR [facility] HGB 16.7 13.0 - 18.0 G/DL 10/09/2024 6:11 PM TOOL GRINDER SET UP OPERATOR GEAR [facility] HCT 50.3 37.0 - 52.0 % 10/09/2024 6:11 PM TOOL GRINDER SET UP OPERATOR GEAR [facility] MCV 90.1 78.0 - 100.0 FL 10/09/2024 6:11 PM [facility] MCH 29.9 27.0 - 31.0 PG 10/09/2024 6:11 PM [facility] MCHC 33.2 33.0 - 36.0 G/DL 10/09/2024 6:11 PM [facility] RDW 12.8 11.5 - 14.5 % 10/09/2024 6:11 PM [facility] PLT 222 150 - 350 x10'3/uL 10/09/2024 6:11 PM [facility] MPV 9.0 7.4 - 10.4 FL 10/09/2024 6:11 PM [facility] CBC COMMENT NORMAL REFERENCE RANGE NOT ESTABLISHED FOR THE PROPORTIONAL LEUKOCYTE DIFFERENTIAL. 10/09/2024 6:11 PM [facility] NEUTROPHILS % 70.9 % 10/09/2024 6:11 PM [facility] LYMPHOCYTES % 21.4 % 10/09/2024 6:11 PM [facility] MONOCYTES % 4.8 % 10/09/2024 6:11 PM [facility] EOSINOPHILS % 2.0 % 10/09/2024 6:11 PM [facility] BASOPHILS % 0.5 % 10/09/2024 6:11 PM [facility] IMMATURE GRANS % 0.4 % 10/09/19 25 6:11 PM [facility] NRBC % 0.0 % 10/09/2024 6:11 PM [facility] ABS. NEUTROPHILS 5.27 1.60 - 8.30 x10'3/uL 10/09/2024 6:11 PM [facility] ABS. LYMPHOCYTES 1.59 0.80 - 4.70 x10'3/uL 10/09/2024 6:11 PM TOOL GRINDER SET UP OPERATOR GEAR [facility] ABS. MONOCYTES 0.36 0.00 - 1.50 x10'3/uL 10/09/2024 6:11 PM TOOL GRINDER SET UP OPERATOR GEAR [facility] ABS. EOSINOPHILS 0.15 0.00 - 0.40 x10'3/uL 10/09/2024 6:11 PM TOOL GRINDER SET UP OPERATOR GEAR [facility] ABS. BASOPHILS 0.04 0.00 - 0.20 x10'3/uL 10/09/2024 6:11 PM TOOL GRINDER SET UP OPERATOR GEAR [facility] ABS. IMMATURE GRANULOCYTES 0.03 0.00 - 0.03 x10'3/uL 10/09/2024 6:11 PM TOOL GRINDER SET UP OPERATOR GEAR [facility] ABS. NUCLEATED RBC'S 0.00 0.00 - 0.01 x10'3/uL 10/09/2024 6:11 PM TOOL GRINDER SET UP OPERATOR GEAR [facility] 10/09/2024 6:00 PM TOOL GRINDER SET UP OPERATOR GEAR [email or web address] Final Re sult Performing Organization Address City/[facility]/ZIP Co de Phone Number [address] [address], * TROPONIN, QUANT (10/09/2024 6:00 PM TOOL GRINDER SET UP OPERATOR GEAR) Only the most recent of2 resultswithin the time period is included. TROPONIN I HIGH SENSITIVITY 5 0 - 76 ng/L 10/09/2024 6:24 PM TOOL GRINDER SET UP OPERATOR GEAR [facility] 10/09/2024 6:00 PM TOOL GRINDER SET UP OPERATOR GEAR [facility] Final Re sult Performing Organization Address City/[facility]/ZIP Co de Phone Number [facility] [address] [place] [address], * MAGNESIUM (10/09/2024 6:00 PM TOOL GRINDER SET UP OPERATOR GEAR) Only the most recent of2 resultswithin the time period is included. MAGNESIUM 2.2 1.8 - 2.4 MG/DL 10/09/2024 6:24 PM TOOL GRINDER SET UP OPERATOR GEAR [facility] 10/09/2024 6:00 PM TOOL GRINDER SET UP OPERATOR GEAR us Madhuri Oliviercy DO LABORATORY Final Re sult Performing Organization Address [facility]/ZIP Co de Phone Number [facility] [address] [place] [address], [place] [phone] * LACTIC ACID W REFLEX (SEPSIS) (09/30/2024 8:21 PM TOOL GRINDER SET UP OPERATOR GEAR) Only the most recent of2 resultswithin the time period is included. LACTIC ACID VENOUS 1.5 0.4 - 2.0 MMOL/L 09/30/2024 8:45 PM TOOL GRINDER SET UP OPERATOR GEAR [facility] 09/30/2024 8:21 PM TOOL GRINDER SET UP OPERATOR GEAR us He Lott DO LABORATORY Final Result Performing Organization Address [facility] Co de Phone Number [facility] [address] [place] [address], [place] [phone] * (ABNORMAL) DRUG SCREEN RAPID (09/30/2024 7:13 PM TOOL GRINDER SET UP OPERATOR GEAR) CANNABINOIDS SCREEN (U) POSITIVE(A) NEGATIVE 09/30/2024 7:42 PM TOOL GRINDER SET UP OPERATOR GEAR [facility] PHENCYCLIDINE PCP (U) NEGATIVE NEGATIVE 09/30/2024 7:42 PM TOOL GRINDER SET UP OPERATOR GEAR [facility] COCAINE METABOLITES (U) NEGATIVE NEGATIVE 09/30/2024 7:42 PM TOOL GRINDER SET UP OPERATOR GEAR [facility] METHAMPHETAMINE SCREEN (U) NEGATIVE NEGATIVE 09/30/2024 7:42 PM TOOL GRINDER SET UP OPERATOR GEAR [facility] OPIATE SCREEN (U) NEGATIVE NEGATIVE 025 7:42 PM TOOL GRINDER SET UP OPERATOR GEAR [facility] AMPHETAMINE SCREEN (U) NEGATIVE NEGATIVE 09/30/2024 7:42 PM TOOL GRINDER SET UP OPERATOR GEAR [facility] BENZODIAZEPINES SCREEN (U) NEGATIVE NEGATIVE 09/30/2024 7:42 PM TOOL GRINDER SET UP OPERATOR GEAR [facility] TRICYCLIC ANTIDEPRESSANT SCREEN (U) NEGATIVE NEGATIVE 09/30/2024 7:42 PM TOOL GRINDER SET UP OPERATOR GEAR [facility] METHADONE (U) NEGATIVE NEGATIVE 09/30/2024 7:42 PM TOOL GRINDER SET UP OPERATOR GEAR [facility] BARBITURATES SCREEN (U) POSITIVE(A) NEGATIVE 09/30/2024 7:42 PM TOOL GRINDER SET UP OPERATOR GEAR [facility] OXYCODONE SCREEN (U) NEGATIVE NEGATIVE 09/30/2024 7:42 PM TOOL GRINDER SET UP OPERATOR GEAR [facility] URINE TOX COMMENT THIS TEST METHODOLOGY IS DESIGNED AND OFFERED A RAPID TURNAROUND, QUALITATIVE SCREENING PROCEDURE TO AID IN THE IMMEDIATE MEDICAL ASSESSMENT OF PATIENTS SUSPECTED OF SUBSTANCE ABUSE. 09/30/2024 7:20 PM TOOL GRINDER SET UP OPERATOR GEAR [facility] Comment: CLINICAL CONSIDERATION AND PROFESSIONAL JUDGMENT MUST BE APPLIED TO ANY DRUG OF ABUSE TEST RESULT, BOTH POSITIVE AND NEGATIVE. CONFIRMATORY QUANTITATIVE RESULTS ARE AVAILABLE THROUGH OUR [facility]FER[facility]. URINE SPECIMEN / Unknown 09/30/2024 7:13 PM TOOL GRINDER SET UP OPERATOR GEAR us He Lott DO URINE ORDERABLES Final Result [facility] [address] [place] [address], * (ABNORMAL) KEPPRA LEVEL (09/30/2024 6:18 PM TOOL GRINDER SET UP OPERATOR GEAR) KEPPRA <2.0(L) 6.0 - 46.0 mcg/mL 10/03/2024 11:52 PM TOOL GRINDER SET UP OPERATOR GEAR [facility]LE[facility] Comment: Brivaracetam (Briviact(R), Rikelta(R)) exhibits significant cross-reactivity in the Levetiracetam (Keppra(R), Spritam(R)) immunoassay. If Brivaracetam has been prescribed, order test code 40908 Levetiracetam by LCMSMS. Test Performed by [facility], [facility], [address] [place], [place] Tony Mckenzie M.D., Ph.D., Director of Laboratories , CLIA [id number] 09/30/2024 6:18 PM TOOL GRINDER SET UP OPERATOR GE[facility] LABORATORY Final Result [facility] [address] [place] [address], [place] [phone] * (ABNORMAL) VALPROIC ACID (09/30/2024 6:18 PM TOOL GRINDER SET UP OPERATOR GEAR) VALPROIC ACID 5.0(L) 50.0 - 100.00 MCG/ML 09/30/2024 7:00 PM TOOL GRINDER SET UP OPERATOR GEAR [facility] 09/30/2024 6:18 PM TOOL GRINDER SET UP OPERATOR GEAR [place] [facility] Final Result Performing Organization Address [facility]/ZIP Co de Phone Number [facility] [address] [place] [id number], [place] [phone] * CT HEAD WO CON (09/19/2024 3:19 AM TOOL GRINDER SET UP OPERATOR GEAR) Anatomical Region Laterality Modality Head Computed Tomogra phy 09/19/2024 3:2 1 AM TOOL GRINDER SET UP OPERATOR GEAR Impressions 09/19/2024 3:25 AM TOOL GRINDER SET UP OPERATOR GEAR IMPRESSION: 1. No CT evidence of an acute intracranial abnormality. 2. No maxillofacial bone fracture. 3. No cervical spine fracture. Referred By: Interpreted By: Rosas Shin MD, 09/19/2024 3:21 AM Narrative 09/19/2024 3:25 AM TOOL GRINDER SET UP OPERATOR GEAR [address] [place] [address] EXAMINATION: CT HEAD WO CON, CT FACIAL BONES WO CON, CT CERV SPINE WO CON, 09/19/2024 3:21 AM TECHNIQUE: Computed tomographic images of the head, maxillofacial bones and cervical spine were obtained without intravenous contrast. Additional coronal and sagittal reformatted images were generated. A dose lowering technique was used for this procedure, which may include, but is not limited to, dose reduction technique, automated exposure control, the use of iterative reconstruction, and ALARA (As Low As Reasonably Achievable) / Image Gently techniques. HISTORY: Seizure, fall, neck pain. COMPARISON: CT head 08/29/2024 FINDINGS: CT HEAD: There is no acute intracranial hemorrhage. There is no extra-axial fluid collection. Preserved monaco-white matter differentiation. The ventricles are normal in size. The basal cisterns appear normal. Orbital contents appear normal. Paranasal sinuses and mastoid air cells are well-aerated. No acute fracture nor destructive process of the visualized osseous structures. CT MAXILLOFACIAL BONES: The orbital roof and floor intact bilaterally. The lamina papyracea are intact. The zygomas are intact. The medial moderate maxillary sinus buttresses are intact. Nasal bones and nasal septum are intact. The mandible is intact. CT CERVICAL SPINE: The cervical vertebral bodies and facets are well aligned. The cervical vertebral body heights are preserved. There is no acute fracture nor destructive process of the visualized osseous structures. No abnormal prevertebral or paraspinal soft tissue swelling. Procedure Note Rosas Shin MD - 09/19/2024 [place] [address] [facility] [place] [address] EXAMINATION: CT HEAD WO CON, CT FACIAL BONES WO CON, CT CERV SPINE WO CON,09/19/2024 3:21 AM TECHNIQUE: Computed tomographic images of the head, maxillofacial bonesand cervical spine were obtained without intravenous contrast. Additionalcoronal and sagittal reformatted images were generated. A dose loweringtechnique was used for this procedure, which may include, but is notlimited to, dose reduction technique, automated exposure control, the useof iterative reconstruction, and ALARA (As Low As Reasonably Achievable) /Image Gently techniques. HISTORY: Seizure, fall, neck pain. COMPARISON: CT head 08/29/2024 FINDINGS: CT HEAD: There is no acute intracranial hemorrhage. There is noextra-axial fluid collection. Preserved monaco-white matterdifferentiation. The ventricles are normal in size. The basal cisternsappear normal. Orbital contents appear normal. Paranasal sinuses andmastoid air cells are well-aerated. No acute fracture nor destructiveprocess of the visualized osseous structures. CT MAXILLOFACIAL BONES: The orbital roof and floor intact bilaterally.The lamina papyracea are intact. The zygomas are intact. The medialmoderate maxillary sinus buttresses are intact. Nasal bones and nasalseptum are intact. The mandible is intact. CT CERVICAL SPINE: The cervical vertebral bodies and facets are wellaligned. The cervical vertebral body heights are preserved. There is noacute fracture nor destructive process of the visualized osseousstructures. No abnormal prevertebral or paraspinal soft tissueswelling. IMPRESSION: 1. No CT evidence of an acute intracranial abnormality. 2. No maxillofacial bone fracture. 3. No cervical spine fracture. Referred By: Interpreted By: Rosas Shin MD, 09/19/2024 3:21 AM us Josh Jiménez MD CT Final Res ult * CT FACIAL BONES WO CON (09/19/2024 3:19 AM TOOL GRINDER SET UP OPERATOR GEAR) Anatomical Region Laterality Modality Facial Computed Tomogra phy 09/19/2024 3:21 AM TOOL GRINDER SET UP OPERATOR GEAR Impressions 09/19/2024 3:25 AM TOOL GRINDER SET UP OPERATOR GEAR IMPRESSION: 1. No CT evidence of an acute intracranial abnormality. 2. No maxillofacial bone fracture. 3. No cervical spine fracture. Referred By: Interpreted By: Rosas Shin MD, 09/19/2024 3:21 AM Narrative 09/19/2024 3:25 AM TOOL GRINDER SET UP OPERATOR GEAR [address] [place] [address] EXAMINATION: CT HEAD WO CON, CT FACIAL BONES WO CON, CT CERV SPINE WO CON, 09/19/2024 3:21 AM TECHNIQUE: Computed tomographic images of the head, maxillofacial bones and cervical spine were obtained without intravenous contrast. Additional coronal and sagittal reformatted images were generated. A dose lowering technique was used for this procedure, which may include, but is not limited to, dose reduction technique, automated exposure control, the use of iterative reconstruction, and ALARA (As Low As Reasonably Achievable) / Image Gently techniques. HISTORY: Seizure, fall, neck pain. COMPARISON: CT head 08/29/2024 FINDINGS: CT HEAD: There is no acute intracranial hemorrhage. There is no extra-axial fluid collection. Preserved monaco-white matter differentiation. The ventricles are normal in size. The basal cisterns appear normal. Orbital contents appear normal. Paranasal sinuses and mastoid air cells are well-aerated. No acute fracture nor destructive process of the visualized osseous structures. CT MAXILLOFACIAL BONES: The orbital roof and floor intact bilaterally. The lamina papyracea are intact. The zygomas are intact. The medial moderate maxillary sinus buttresses are intact. Nasal bones and nasal septum are intact. The mandible is intact. CT CERVICAL SPINE: The cervical vertebral bodies and facets are well aligned. The cervical vertebral body heights are preserved. There is no acute fracture nor destructive process of the visualized osseous structures. No abnormal prevertebral or paraspinal soft tissue swelling. Procedure Note Rosas Shin MD - 09/19/2024 [place] [id number] [facility] [place] [address] EXAMINATION: CT HEAD WO CON, CT FACIAL BONES WO CON, CT CERV SPINE WO CON,09/19/2024 3:21 AM TECHNIQUE: Computed tomographic images of the head, maxillofacial bonesand cervical spine were obtained without intravenous contrast. Additionalcoronal and sagittal reformatted images were generated. A dose loweringtechnique was used for this procedure, which may include, but is notlimited to, dose reduction technique, automated exposure control, the useof iterative reconstruction, and ALARA (As Low As Reasonably Achievable) /Image Gently techniques. HISTORY: Seizure, fall, neck pain. COMPARISON: CT head 08/29/2024 FINDINGS: CT HEAD: There is no acute intracranial hemorrhage. There is noextra-axial fluid collection. Preserved monaco-white matterdifferentiation. The ventricles are normal in size. The basal cisternsappear normal. Orbital contents appear normal. Paranasal sinuses andmastoid air cells are well-aerated. No acute fracture nor destructiveprocess of the visualized osseous structures. CT MAXILLOFACIAL BONES: The orbital roof and floor intact bilaterally.The lamina papyracea are intact. The zygomas are intact. The medialmoderate maxillary sinus buttresses are intact. Nasal bones and nasalseptum are intact. The mandible is intact. CT CERVICAL SPINE: The cervical vertebral bodies and facets are wellaligned. The cervical vertebral body heights are preserved. There is noacute fracture nor destructive process of the visualized osseousstructures. No abnormal prevertebral or paraspinal soft tissueswelling. IMPRESSION: 1. No CT evidence of an acute intracranial abnormality. 2. No maxillofacial bone fracture. 3. No cervical spine fracture. Referred By: Interpreted By: Rosas Shin MD, 09/19/2024 3:21 AM Josh Jiménez MD CT Final Res ult * CT CERV SPINE WO CON (09/19/2024 3:19 AM TOOL GRINDER SET UP OPERATOR GEAR) Anatomical Region Laterality Modality Spine Computed Tomogra phy 09/19/2024 3:21 AM TOOL GRINDER SET UP OPERATOR GEAR Impressions 09/19/2024 3:25 AM TOOL GRINDER SET UP OPERATOR GEAR IMPRESSION: 1. No CT evidence of an acute intracranial abnormality. 2. No maxillofacial bone fracture. 3. No cervical spine fracture. Referred By: Interpreted By: Rosas Shin MD, 09/19/2024 3:21 AM Narrative 09/19/2024 3:25 AM TOOL GRINDER SET UP OPERATOR GEAR [address] [place] [address] EXAMINATION: CT HEAD WO CON, CT FACIAL BONES WO CON, CT CERV SPINE WO CON, 09/19/2024 3:21 AM TECHNIQUE: Computed tomographic images of the head, maxillofacial bones and cervical spine were obtained without intravenous contrast. Additional coronal and sagittal reformatted images were generated. A dose lowering technique was used for this procedure, which may include, but is not limited to, dose reduction technique, automated exposure control, the use of iterative reconstruction, and ALARA (As Low As Reasonably Achievable) / Image Gently techniques. HISTORY: Seizure, fall, neck pain. COMPARISON: CT head 08/29/2024 FINDINGS: CT HEAD: There is no acute intracranial hemorrhage. There is no extra-axial fluid collection. Preserved monaco-white matter differentiation. The ventricles are normal in size. The basal cisterns appear normal. Orbital contents appear normal. Paranasal sinuses and mastoid air cells are well-aerated. No acute fracture nor destructive process of the visualized osseous structures. CT MAXILLOFACIAL BONES: The orbital roof and floor intact bilaterally. The lamina papyracea are intact. The zygomas are intact. The medial moderate maxillary sinus buttresses are intact. Nasal bones and nasal septum are intact. The mandible is intact. CT CERVICAL SPINE: The cervical vertebral bodies and facets are well aligned. The cervical vertebral body heights are preserved. There is no acute fracture nor destructive process of the visualized osseous structures. No abnormal prevertebral or paraspinal soft tissue swelling. Procedure Note Rosas Shin MD - 09/19/2024 [place] [id number] [facility] [place] [address] EXAMINATION: CT HEAD WO CON, CT FACIAL BONES WO CON, CT CERV SPINE WO CON,09/19/2024 3:21 AM TECHNIQUE: Computed tomographic images of the head, maxillofacial bonesand cervical spine were obtained without intravenous contrast. Additionalcoronal and sagittal reformatted images were generated. A dose loweringtechnique was used for this procedure, which may include, but is notlimited to, dose reduction technique, automated exposure control, the useof iterative reconstruction, and ALARA (As Low As Reasonably Achievable) /Image Gently techniques. HISTORY: Seizure, fall, neck pain. COMPARISON: CT head 08/29/2024 FINDINGS: CT HEAD: There is no acute intracranial hemorrhage. There is noextra-axial fluid collection. Preserved monaco-white matterdifferentiation. The ventricles are normal in size. The basal cisternsappear normal. Orbital contents appear normal. Paranasal sinuses andmastoid air cells are well-aerated. No acute fracture nor destructiveprocess of the visualized osseous structures. CT MAXILLOFACIAL BONES: The orbital roof and floor intact bilaterally.The lamina papyracea are intact. The zygomas are intact. The medialmoderate maxillary sinus buttresses are intact. Nasal bones and nasalseptum are intact. The mandible is intact. CT CERVICAL SPINE: The cervical vertebral bodies and facets are wellaligned. The cervical vertebral body heights are preserved. There is noacute fracture nor destructive process of the visualized osseousstructures. No abnormal prevertebral or paraspinal soft tissueswelling. IMPRESSION: 1. No CT evidence of an acute intracranial abnormality. 2. No maxillofacial bone fracture. 3. No cervical spine fracture. Referred By: Interpreted By: Rosas Shin MD, 09/19/2024 3:21 AM Josh Jiménez MD CT Final Res ult * XR SHOULDER RT MIN 2V (09/19/2024 3:18 AM TOOL GRINDER SET UP OPERATOR GEAR) Anatomical Region Laterality Modality Shoulder Radiographic Kayla ging 09/19/2024 3:23 AM TOOL GRINDER SET UP OPERATOR GEAR Impressions 09/19/2024 3:24 AM TOOL GRINDER SET UP OPERATOR GEAR IMPRESSION: 1. No acute osseous abnormalities. Referred By: Interpreted By: Juan Manuel Green MD, 09/19/2024 3:23 AM Narrative 09/19/2024 3:24 AM TOOL GRINDER SET UP OPERATOR GEAR [address] [place] [address] Examination: 2 or more views right shoulder Exam date/time: 09/19/2024 3:18 AM Reason For Exam: fall; seizure Right shoulder pain Comparison: Right shoulder radiographs 09/08/2024 Technique: AP internal and external rotation with axillary views of the right shoulder obtained Findings: The glenohumeral relationship is preserved. No acute fracture or dislocation. No destructive osseous lesions. No radiopaque foreign bodies. Visualized right upper lung clear. Multiple curvilinear densities overlying the shoulder on axillary view and are presumed external to the patient. Procedure Note Juan Manuel Green MD - 09/19/[address] [place] [address] Examination: 2 or more views right shoulder Exam date/time: 09/19/2024 3:18 AM Reason For Exam: fall; seizure Right shoulder pain Comparison: Right shoulder radiographs 09/08/2024 Technique: AP internal and external rotation with axillary views of theright shoulder obtained Findings: The glenohumeral relationship is preserved. No acute fractureor dislocation. No destructive osseous lesions. No radiopaque foreignbodies. Visualized right upper lung clear. Multiple curvilineardensities overlying the shoulder on axillary view and are presumedexternal to the patient. IMPRESSION: 1. No acute osseous abnormalities. Referred By: Interpreted By: Juan Manuel Green MD, 09/19/2024 3:23 AM us Josh Jiménez MD GENERAL IMAGING Final Res ult * XR CHEST PORTABLE (09/19/2024 3:18 AM TOOL GRINDER SET UP OPERATOR GEAR) Anatomical Region Laterality Modality Chest Radiographic Kayla ging 09/19/2024 3:22 AM TOOL GRINDER SET UP OPERATOR GEAR Impressions 09/19/2024 3:23 AM TOOL GRINDER SET UP OPERATOR GEAR IMPRESSION: ======== 1. Borderline prominent vascularity may be secondary to positioning. No convincing acute cardiopulmonary findings within limitations of exam. Referred By: Interpreted By: Juan Manuel Green MD, 09/19/2024 3:22 AM Narrative 09/19/2024 3:23 AM TOOL GRINDER SET UP OPERATOR GEAR [address] [place] [address] Examination: Chest x-ray 1 view Exam Date/Time: 09/19/2024 3:18 AM Reason For Exam: seizure Seizure, fall Comparison: Chest radiograph 04/15/2024 Technique: Single AP view of the chest was obtained. Findings: Apical lordotic positioning. Heart size prominent and similar to prior study. No large effusion. No pneumothorax. No consolidation. Borderline prominent pulmonary vasculature. No convincing infiltrates. ======== Procedure Note Juan Manuel Green MD - 09/19/2024 [place] [id number] [facility] [place] [address] Examination: Chest x-ray 1 view Exam Date/Time: 09/19/2024 3:18 AM Reason For Exam: seizure Seizure, fall Comparison: Chest radiograph 04/15/2024 Technique: Single AP view of the chest was obtained. Findings: Apical lordotic positioning. Heart size prominent and similarto prior study. No large effusion. No pneumothorax. No consolidation.Borderline prominent pulmonary vasculature. No convincing infiltrates. ======== IMPRESSION: ======== 1. Borderline prominent vascularity may be secondary to positioning. Noconvincing acute cardiopulmonary findings within limitations of exam. Referred By: Interpreted By: Juan Manuel Green MD, 09/19/2024 3:22 AM us Josh Jiménez MD GENERAL IMAGING Final Res ult * (ABNORMAL) TRILEPTAL (09/19/2024 2:49 AM TOOL GRINDER SET UP OPERATOR GEAR) TRILEPTAL <1.0(L) 8.0 - 35.0 mcg/mL 09/22/2024 5:20 PM TOOL GRINDER SET UP OPERATOR GEAR Rid[place] LYNNETTE BEDOYA Comment: Test Performed by Anabela Wilkes, [place]te [place], [address] [place], [place] Tony Mckenzie M.D., Ph.D., Director of Laboratories , [place] [id number] 09/19/2024 2:49 AM TOOL GRINDER SET UP OPERATOR GEAR us Josh Jiménez MD LABORATORY Final Res ult [facility] [address] [place], [place] , * (ABNORMAL) PHENYTOIN (09/19/2024 2:49 AM TOOL GRINDER SET UP OPERATOR GEAR) PHENYTOIN <0.5(L) 10.0 - 20.0 MCG/ML 09/19/2024 3:15 AM TOOL GRINDER SET UP OPERATOR GEAR [facility] 09/19/2024 2:49 AM TOOL GRINDER SET UP OPERATOR GEAR us Josh Jiménez MD LABORATORY Final Res ult [facility] [address] [place] [address], from Last 3 Months Insurance [facility] Care Teams Gi Asst Relationship Specialty Start Date End Date Aaron Godinez DO [address] [place] [address] PCP - General FAMILY PRACTICE 07/08/24
[2024-11-29 11:59] LABS: Alanine Aminotransferase 107 U/L (16-63); Albumin Level 4.1 g/dL (3.4-5.0); Alkaline Phosphatase 138 U/L (46-116); Anion Gap 10 mmol/L (4-12); Aspartate Amino Transferase 44 U/L (15-37); Bilirubin,Total 0.2 mg/dL (0.00-1.00); Blood Urea Nitrogen 9 mg/dL (7-18); Calcium 9.2 mg/dL (8.5-10.1); Carbon Dioxide 26 mmol/L (21-32); Chloride 105 mmol/L (98-108); Estimated Glomerular Filt Rate > 60; Glucose 91 mg/dL (70-99); Osmolality Calculated 290 mOsm/kg (285-295); Potassium 4.4 mmol/L (3.5-5.1); Sodium 141 mmol/L (136-145); Total Protein 7.1 g/dL (6.4-8.2)
[2024-11-29 12:21] LABS: Thyroid Stimulating Hormone Reflex 2.73 u/IU/mL (0.36-3.74)
[2024-11-29 17:29] LABS: Phenytoin Dilantin 1 ug/mL (10-20)
[2024-11-30 10:34] LABS: Levetiracetam Keppra 25.3 mcg/mL (6.0-46.0)
[2024-12-02 02:38] LABS: Phenytoin Dilantin Free <0.5 mg/L (1.0-2.0)
[2024-12-02 06:03] LABS: Hepatitis B Surface Antigen NON-REACTIVE (NON-REACTIVE)
[2024-12-02 06:33] LABS: Hepatitis A Antibody IgM NON-REACTIVE (NON-REACTIVE); Hepatitis B Core Antibody NON-REACTIVE (NON-REACTIVE); Hepatitis C Virus Antibody NON-REACTIVE (NON-REACTIVE)
[2024-12-04 18:18] LABS: Oxcarbazepine 6.8 mcg/mL (8.0-35.0)
== END 2024-11-29 10:24 | disposition home or self-care (01) ==
LOC: CHSLAB 10:25
PROVIDERS: PCP Family Medicine; Visit Provider Family Medicine
DX: E03.9 Hypothyroidism, unspecified (principal); G40.309 Generalized idiopathic epilepsy and epileptic syndromes, not intractable, without status epilepticus; R74.01 Elevation of levels of liver transaminase levels
CPT/HCPCS: 36415; 80053; 80074; 80177; 80183; 80185; 80186; 84443; 85025

== ENCOUNTER 2024-12-03 08:59 | Outpatient (CLI) | payer OTHER, SELFPAY ==
--- NOTE | ~2024-12-03 | US_ITS ---
Limited Abdominal Sonogram: Real-time sonographic imaging of the right upper quadrant was performed. Clinical History: Abnormal serum enzyme levels Findings: The liver appears normal with no evidence of mass lesion or bile duct dilatation. Main por arjun vein demonstrates normal direction of flow. The gallbladder is well distended, and dose is gallbl adder wall polyps measuring 7 mm. The common bile duct measures 4 mm. The visualized pancreas, aorta , and IVC are unremarkable. Impression: Gallbladder wall polyps measure up to 7 mm. Reviewed, dictated and finalized at location . Impression: Gallbladder wall polyps measure up to 7 mm.
--- OUTSIDE RECORDS SUMMARY | 2024-12-03 09:30 | XMS_ITS | Encounter Summary ---
Author Organization [facility] Address [facility] [place] [address] Care Team Providers Care Stock Mixer Name Role Phone Kale Villalobos MD Primary Care Provider [phone] Dominic Lerma MD Primary Care Provider [phone] None, Provider Primary Care Provider Aaron Clarke DO Primary Care Provider [phone] Encounter Details Date Type Department Care Team (Late st Contact Info) Description 01/27/2019 Abstract [facility] CONVERSION [address] [place] [address] , Generic Conversion, Social History Tobacco Use Types Packs/Day Years Used Date Smoking Tobacco: Never Assessed Sex and Gender Information Value Date Recorded Sex Assigned at Male 09/19/2024 2:39 AM TELEGRAPH PLANT MAINTAINER Legal Sex Male 5:50 PM TELEGRAPH PLANT MAINTAINER Gender Identity Not on file Sexual Orientation Not on file documented as of this encounter Plan of Treatment Not on file documented as of this encounter Visit Diagnoses Not on filedocumented in this encounter Additional Health Concerns Infection Onset Date Last Indicated Resolved Time COVID-19 Rule Out 08/01/2024 08/01/2024 08/01/2024 3:42 AM TELEGRAPH PLANT MAINTAINER COVID-19 Rule Out 10/09/2024 10/09/2024 10/09/2024 6:33 PM TELEGRAPH PLANT MAINTAINER documented as of this encounter Care Teams Stock Mixer Relationship Specialty Start Date End Date Kale Villalobos MD [address] [facility] [place] [id number] PCP - General FAMILY PRACTICE 03/23/19 05/23/23 Dominic Lerma MD [address] [place] [id number] PCP - General INTERNAL MEDICINE 05/24/23 04/08/24 None, MD Demarco PCP - General UNKNOWN PHYSICIAN SPECIALTY 04/09/24 07/07/24 Aaron Godinez DO [address] [place] [address] PCP - General FAMILY PRACTICE 07/08/24 documented as of this encounter
--- OUTSIDE RECORDS SUMMARY | 2024-12-03 09:30 | XMS_ITS | Clinical Summary ---
Author Organization [facility] Address [address] [place] [address] Care Team Providers Care Lens Grinder Rough Name Role Phone Aaron Godinez DO Primary Care Provider [phone] Allergies No known active allergies Medications levETIRAcetam (KEPPRA) 1000 MG tablet Take 1 tablet (1,000 mg total) by mouth 2 (two) times daily. 4 Active phenytoin ER (DILANTIN KAPSEALS) 100 MG capsule Take 1 capsule (100 mg total) by mouth 2 (two) times daily. 4 Active OXcarbazepine (TRILEPTAL) 300 MG tablet Take 1 tablet (300 mg total) by mouth 2 (two) times daily. 60 tablet 4 Active levETIRAcetam (KEPPRA) 1000 MG tablet Take 1 tablet (1,000 mg total) by mouth 2 (two) times daily. 60 tablet 5 Active escitalopram (LEXAPRO) 20 MG tablet Take 1 tablet (20 mg total) by mouth daily. 4 12/02/19 25 Discontinued Active Problems No known active problems Encounters Date Type Department Care Team Description 12/01/2024 11:10 AM CDT - 12/01/2024 11:53 AM CDT Emergency [place] [facility] [place] [address] Danyelle Isaac MD Laceration Discharge Disposition: Home or Self Care (Routine Discharge) 12/01/2024 Travel 10/09/2024 5:44 PM CONGRESSIONAL DISTRICT AIDE - 10/09/2024 8:57 PM [facility] Emergency Room [address] [place] [address] [place] [address] Madhuri Dennis, Seizure Re-evaluation Discharge Disposition: Home or Self Care (Routine Discharge) 10/09/2024 Travel 09/30/2024 5:54 PM CONGRESSIONAL DISTRICT AIDE - 09/30/2024 9:10 PM [facility] Emergency Room [address] [place] [address] [place] [address] He Lott DO Seizure- Prior History Of Discharge Disposition: Home or Self Care (Routine Discharge) 09/30/2024 Travel 09/26/2024 3:49 AM [facility] - 09/26/2024 5:58 AM [facility] Emergency Room [address] [place] [address] [place] [address] Kuldip Hill MD Seizure- Prior History Of Discharge Disposition: Home or Self Care (Routine Discharge) 09/26/2024 Travel 09/19/2024 2:20 AM [facility] - 09/19/2024 5:31 AM [facility] Emergency Room [address] [place] [address] [place] [address] Josh Jiménez MD Seizure- Prior History Of Discharge Disposition: Home or Self Care (Routine Discharge) 09/19/2024 Travel from Last 3 Months Immunizations Immunization Administration Dates Next Due Tdap (Boostrix) 12/01/2024 Family History Medical History Relation Comments COPD [...] Sex Assigned at Male 09/19/2024 2:39 AM CONGRESSIONAL DISTRICT AIDE Legal Sex Male 5:50 PM CONGRESSIONAL DISTRICT AIDE Gender Identity Not on file Sexual Orientation Not on file Last Filed Vital Signs Vital Sign Reading Time Taken Comments Blood Pressure 162/97 12/01/2024 11:17 AM CDT Pulse 103 12/01/2024 11:17 AM CDT Temperature 37 C (98.6 F) 12/01/2024 11:17 AM CDT Respiratory Rate 18 12/01/2024 11:17 AM CDT Oxygen Saturation 95% 12/01/2024 11:17 AM CDT Inhaled Oxygen Concentration - - Weight 112 kg (247 lb) 12/01/2024 11:17 AM CDT Height 177.8 cm (5' 10 ) 12/01/2024 11:17 AM CDT Body Mass Index 35.44 12/01/2024 11:17 AM CDT Plan of Treatment Health Maintenance Due Date Last Done Comments Annual Physical 2004 Pneumococcal Vaccine: Pediatrics (0 to 5 Years) and At-Risk Patients (6 to 49 Years) (1 of 2 - PCV) 2007 HPV Vaccines (1 - Male 3-dose series) 2016 Meningococcal B Vaccine (2 of 2 - Bexsero SCDM 2-dose series) 09/27/2019 03/27/2019 Hepatitis C 2019 Hepatitis B Vaccines (1 of 3 - 19+ 3-dose series) 2020 COVID-19 Vaccine (1 - 2023- season) 2024 DTaP, Tdap and Td Vaccines (7 - Td or Tdap) 12/01/2034 12/01/2024, 03/24/2007, 10/17/2002, Additional history exists Meningococcal Vaccine Completed 03/27/2019 RSV Immunizations Under 20 Months Aged Out No longer eligible based on patient's age to complete this topic Procedures Procedure Name Priority Date/Time Associated Diagnosis Comments LACERATION REPAIR Routine 12/01/2024 11: 53 AM CDT URINE BACTERIA CULTURE STAT 7:26 PM CONGRESSIONAL DISTRICT AIDE HC URINALYSIS AUTO W/MICRO STAT 10/09/2024 7:26 PM CONGRESSIONAL DISTRICT AIDE ECG 12-LEAD Routine 10/09/2024 6:02 PM CONGRESSIONAL DISTRICT AIDE INFLUENZA A & B STAT 10/09/2024 6:02 PM CONGRESSIONAL DISTRICT AIDE CORONAVIRUS (COVID-19) ANTIGEN STAT 10/09/2024 6:02 PM CONGRESSIONAL DISTRICT AIDE MAGNESIUM STAT 10/09/2024 6:00 PM CONGRESSIONAL DISTRICT AIDE TROPONIN, QUANT STAT 10/09/2024 6:00 PM CONGRESSIONAL DISTRICT AIDE COMPREHENSIVE METABOLIC PANEL STAT 10/09/2024 6:00 PM CONGRESSIONAL DISTRICT AIDE CBC W/DIFF AUTOMATED STAT 10/09/2024 6:00 PM CONGRESSIONAL DISTRICT AIDE LACTIC ACID W REFLEX (SEPSIS) TIMED 09/30/2024 8:21 PM CONGRESSIONAL DISTRICT AIDE DRUG SCREEN RAPID STAT 09/30/2024 7:1 3 PM CONGRESSIONAL DISTRICT AIDE HC URINALYSIS AUTO W/MICRO STAT 09/30/2024 7:13 PM CONGRESSIONAL DISTRICT AIDE VALPROIC ACID STAT 09/30/2024 6:18 PM CONGRESSIONAL DISTRICT AIDE KEPPRA LEVEL STAT 09/30/2024 6:18 PM CONGRESSIONAL DISTRICT AIDE LACTIC ACID W REFLEX (SEPSIS) STAT 09/30/2024 6:18 PM CONGRESSIONAL DISTRICT AIDE COMPREHENSIVE METABOLIC PANEL STAT 09/30/2024 6:18 PM CONGRESSIONAL DISTRICT AIDE CBC W/DIFF AUTOMATED STAT 09/30/2024 6:18 [address] FACIAL BONES WO CON STAT 3:19 AM [address] CERV SPINE WO CON STAT 09/19/2024 3:19 AM [address] HEAD WO CON STAT 09/19/2024 3:19 AM CONGRESSIONAL DISTRICT AIDE XR SHOULDER RT MIN 2V STAT 09/19/2024 3:18 AM CONGRESSIONAL DISTRICT AIDE XR CHEST PORTABLE STAT 09/19/2024 3:1 8 AM CONGRESSIONAL DISTRICT AIDE CBC W/DIFF AUTOMATED STAT 09/19/2024 2:49 AM CONGRESSIONAL DISTRICT AIDE COMPREHENSIVE METABOLIC PANEL STAT 09/19/2024 2:49 AM CONGRESSIONAL DISTRICT AIDE TROPONIN, QUANT STAT 09/19/2024 2:49 AM CONGRESSIONAL DISTRICT AIDE MAGNESIUM STAT 09/19/2024 2:49 AM CONGRESSIONAL DISTRICT AIDE TRILEPTAL STAT 09/19/2024 2:49 AM CONGRESSIONAL DISTRICT AIDE PHENYTOIN STAT 09/19/2024 2:49 AM CONGRESSIONAL DISTRICT AIDE ECG 12-LEAD Routine 09/19/2024 2:44 AM CONGRESSIONAL DISTRICT AIDE from Last 3 Months Results * Lac Repair (12/01/2024 11:53 AM CDT) Danyelle Villatoro MD - 12/01/2024 11:53 AM CDT Eligio Dahl MD 12/01/2024 12:44 PM Lac Repair Date/Time: 12/01/2024 11:53 AM Performed by: Eligio Dahl MD Authorized by: Danyelle Isaac MD Consent: Consent obtained: Verbal Consent given by: Patient Risks, benefits, and alternatives were discussed: yes Risks discussed: Infection, poor wound healing, poor cosmetic result and pain Alternatives discussed: No treatment Fischer protocol: Patient identity confirmed: Verbally with patient Anesthesia: Anesthesia method: None Laceration details: Location: Foot Foot location: R heel Length (cm): 1 Depth (mm): 2 Exploration: Hemostasis achieved with: Direct pressure Wound exploration: wound explored through full range of motion and entire depth of wound visualized Wound extent: no areolar tissue violation noted, no fascia violation noted, no foreign bodies/material noted, no muscle damage noted, no nerve damage noted, no tendon damage noted, no underlying fracture noted and no vascular damage noted Contaminated: no Treatment: Area cleansed with: Saline Amount of cleaning: Standard Irrigation solution: Sterile saline Irrigation volume: 25 Debridement: None Undermining: None Scar revision: no Skin repair: Repair method: Tissue adhesive Approximation: Approximation: Close Repair type: Repair type: Simple Post-procedure details: Dressing: Adhesive bandage Procedure completion: Tolerated well, no immediate complications Danyelle Isaca MD PROCEDURE/MINOR SURGICAL OR DERABLES Final Result * (ABNORMAL) URINALYSIS (10/09/2024 7:26 PM CONGRESSIONAL DISTRICT AIDE) Only the most recent of2 resultswithin the time period is included. COLOR (U) YELLOW 10/09/2024 7:49 PM CONGRESSIONAL DISTRICT AIDE [facility] TRANSPARENCY CLEAR 10/09/2024 7:49 PM CONGRESSIONAL DISTRICT AIDE [facility] SPECIFIC GRAVITY (U) 1.020 1.000 - 1.025 10/09/2024 7:49 PM [facility] U PH 6.5 5.0 - 8.0 10/09/2024 7:49 PM [facility] LEUKOCYTES (U) NEGATIVE NEGATIVE 10/09/2024 7:49 PM [facility] NITRITES NEGATIVE NEGATIVE 10/09/2024 7:49 PM [facility] PROTEIN RANDOM (U) NEGATIVE NEGATIVE 10/09/2024 7:49 PM [facility] GLUCOSE (U) NEGATIVE NEGATIVE 10/09/2024 7:49 PM [facility] KETONES MG/DL (U) NEGATIVE NEGATIVE 10/09/2024 7:49 PM [facility] UROBILINOGEN 0.2 <1.0 EU/DL 10/09/2024 7:49 PM [facility] BILIRUBIN (U) NEGATIVE NEGATIVE 10/09/2024 7:49 PM [facility] BLOOD (U) TRACE(A) NEGATIVE 10/09/2024 7:49 PM CONGRESSIONAL DISTRICT AIDE [facility] WBC/HPF 0-5 0 - 5 /HPF 10/09/2024 7:49 PM [facility] RBC/HPF 0-5 0 - 5 /HPF 10/09/2024 7:49 PM CONGRESSIONAL DISTRICT AIDE [facility] EPI/LPF RARE /LPF 10/09/2024 7:49 PM CONGRESSIONAL DISTRICT AIDE [facility] BACTERIA (U) TRACE /HPF 10/09/2024 7:49 PM CONGRESSIONAL DISTRICT AIDE [facility] MUCUS PRESENT 10/09/2024 7:49 PM CONGRESSIONAL DISTRICT AIDE [facility] URINE SPECIMEN OBTAINED BY CLEAN CATCH PROCEDURE / Unknown 10/09/2024 7:26 PM CONGRESSIONAL DISTRICT AIDE us Madhuri Dennis DO URINE ORDERABLES Final R esult [address] [address], [place] [phone] * CULTURE URINE (10/09/2024 7:26 PM CONGRESSIONAL DISTRICT AIDE) SPEC DESCRIPTION URINE CLEAN CATCH 10/09/2024 7:28 PM CONGRESSIONAL DISTRICT AIDE [facility] SPECIAL REQUESTS NO SPECIAL REQUEST 10/09/2024 7:28 PM CONGRESSIONAL DISTRICT AIDE [facility] CULTURE RESULT FEW CONTAMINANTS 09/23 10:39 AM CONGRESSIONAL DISTRICT AIDE [facility] URINE SPECIMEN OBTAINED BY CLEAN CATCH PROCEDURE / Unknown 10/09/2024 7:26 PM CONGRESSIONAL DISTRICT AIDE 10/09/2024 7:31 PM CONGRESSIONAL DISTRICT AIDE us Madhuri Dennis DO MICROBIOLOGY - GENERAL O RDERABLES Final Result [facility] [address] [place] [address], [place] [id number] [facility] [address] [place] [address], [place] [phone] * ECG 12 lead (10/09/2024 6:02 PM CONGRESSIONAL DISTRICT AIDE) Only the most recent of2 resultswithin the time period is included. 10/09/2024 6:02 PM CONGRESSIONAL DISTRICT AIDE Narrative [facility] - 10/10/2024 8:13 AM CONGRESSIONAL DISTRICT AIDE [address] [place] [address] Test Date: 2024-10-09 Pat Name: STEPH ESPINAL Department: 3 Room: EXAM 808 Gender: Male Automotive Service Technician: : 2000 Requested By: MADHURI DENNIS Order Number: [id number] Reading : Sharif Webb Measurements Intervals Rincon Rate: 90 P: 18 NC: 155 QRS: 76 QRSD: 90 T: 5 QT: 341 QTc: 418 Interpretive Statements SINUS RHYTHM RESSIONAL DISTRICT AIDE Procedure Note Sharif Webb MD - 10/10/[address] [place] [address] Test Date: 2024-10-09 Pat Name: STEPH ESPINAL Department: 3 Room: EXAM 808 Gender: Male Automotive Service Technician: : 2000 Requested By: MADHURI DENNIS Order Number: [id number] Reading SERGE Webb Measurements Intervals Rincon Rate: 90 P: 18 NC: 155 QRS: 76 QRSD: 90 T: 5 QT: 341 QTc: 418 Interpretive Statements SINUS RHYTHM RESSIONAL DISTRICT AIDE us Madhuri Dennis DO ECG ORDERABLES Final Re sult [facility] * CORONAVIRUS (COVID-19) ANTIGEN (10/09/2024 6:02 PM CONGRESSIONAL DISTRICT AIDE) CORONAVIRUS ANTIGEN [place] NEGATIVE NEGATIVE 10/09/2024 6:33 PM CONGRESSIONAL DISTRICT AIDE [facility] Comment: NEGATIVE RESULTS DO NOT [...] LABORATORIES. SPECIMEN TYPE NASAL 10/09/2024 6:03 PM CONGRESSIONAL DISTRICT AIDE [facility] NASAL NASAL STRUCTURE / Unknown 10/09/2024 6:02 PM CONGRESSIONAL DISTRICT AIDE Madhuri Dennis DO MICROBIOLOGY - GENERAL O RDERABLES Final Result Performing Organization Address [facility] Co de Phone Number [facility] [address] [place] [address], * INFLUENZA A & B (10/09/2024 6:02 PM CONGRESSIONAL DISTRICT AIDE) SPECIMEN TYPE (INFLUENZA) NASAL 10/09/2024 6:03 PM CONGRESSIONAL DISTRICT AIDE [facility] INFLUENZA A NEGATIVE NEGATIVE 10/09/2024 6:33 PM CONGRESSIONAL DISTRICT AIDE [facility] INFLUENZA B NEGATIVE NEGATIVE 10/09/2024 6:33 PM CONGRESSIONAL DISTRICT AIDE [facility] Comment: A NEGATIVE RESULT DOES NOT EXCLUDE INFLUENZA VIRUS INFECTION. IF INFLUENZA IS CIRCULATING IN YOUR COMMUNITY, A DIAGNOSIS OF INFLUENZA SHOULD BE CONSIDERED BASED ON A PATIENT'S CLINICAL PRESENTATION AND EMPIRIC ANTIVIRAL TREATMENT SHOULD BE CONSIDERED IF INDICATED. NASAL STRUCTURE / Unknown 10/09/2024 6:02 PM CONGRESSIONAL DISTRICT AIDE Madhuri Pauljolynn Dennis DO MICROBIOLOGY - GENERAL O RDERABLES Final Result Performing Organization Address City/[facility] Co de Phone Number [facility] [address] [place] [address], * (ABNORMAL) COMPREHENSIVE METABOLIC PANEL (10/09/2024 6:00 PM CONGRESSIONAL DISTRICT AIDE) Only the most recent of3 resultswithin the time period is included. SODIUM S/P/B 140 136 - 145 MMOL/L 10/09/2024 6:24 PM CONGRESSIONAL DISTRICT AIDE [facility] POTASSIUM S/P/B 3.8 3.5 - 5.1 MMOL/L 10/09/2024 6:24 PM CONGRESSIONAL DISTRICT AIDE [facility] CHLORIDE S/P/B 102 98 - 107 MMOL/L 10/09/2024 6:24 PM [facility] CO2 28.7 21.0 - 32.0 MMOL/L 10/09/2024 6:24 PM [facility] GLUCOSE 72 70 - 99 MG/DL 10/09/2024 6:24 PM [facility] Comment: FASTING GLUCOSE 100 TO 125 MG/DL IS CONSISTENT WITH IMPAIRED FASTING GLUCOSE. FASTING GLUCOSE >125 MG/DL IS CONSISTENT WITH DIABETES. RANDOM GLUCOSE >200 MG/DL WITH HYPERGLYCEMIC SYMPTOMS IS CONSISTENT WITH DIABETES. PER ADA GUIDELINES BUN 6 6 - 24 MG/DL 10/09/2024 6:24 PM [facility] CREATININE S/P/B 0.96 0.70 - 1.30 MG/DL 10/09/2024 6:24 PM [facility] CALCIUM S/P/B 9.5 8.4 - 10.5 MG/DL 10/09/2024 6:24 PM [facility] BILIRUBIN TOTAL S/P/B 0.3 0.2 - 1.0 MG/DL 10/09/2024 6:24 PM [facility] Comment: THIS ASSAY IS NOT RECOMMENDED FOR PATIENTS UNDERGOING TREATMENT WITH ELTROMBOPAG DUE TO THE POTENTIAL FOR FALSELY ELEVATED RESULTS. ALKALINE PHOSPHATASE S/P/B 120(H) 45 - 115 U/L 10/09/2024 6:24 PM [facility] AST 34 15 - 37 U/L 10/09/2024 6:24 PM [facility] ALT 93(H) 16 - 63 U/L 10/09/2024 6:24 PM [facility] TOTAL PROTEIN S/P/B 8.1 6.4 - 8.2 G/DL 10/09/2024 6:24 PM [facility] ALBUMIN S/P/B 4.3 3.4 - 5.0 G/DL 10/09/2024 6:24 PM [facility] ANION GAP 9.3 5.0 - 15.0 MMOL/L 10/09/2024 6:24 PM [facility] OSMOLALITY (CALC) 286 MOSM/KG 025 6:24 PM CONGRESSIONAL DISTRICT AIDE [facility] Comment:REFERENCE RANGE NOT ESTABLISHED GFR ESTIMATE >90 >89 ML/MIN/1. 73 M2 10/09/2024 6:24 PM CONGRESSIONAL DISTRICT AIDE [facility] GFR NOTES GFR REFERENCE S: 10/09/2024 6:24 PM CONGRESSIONAL DISTRICT AIDE [facility] Comment: THE ESTIMATED GFR IS [...] FAILURE: <15 ml/min/1.73 m2 10/09/2024 6:00 PM CONGRESSIONAL DISTRICT AIDE us Madhuri Dennis DO LABORATORY Final Re sult [facility] [address] [place] [address], * CBC W/DIFF AUTOMATED (10/09/2024 6:00 PM CONGRESSIONAL DISTRICT AIDE) Only the most recent of3 resultswithin the time period is included. WBC 7.44 4.00 - 10.80 x10'3/uL 10/09/2024 6:11 PM CONGRESSIONAL DISTRICT AIDE [facility] RBC 5.58 4.50 - 6.10 x10'6/uL 10/09/2024 6:11 PM CONGRESSIONAL DISTRICT AIDE [facility] HGB 16.7 13.0 - 18.0 G/DL 10/09/2024 6:11 PM CONGRESSIONAL DISTRICT AIDE [facility] HCT 50.3 37.0 - 52.0 % 10/09/2024 6:11 PM CONGRESSIONAL DISTRICT AIDE [facility] MCV 90.1 78.0 - 100.0 FL 10/09/2024 6:11 PM [facility] MCH 29.9 27.0 - 31.0 PG 10/09/2024 6:11 PM [facility] MCHC 33.2 33.0 - 36.0 G/DL 10/09/2024 6:11 PM [facility] RDW 12.8 11.5 - 14.5 % 10/09/2024 6:11 PM [facility] PLT 222 150 - 350 x10'3/uL 10/09/2024 6:11 PM [facility] MPV 9.0 7.4 - 10.4 FL 10/09/2024 6:11 PM [facility] CBC COMMENT NORMAL REFERENCE RANGE NOT ESTABLISHED FOR THE PROPORTIONAL LEUKOCYTE DIFFERENTIAL. 10/09/2024 6:11 PM [facility] NEUTROPHILS % 70.9 % 10/09/2024 6:11 PM [facility] LYMPHOCYTES % 21.4 % 10/09/2024 6:11 PM [facility] MONOCYTES % 4.8 % 10/09/2024 6:11 PM [facility] EOSINOPHILS % 2.0 % 10/09/2024 6:11 PM [facility] BASOPHILS % 0.5 % 10/09/2024 6:11 PM [facility] IMMATURE GRANS % 0.4 % 10/09/19 25 6:11 PM [facility] NRBC % 0.0 % 10/09/2024 6:11 PM [facility] ABS. NEUTROPHILS 5.27 1.60 - 8.30 x10'3/uL 10/09/2024 6:11 PM [facility] ABS. LYMPHOCYTES 1.59 0.80 - 4.70 x10'3/uL 10/09/2024 6:11 PM [facility] ABS. MONOCYTES 0.36 0.00 - 1.50 x10'3/uL 10/09/2024 6:11 PM [facility] ABS. EOSINOPHILS 0.15 0.00 - 0.40 x10'3/uL 10/09/2024 6:11 PM CONGRESSIONAL DISTRICT AIDE [facility] ABS. BASOPHILS 0.04 0.00 - 0.20 x10'3/uL 10/09/2024 6:11 PM CONGRESSIONAL DISTRICT AIDE [facility] ABS. IMMATURE GRANULOCYTES 0.03 0.00 - 0.03 x10'3/uL 10/09/2024 6:11 PM CONGRESSIONAL DISTRICT AIDE [facility] ABS. NUCLEATED RBC'S 0.00 0.00 - 0.01 x10'3/uL 10/09/2024 6:11 PM CONGRESSIONAL DISTRICT AIDE [facility] 10/09/2024 6:00 PM CONGRESSIONAL DISTRICT AIDE Madhuri Gomes Jeannie DO LABORATORY Final Re sult Performing Organization Address [facility] [place] [address], * TROPONIN, QUANT (10/09/2024 6:00 PM CONGRESSIONAL DISTRICT AIDE) Only the most recent of2 resultswithin the time period is included. TROPONIN I HIGH SENSITIVITY 5 0 - 76 ng/L 10/09/2024 6:24 PM CONGRESSIONAL DISTRICT AIDE [facility] 10/09/2024 6:00 PM CONGRESSIONAL DISTRICT AIDE Madhurieric Gomes Jeannie DO LABORATORY Final Re sult Performing Organization Address [facility]/ZIP Co de Phone Number [facility] [address] [place] [address], [place] [phone] * MAGNESIUM (10/09/2024 6:00 PM CONGRESSIONAL DISTRICT AIDE) Only the most recent of2 resultswithin the time period is included. MAGNESIUM 2.2 1.8 - 2.4 MG/DL 10/09/2024 6:24 PM CONGRESSIONAL DISTRICT AIDE [facility] 10/09/2024 6:0 0 PM CONGRESSIONAL DISTRICT AIDE us Madhuri Oliviercy DO LABORATORY Final Re sult Performing Organization Address City/[facility]/ZIP Co de Phone Number [facility] [address] [place] [address], [place] [phone] * LACTIC ACID W REFLEX (SEPSIS) (09/30/2024 8:21 PM CONGRESSIONAL DISTRICT AIDE) Only the most recent of2 resultswithin the time period is included. LACTIC ACID VENOUS 1.5 0.4 - 2.0 MMOL/L 09/30/2024 8:45 PM CONGRESSIONAL DISTRICT AIDE [facility] 09/30/2024 8:21 PM CONGRESSIONAL DISTRICT AIDE us He Lott DO LABORATORY Final Result Performing Organization Address [facility]/ZIP Co de Phone Number [facility] [address] [place] [address], [place] [phone] * (ABNORMAL) DRUG SCREEN RAPID (09/30/2024 7:13 PM CONGRESSIONAL DISTRICT AIDE) CANNABINOIDS SCREEN (U) POSITIVE(A) NEGATIVE 09/30/2024 7:42 PM CONGRESSIONAL DISTRICT AIDE [facility] PHENCYCLIDINE PCP (U) NEGATIVE NEGATIVE 09/30/2024 7:42 PM CONGRESSIONAL DISTRICT AIDE [facility] COCAINE METABOLITES (U) NEGATIVE NEGATIVE 09/30/2024 7:42 PM CONGRESSIONAL DISTRICT AIDE [facility] METHAMPHETAMINE SCREEN (U) NEGATIVE NEGATIVE 09/30/2024 7:42 PM CONGRESSIONAL DISTRICT AIDE [facility] OPIATE SCREEN (U) NEGATIVE NEGATIVE 025 7:42 PM CONGRESSIONAL DISTRICT AIDE [facility] AMPHETAMINE SCREEN (U) NEGATIVE NEGATIVE 09/30/2024 7:42 PM CONGRESSIONAL DISTRICT AIDE [facility] BENZODIAZEPINES SCREEN (U) NEGATIVE NEGATIVE 09/30/2024 7:42 PM CONGRESSIONAL DISTRICT AIDE [facility] TRICYCLIC ANTIDEPRESSANT SCREEN (U) NEGATIVE NEGATIVE 09/30/2024 7:42 PM CONGRESSIONAL DISTRICT AIDE [facility] METHADONE (U) NEGATIVE NEGATIVE 09/30/2024 7:42 PM CONGRESSIONAL DISTRICT AIDE [facility] BARBITURATES SCREEN (U) POSITIVE(A) NEGATIVE 09/30/2024 7:42 PM CONGRESSIONAL DISTRICT AIDE [facility] OXYCODONE SCREEN (U) NEGATIVE NEGATIVE 09/30/2024 7:42 PM CONGRESSIONAL DISTRICT AIDE [facility] URINE TOX COMMENT THIS TEST METHODOLOGY IS DESIGNED AND OFFERED A RAPID TURNAROUND, QUALITATIVE SCREENING PROCEDURE TO AID IN THE IMMEDIATE MEDICAL ASSESSMENT OF PATIENTS SUSPECTED OF SUBSTANCE ABUSE. 09/30/2024 7:20 PM CONGRESSIONAL DISTRICT AIDE [facility] Comment: CLINICAL CONSIDERATION AND PROFESSIONAL JUDGMENT MUST BE APPLIED TO ANY DRUG OF ABUSE TEST RESULT, BOTH POSITIVE AND NEGATIVE. CONFIRMATORY QUANTITATIVE RESULTS ARE AVAILABLE THROUGH OUR [facility]. URINE SPECIMEN / Unknown 09/30/2024 7:13 PM CONGRESSIONAL DISTRICT AIDE us He Lott DO URINE ORDERABLES Final Result Performing Organization Address [facility]/ZIP Co de Phone Number [facility] [address] [place] [address], * (ABNORMAL) KEPPRA LEVEL (09/30/2024 6:18 PM CONGRESSIONAL DISTRICT AIDE) KEPPRA <2.0(L) 6.0 - 46.0 mcg/mL 10/03/2024 11:52 PM CONGRESSIONAL DISTRICT AIDE [facility] Comment: Brivaracetam (Briviact(R), Rikelta(R)) exhibits significant cross-reactivity in the Levetiracetam (Keppra(R), Spritam(R)) immunoassay. If Brivaracetam has been prescribed, order test code 16854 Levetiracetam by LCMSMS. Test Performed by [email or web address], [email or web address], [address] [place], [place] Tony Mckenzie M.D., Ph.D., Director of Laboratories , [place] [id number] 09/30/2024 6:18 PM CONGRESSIONAL DISTRICT AIDE us He Lott DO LABORATORY Final Result [facility] [address] [place] [address], [place] [phone] * (ABNORMAL) VALPROIC ACID (09/30/2024 6:18 PM CONGRESSIONAL DISTRICT AIDE) VALPROIC ACID 5.0(L) 50.0 - 100.00 MCG/ML 09/30/2024 7:00 PM CONGRESSIONAL DISTRICT AIDE [facility] 09/30/2024 6:18 PM CONGRESSIONAL DISTRICT AIDE us He Lott DO LABORATORY Final Result Performing Organization Address [facility] [facility] Co de Phone Number [facility] [address] [place] [id number], [place] [phone] * CT HEAD WO CON (09/19/2024 3:19 AM CONGRESSIONAL DISTRICT AIDE) Anatomical Region Laterality Modality Head Computed Tomogra phy 09/19/2024 3:21 AM CONGRESSIONAL DISTRICT AIDE Impressions 09/19/2024 3:25 AM CONGRESSIONAL DISTRICT AIDE IMPRESSION: 1. No CT evidence of an acute intracranial abnormality. 2. No maxillofacial bone fracture. 3. No cervical spine fracture. Referred By: Interpreted By: Rosas Shin MD, 09/19/2024 3:21 AM Narrative 09/19/2024 3:25 AM CONGRESSIONAL DISTRICT AIDE [address] [place] [address] EXAMINATION: CT HEAD WO CON, CT FACIAL [...] Procedure Note Rosas Shin MD - 09/19/[address] [place] [address] EXAMINATION: CT HEAD WO CON, CT FACIAL [...] FACIAL BONES WO CON (09/19/2024 3:19 AM CONGRESSIONAL DISTRICT AIDE) Anatomical Region Laterality Modality Facial Computed Tomogra phy 09/19/2024 3:21 AM CONGRESSIONAL DISTRICT AIDE Impressions 09/19/2024 3:25 AM CONGRESSIONAL DISTRICT AIDE IMPRESSION: 1. No CT evidence of an acute intracranial abnormality. 2. No maxillofacial bone fracture. 3. No cervical spine fracture. Referred By: Interpreted By: Rosas Shin MD, 09/19/2024 3:21 AM Narrative 09/19/2024 3:25 AM CONGRESSIONAL DISTRICT AIDE [address] [place] [address] EXAMINATION: CT HEAD WO CON, CT FACIAL [...] Procedure Note Rosas Shin MD - 09/19/2024 [place] [id number] [place] [address] EXAMINATION: CT HEAD WO CON, CT FACIAL [...] CERV SPINE WO CON (09/19/2024 3:19 AM CONGRESSIONAL DISTRICT AIDE) Anatomical Region Laterality Modality Spine Computed Tomogra phy 09/19/2024 3:21 AM CONGRESSIONAL DISTRICT AIDE Impressions 09/19/2024 3:25 AM CONGRESSIONAL DISTRICT AIDE IMPRESSION: 1. No CT evidence of an acute intracranial abnormality. 2. No maxillofacial bone fracture. 3. No cervical spine fracture. Referred By: Interpreted By: Rosas Shin MD, 09/19/2024 3:21 AM Narrative 09/19/2024 3:25 AM CONGRESSIONAL DISTRICT AIDE [address] [place] [address] EXAMINATION: CT HEAD WO CON, CT FACIAL [...] Procedure Note Rosas Shin MD - 09/19/2024 [facility] [address] [place] [address] EXAMINATION: CT HEAD WO CON, CT FACIAL [...] SHOULDER RT MIN 2V (09/19/2024 3:18 AM CONGRESSIONAL DISTRICT AIDE) Anatomical Region Laterality Modality Shoulder Radiographic Kayla ging 09/19/2024 3:23 AM CONGRESSIONAL DISTRICT AIDE Impressions 09/19/2024 3:24 AM CONGRESSIONAL DISTRICT AIDE IMPRESSION: 1. No acute osseous abnormalities. Referred By: Interpreted By: Juan Manuel Green MD, 09/19/2024 3:23 AM Narrative 09/19/2024 3:24 AM CONGRESSIONAL DISTRICT AIDE [address] [place] [address] Examination: 2 or more views right shoulder [...] Note Juan Manuel Green MD - 09/19/[address] [place] [address] Examination: 2 or more views right shoulder [...] Juan Manuel Green MD, 09/19/2024 3:23 AM Josh Jiménez MD GENERAL IMAGING Final Res ult * XR CHEST PORTABLE (09/19/2024 3:18 AM CONGRESSIONAL DISTRICT AIDE) Anatomical Region Laterality Modality Chest Radiographic Kayla ging 09/19/2024 3:22 AM CONGRESSIONAL DISTRICT AIDE Impressions 09/19/2024 3:23 AM CONGRESSIONAL DISTRICT AIDE IMPRESSION: ======== 1. Borderline prominent vascularity may be secondary to positioning. No convincing acute cardiopulmonary findings within limitations of exam. Referred By: Interpreted By: Juan Manuel Green MD, 09/19/2024 3:22 AM Narrative 09/19/2024 3:23 AM CONGRESSIONAL DISTRICT AIDE [place] [address] [place] [id number] Examination: Chest x-ray 1 view Exam Date/Time: [...] Note Juan Manuel Green MD - 09/19/2024 [place] [address] [place] [id number] Examination: Chest x-ray 1 view Exam Date/Time: [...] ult * (ABNORMAL) TRILEPTAL (09/19/2024 2:49 AM CONGRESSIONAL DISTRICT AIDE) TRILEPTAL <1.0(L) 8.0 - 35.0 mcg/mL 09/22/2024 5:20 PM CONGRESSIONAL DISTRICT AIDE [facility] DANI BEDOYA Comment: Test Performed by Anabela Wilkes, [email or web address] [facility], [address] [place] [address] Tony Mckenzie M.D., Ph.D., Director of Laboratories , [facility] [id number] 09/19/2024 2:49 AM CONGRESSIONAL DISTRICT AIDE us Josh Jiménez MD LABORATORY Final Res ult [facility] [address] , * (ABNORMAL) PHENYTOIN (09/19/2024 2:49 AM CONGRESSIONAL DISTRICT AIDE) PHENYTOIN <0.5(L) 10.0 - 20.0 MCG/ML 09/19/2024 3:15 AM CONGRESSIONAL DISTRICT AIDE [facility] 09/19/2024 2:49 AM CONGRESSIONAL DISTRICT AIDE us Josh Jiménez MD LABORATORY Final Res ult [facility] [address] [place] [address], from Last 3 Months Insurance FORMERLY [facility], [facility] Care Teams L[employer]inder Rough Relationship Specialty Start Date End Date Aaron Godinez DO [address] [place] [address] PCP - General FAMILY PRACTICE 07/08/24
== END 2024-12-03 09:00 | disposition home or self-care (01) ==
LOC: CHSIMG 09:00
PROVIDERS: PCP Family Medicine; Visit Provider Family Medicine
DX: R74.8 Abnormal levels of other serum enzymes (principal); K82.4 Cholesterolosis of gallbladder
CPT/HCPCS: 76705

== ENCOUNTER 2024-12-08 06:55 | Outpatient (CLI) | payer OTHER, SELFPAY ==
--- NOTE | ~2024-12-08 | MR_ITS ---
MRI of the brain Clinical History: Headache Technique: Axial and sagittal T1-weighted images were acquired. These were followed by axial T2-weigh edie, diffusion weighted, gradient, and FLAIR images. Findings: There is no abnormal signal in the brain parenchyma. No acute infarct, intracranial hemorrh age or mass lesion. Ventricles and subarachnoid spaces are unremarkable. Orbits are unremarkable. Paranasal sinuses and m astoid air cells are clear. Major intracranial flow voids are intact. Sagittal midline structures are intact. IMPRESSION: Normal exam. Reviewed, dictated and finalized at location M. IMPRESSION: Normal exam.
--- OUTSIDE RECORDS SUMMARY | 2024-12-08 06:59 | XMS_ITS | Clinical Summary ---
Author Organization [facility] Address [address] [place] [address] Care Team Providers Care Rod Hanger Name Role Phone Aaron Godinez DO Primary Care Provider [phone] Allergies No known active allergies Medications levETIRAcetam [...] CDT - 12/01/2024 11:53 AM CDT Emergency [place] [facility] [place] [address] Danyelle Isaac MD Laceration Discharge Disposition: Home or Self Care (Routine Discharge) 12/01/2024 Travel 10/09/2024 5:44 PM ADULT REMEDIAL EDUCATION INSTRUCTOR - 10/09/2024 8:57 PM [facility] Emergency Room [address] [place] [address] [place] [address] Madhuri Dennis, Seizure Re-evaluation Discharge Disposition: Home or Self Care (Routine Discharge) 10/09/2024 Travel 09/30/2024 5:54 PM ADULT REMEDIAL EDUCATION INSTRUCTOR - 09/30/2024 9:10 PM [facility] Emergency Room [address] [place] [address] [place] [address] He Lott DO Seizure- Prior History Of Discharge Disposition: Home or Self Care (Routine Discharge) 09/30/2024 Travel 09/26/2024 3:49 AM [facility] - 09/26/2024 5:58 AM [facility] Emergency Room [address] [place] [address] [place] [address] Kuldip Hill MD Seizure- Prior History Of Discharge Disposition: Home or Self Care (Routine Discharge) 09/26/2024 Travel 09/19/2024 2:20 AM [facility] - 09/19/2024 5:31 AM [facility] Emergency Room [address] [place] [address] [place] [address] Josh Jiménez MD Seizure- Prior History Of [...] Sex Assigned at Male 09/19/2024 2:39 AM ADULT REMEDIAL EDUCATION INSTRUCTOR Legal Sex Male 5:50 PM ADULT REMEDIAL EDUCATION INSTRUCTOR Gender Identity Not on file Sexual Orientation [...] CDT URINE BACTERIA CULTURE STAT 7:26 PM ADULT REMEDIAL EDUCATION INSTRUCTOR HC URINALYSIS AUTO W/MICRO STAT 10/09/2024 7:26 PM ADULT REMEDIAL EDUCATION INSTRUCTOR ECG 12-LEAD Routine 10/09/2024 6:02 PM ADULT REMEDIAL EDUCATION INSTRUCTOR INFLUENZA A & B STAT 10/09/2024 6:02 PM ADULT REMEDIAL EDUCATION INSTRUCTOR CORONAVIRUS (COVID-19) ANTIGEN STAT 10/09/2024 6:02 PM ADULT REMEDIAL EDUCATION INSTRUCTOR MAGNESIUM STAT 10/09/2024 6:00 PM ADULT REMEDIAL EDUCATION INSTRUCTOR TROPONIN, QUANT STAT 10/09/2024 6:00 PM ADULT REMEDIAL EDUCATION INSTRUCTOR COMPREHENSIVE METABOLIC PANEL STAT 10/09/2024 6:00 PM ADULT REMEDIAL EDUCATION INSTRUCTOR CBC W/DIFF AUTOMATED STAT 10/09/2024 6:00 PM ADULT REMEDIAL EDUCATION INSTRUCTOR LACTIC ACID W REFLEX (SEPSIS) TIMED 09/30/2024 8:21 PM ADULT REMEDIAL EDUCATION INSTRUCTOR DRUG SCREEN RAPID STAT 09/30/2024 7:1 3 PM ADULT REMEDIAL EDUCATION INSTRUCTOR HC URINALYSIS AUTO W/MICRO STAT 09/30/2024 7:13 PM ADULT REMEDIAL EDUCATION INSTRUCTOR VALPROIC ACID STAT 09/30/2024 6:18 PM ADULT REMEDIAL EDUCATION INSTRUCTOR KEPPRA LEVEL STAT 09/30/2024 6:18 PM ADULT REMEDIAL EDUCATION INSTRUCTOR LACTIC ACID W REFLEX (SEPSIS) STAT 09/30/2024 6:18 PM ADULT REMEDIAL EDUCATION INSTRUCTOR COMPREHENSIVE METABOLIC PANEL STAT 09/30/2024 6:18 PM ADULT REMEDIAL EDUCATION INSTRUCTOR CBC W/DIFF AUTOMATED STAT 09/30/2024 6:18 PM ADULT REMEDIAL EDUCATION INSTRUCTOR CT FACIAL BONES WO CON STAT 3:19 AM ADULT REMEDIAL EDUCATION INSTRUCTOR CT CERV SPINE WO CON STAT 09/19/2024 3:19 AM ADULT REMEDIAL EDUCATION INSTRUCTOR CT HEAD WO CON STAT 09/19/2024 3:19 AM ADULT REMEDIAL EDUCATION INSTRUCTOR XR SHOULDER RT MIN 2V STAT 09/19/2024 3:18 AM ADULT REMEDIAL EDUCATION INSTRUCTOR XR CHEST PORTABLE STAT 09/19/2024 3:1 8 AM ADULT REMEDIAL EDUCATION INSTRUCTOR CBC W/DIFF AUTOMATED STAT 09/19/2024 2:49 AM ADULT REMEDIAL EDUCATION INSTRUCTOR COMPREHENSIVE METABOLIC PANEL STAT 09/19/2024 2:49 AM ADULT REMEDIAL EDUCATION INSTRUCTOR TROPONIN, QUANT STAT 09/19/2024 2:49 AM ADULT REMEDIAL EDUCATION INSTRUCTOR MAGNESIUM STAT 09/19/2024 2:49 AM ADULT REMEDIAL EDUCATION INSTRUCTOR TRILEPTAL STAT 09/19/2024 2:49 AM ADULT REMEDIAL EDUCATION INSTRUCTOR PHENYTOIN STAT 09/19/2024 2:49 AM ADULT REMEDIAL EDUCATION INSTRUCTOR ECG 12-LEAD Routine 09/19/2024 2:44 AM ADULT REMEDIAL EDUCATION INSTRUCTOR from Last 3 Months Results * Lac [...] result and pain Alternatives discussed: No treatment [place] protocol: Patient identity confirmed: Verbally with patient [...] completion: Tolerated well, no immediate complications Danyelle Isaac MD PROCEDURE/MINOR SURGICAL OR DERABLES Final Result * (ABNORMAL) URINALYSIS (10/09/2024 7:26 PM ADULT REMEDIAL EDUCATION INSTRUCTOR) Only the most recent of2 resultswithin the time period is included. COLOR (U) YELLOW 10/09/2024 7:49 PM ADULT REMEDIAL EDUCATION INSTRUCTOR [facility] TRANSPARENCY CLEAR 10/09/2024 7:49 PM ADULT REMEDIAL EDUCATION INSTRUCTOR [facility] SPECIFIC GRAVITY (U) 1.020 1.000 - 1.025 10/09/2024 7:49 PM [facility] U PH 6.5 5.0 - 8.0 10/09/2024 7:49 PM [facility] LEUKOCYTES (U) NEGATIVE NEGATIVE 10/09/2024 7:49 PM [facility] NITRITES NEGATIVE NEGATIVE 10/09/2024 7:49 PM [facility] PROTEIN RANDOM (U) NEGATIVE NEGATIVE 10/09/2024 7:49 PM [facility] GLUCOSE (U) NEGATIVE NEGATIVE 10/09/2024 7:49 PM [facility] KETONES MG/DL (U) NEGATIVE NEGATIVE 10/09/2024 7:49 PM [facility] UROBILINOGEN 0.2 <1.0 EU/DL 10/09/2024 7:49 PM [facility] BILIRUBIN (U) NEGATIVE NEGATIVE 10/09/2024 7:49 PM [facility] BLOOD (U) TRACE(A) NEGATIVE 10/09/2024 7:49 PM ADULT REMEDIAL EDUCATION INSTRUCTOR [facility] WBC/HPF 0-5 0 - 5 /HPF 10/09/2024 7:49 PM [facility] RBC/HPF 0-5 0 - 5 /HPF 10/09/2024 7:49 PM ADULT REMEDIAL EDUCATION INSTRUCTOR [facility] EPI/LPF RARE /LPF 10/09/2024 7:49 PM ADULT REMEDIAL EDUCATION INSTRUCTOR [facility] BACTERIA (U) TRACE /HPF 10/09/2024 7:49 PM ADULT REMEDIAL EDUCATION INSTRUCTOR [facility] MUCUS PRESENT 10/09/2024 7:49 PM ADULT REMEDIAL EDUCATION INSTRUCTOR [facility] URINE SPECIMEN OBTAINED BY CLEAN CATCH PROCEDURE / Unknown 10/09/2024 7:26 PM ADULT REMEDIAL EDUCATION INSTRUCTOR us Madhuri Dennis DO URINE ORDERABLES Final R esult [address] [address], [place] [phone] * CULTURE URINE (10/09/2024 7:26 PM ADULT REMEDIAL EDUCATION INSTRUCTOR) SPEC DESCRIPTION URINE CLEAN CATCH 10/09/2024 7:28 PM ADULT REMEDIAL EDUCATION INSTRUCTOR [facility] SPECIAL REQUESTS NO SPECIAL REQUEST 10/09/2024 7:28 PM ADULT REMEDIAL EDUCATION INSTRUCTOR [facility] CULTURE RESULT FEW CONTAMINANTS 09/23 10:39 AM ADULT REMEDIAL EDUCATION INSTRUCTOR [facility] URINE SPECIMEN OBTAINED BY CLEAN CATCH PROCEDURE / Unknown 10/09/2024 7:26 PM ADULT REMEDIAL EDUCATION INSTRUCTOR 10/09/2024 7:31 PM ADULT REMEDIAL EDUCATION INSTRUCTOR us Madhuri Dennis DO MICROBIOLOGY - GENERAL O RDERABLES Final Result [facility] [address] [place] [address], [place] [phone] [facility] [address] [place] [address], [place] [phone] * ECG 12 lead (10/09/2024 6:02 PM ADULT REMEDIAL EDUCATION INSTRUCTOR) Only the most recent of2 resultswithin the time period is included. 10/09/2024 6:02 PM ADULT REMEDIAL EDUCATION INSTRUCTOR Narrative [facility] - 10/10/2024 8:13 AM ADULT REMEDIAL EDUCATION INSTRUCTOR [address] [place] [address] Test Date: 2024-10-09 Pat Name: STEPH ESPINAL Department: 3 Room: EXAM 808 Gender: Male Labelling Machine Operator: : 2000 Requested By: MADHURI DENNIS Order Number: [id number] Reading : Sharif Webb Measurements Intervals [place] Rate: 90 P: 18 TX: 155 QRS: 76 QRSD: 90 T: 5 QT: 341 QTc: 418 Interpretive Statements SINUS RHYTHM T REMEDIAL EDUCATION INSTRUCTOR Procedure Note Sharif Webb MD - 10/10/[address] [place] [address] Test Date: 2024-10-09 Pat Name: STEPH ESPINAL Department: 3 Room: EXAM 808 Gender: Male Labelling Machine Operator: : 2000 Requested By: MADHURI DENNIS Order Number: [id number] Reading SERGE Webb Measurements Intervals [place] Rate: 90 P: 18 TX: 155 QRS: 76 QRSD: 90 T: 5 QT: 341 QTc: 418 Interpretive Statements SINUS RHYTHM T REMEDIAL EDUCATION INSTRUCTOR us Madhuri Dennis DO ECG ORDERABLES Final Re sult [facility] * CORONAVIRUS (COVID-19) ANTIGEN (10/09/2024 6:02 PM ADULT REMEDIAL EDUCATION INSTRUCTOR) CORONAVIRUS ANTIGEN [place] NEGATIVE NEGATIVE 10/09/2024 6:33 PM ADULT REMEDIAL EDUCATION INSTRUCTOR [facility] Comment: NEGATIVE RESULTS DO NOT [...] LABORATORIES. SPECIMEN TYPE NASAL 10/09/2024 6:03 PM ADULT REMEDIAL EDUCATION INSTRUCTOR [facility] NASAL NASAL STRUCTURE / Unknown 10/09/2024 6:02 PM ADULT REMEDIAL EDUCATION INSTRUCTOR Madhuri Dennis DO MICROBIOLOGY - GENERAL O RDERABLES Final Result Performing Organization Address [facility] Co de Phone Number [facility] [address] [place] [address], * INFLUENZA A & B (10/09/2024 6:02 PM ADULT REMEDIAL EDUCATION INSTRUCTOR) SPECIMEN TYPE (INFLUENZA) NASAL 10/09/2024 6:03 PM ADULT REMEDIAL EDUCATION INSTRUCTOR [facility] INFLUENZA A NEGATIVE NEGATIVE 10/09/2024 6:33 PM ADULT REMEDIAL EDUCATION INSTRUCTOR [facility] INFLUENZA B NEGATIVE NEGATIVE 10/09/2024 6:33 PM ADULT REMEDIAL EDUCATION INSTRUCTOR [facility] Comment: A NEGATIVE RESULT DOES NOT EXCLUDE INFLUENZA VIRUS INFECTION. IF INFLUENZA IS CIRCULATING IN YOUR COMMUNITY, A DIAGNOSIS OF INFLUENZA SHOULD BE CONSIDERED BASED ON A PATIENT'S CLINICAL PRESENTATION AND EMPIRIC ANTIVIRAL TREATMENT SHOULD BE CONSIDERED IF INDICATED. NASAL STRUCTURE / Unknown 10/09/2024 6:02 PM ADULT REMEDIAL EDUCATION INSTRUCTOR Madhuri Pauljolynn Dennis DO MICROBIOLOGY - GENERAL O RDERABLES Final Result Performing Organization Address City/[facility] Co de Phone Number [facility] [address] [place] [address], * (ABNORMAL) COMPREHENSIVE METABOLIC PANEL (10/09/2024 6:00 PM ADULT REMEDIAL EDUCATION INSTRUCTOR) Only the most recent of3 resultswithin the time period is included. SODIUM S/P/B 140 136 - 145 MMOL/L 10/09/2024 6:24 PM ADULT REMEDIAL EDUCATION INSTRUCTOR [facility] POTASSIUM S/P/B 3.8 3.5 - 5.1 MMOL/L 10/09/2024 6:24 PM ADULT REMEDIAL EDUCATION INSTRUCTOR [facility] CHLORIDE S/P/B 102 98 - 107 MMOL/L 10/09/2024 6:24 PM [facility] CO2 28.7 21.0 - 32.0 MMOL/L 10/09/2024 6:24 PM [facility] GLUCOSE 72 70 - 99 MG/DL 10/09/2024 6:24 PM [facility] Comment: FASTING GLUCOSE 100 TO 125 MG/DL IS CONSISTENT WITH IMPAIRED FASTING GLUCOSE. FASTING GLUCOSE >125 MG/DL IS CONSISTENT WITH DIABETES. RANDOM GLUCOSE >200 MG/DL WITH HYPERGLYCEMIC SYMPTOMS IS CONSISTENT WITH DIABETES. PER ADA GUIDELINES BUN 6 6 - 24 MG/DL 10/09/2024 6:24 PM [facility] CREATININE S/P/B 0.96 0.70 - 1.30 MG/DL 10/09/2024 6:24 PM [facility] CALCIUM S/P/B 9.5 8.4 - 10.5 MG/DL 10/09/2024 6:24 PM [facility] BILIRUBIN TOTAL S/P/B 0.3 0.2 - 1.0 MG/DL 10/09/2024 6:24 PM [facility] Comment: THIS ASSAY IS NOT RECOMMENDED FOR PATIENTS UNDERGOING TREATMENT WITH ELTROMBOPAG DUE TO THE POTENTIAL FOR FALSELY ELEVATED RESULTS. ALKALINE PHOSPHATASE S/P/B 120(H) 45 - 115 U/L 10/09/2024 6:24 PM [facility] AST 34 15 - 37 U/L 10/09/2024 6:24 PM [facility] ALT 93(H) 16 - 63 U/L 10/09/2024 6:24 PM [facility] TOTAL PROTEIN S/P/B 8.1 6.4 - 8.2 G/DL 10/09/2024 6:24 PM [facility] ALBUMIN S/P/B 4.3 3.4 - 5.0 G/DL 10/09/2024 6:24 PM [facility] ANION GAP 9.3 5.0 - 15.0 MMOL/L 10/09/2024 6:24 PM [facility] OSMOLALITY (CALC) 286 MOSM/KG 025 6:24 PM ADULT REMEDIAL EDUCATION INSTRUCTOR [facility] Comment:REFERENCE RANGE NOT ESTABLISHED GFR ESTIMATE >90 >89 ML/MIN/1. 73 M2 10/09/2024 6:24 PM ADULT REMEDIAL EDUCATION INSTRUCTOR [facility] GFR NOTES GFR REFERENCE S: 10/09/2024 6:24 PM ADULT REMEDIAL EDUCATION INSTRUCTOR [facility] Comment: THE ESTIMATED GFR IS [...] FAILURE: <15 ml/min/1.73 m2 10/09/2024 6:00 PM ADULT REMEDIAL EDUCATION INSTRUCTOR us Madhuri Dennis DO LABORATORY Final Re sult [facility] [address] [place] [address], * CBC W/DIFF AUTOMATED (10/09/2024 6:00 PM ADULT REMEDIAL EDUCATION INSTRUCTOR) Only the most recent of3 resultswithin the time period is included. WBC 7.44 4.00 - 10.80 x10'3/uL 10/09/2024 6:11 PM ADULT REMEDIAL EDUCATION INSTRUCTOR [facility] RBC 5.58 4.50 - 6.10 x10'6/uL 10/09/2024 6:11 PM ADULT REMEDIAL EDUCATION INSTRUCTOR [facility] HGB 16.7 13.0 - 18.0 G/DL 10/09/2024 6:11 PM ADULT REMEDIAL EDUCATION INSTRUCTOR [facility] HCT 50.3 37.0 - 52.0 % 10/09/2024 6:11 PM ADULT REMEDIAL EDUCATION INSTRUCTOR [facility] MCV 90.1 78.0 - 100.0 FL 10/09/2024 6:11 PM [facility] MCH 29.9 27.0 - 31.0 PG 10/09/2024 6:11 PM [facility] MCHC 33.2 33.0 - 36.0 G/DL 10/09/2024 6:11 PM [facility] RDW 12.8 11.5 - 14.5 % 10/09/2024 6:11 PM [facility] PLT 222 150 - 350 x10'3/uL 10/09/2024 6:11 PM [facility] MPV 9.0 7.4 - 10.4 FL 10/09/2024 6:11 PM [facility] CBC COMMENT NORMAL REFERENCE RANGE NOT ESTABLISHED FOR THE PROPORTIONAL LEUKOCYTE DIFFERENTIAL. 10/09/2024 6:11 PM [facility] NEUTROPHILS % 70.9 % 10/09/2024 6:11 PM [facility] LYMPHOCYTES % 21.4 % 10/09/2024 6:11 PM [facility] MONOCYTES % 4.8 % 10/09/2024 6:11 PM [facility] EOSINOPHILS % 2.0 % 10/09/2024 6:11 PM [facility] BASOPHILS % 0.5 % 10/09/2024 6:11 PM [facility] IMMATURE GRANS % 0.4 % 10/09/19 25 6:11 PM [facility] NRBC % 0.0 % 10/09/2024 6:11 PM [facility] ABS. NEUTROPHILS 5.27 1.60 - 8.30 x10'3/uL 10/09/2024 6:11 PM [facility] ABS. LYMPHOCYTES 1.59 0.80 - 4.70 x10'3/uL 10/09/2024 6:11 PM [facility] ABS. MONOCYTES 0.36 0.00 - 1.50 x10'3/uL 10/09/2024 6:11 PM [facility] ABS. EOSINOPHILS 0.15 0.00 - 0.40 x10'3/uL 10/09/2024 6:11 PM ADULT REMEDIAL EDUCATION INSTRUCTOR [facility] ABS. BASOPHILS 0.04 0.00 - 0.20 x10'3/uL 10/09/2024 6:11 PM ADULT REMEDIAL EDUCATION INSTRUCTOR [facility] ABS. IMMATURE GRANULOCYTES 0.03 0.00 - 0.03 x10'3/uL 10/09/2024 6:11 PM ADULT REMEDIAL EDUCATION INSTRUCTOR [facility] ABS. NUCLEATED RBC'S 0.00 0.00 - 0.01 x10'3/uL 10/09/2024 6:11 PM ADULT REMEDIAL EDUCATION INSTRUCTOR [facility] 10/09/2024 6:00 PM ADULT REMEDIAL EDUCATION INSTRUCTOR Madhuri Gomes Jeannie DO LABORATORY Final Re sult Performing Organization Address [facility] [place] [place] [address], * TROPONIN, QUANT (10/09/2024 6:00 PM ADULT REMEDIAL EDUCATION INSTRUCTOR) Only the most recent of2 resultswithin the time period is included. TROPONIN I HIGH SENSITIVITY 5 0 - 76 ng/L 10/09/2024 6:24 PM ADULT REMEDIAL EDUCATION INSTRUCTOR [facility] 10/09/2024 6:00 PM ADULT REMEDIAL EDUCATION INSTRUCTOR Madhurieric Gomes Jeannie DO LABORATORY Final Re sult Performing Organization Address [facility]/ZIP Co de Phone Number [facility] [address] [place] [address], [place] [phone] * MAGNESIUM (10/09/2024 6:00 PM ADULT REMEDIAL EDUCATION INSTRUCTOR) Only the most recent of2 resultswithin the time period is included. MAGNESIUM 2.2 1.8 - 2.4 MG/DL 10/09/2024 6:24 PM ADULT REMEDIAL EDUCATION INSTRUCTOR [facility] 10/09/2024 6:0 0 PM ADULT REMEDIAL EDUCATION INSTRUCTOR us Madhuri Oliviercy DO LABORATORY Final Re sult Performing Organization Address City/[facility]/ZIP Co de Phone Number [facility] [address] [place] [address], [place] [phone] * LACTIC ACID W REFLEX (SEPSIS) (09/30/2024 8:21 PM ADULT REMEDIAL EDUCATION INSTRUCTOR) Only the most recent of2 resultswithin the time period is included. LACTIC ACID VENOUS 1.5 0.4 - 2.0 MMOL/L 09/30/2024 8:45 PM ADULT REMEDIAL EDUCATION INSTRUCTOR [facility] 09/30/2024 8:21 PM ADULT REMEDIAL EDUCATION INSTRUCTOR us He Lott DO LABORATORY Final Result Performing Organization Address [facility]/ZIP Co de Phone Number [facility] [address] [place] [address], [place] [phone] * (ABNORMAL) DRUG SCREEN RAPID (09/30/2024 7:13 PM ADULT REMEDIAL EDUCATION INSTRUCTOR) CANNABINOIDS SCREEN (U) POSITIVE(A) NEGATIVE 09/30/2024 7:42 PM ADULT REMEDIAL EDUCATION INSTRUCTOR [facility] PHENCYCLIDINE PCP (U) NEGATIVE NEGATIVE 09/30/2024 7:42 PM ADULT REMEDIAL EDUCATION INSTRUCTOR [facility] COCAINE METABOLITES (U) NEGATIVE NEGATIVE 09/30/2024 7:42 PM ADULT REMEDIAL EDUCATION INSTRUCTOR [facility] METHAMPHETAMINE SCREEN (U) NEGATIVE NEGATIVE 09/30/2024 7:42 PM ADULT REMEDIAL EDUCATION INSTRUCTOR [facility] OPIATE SCREEN (U) NEGATIVE NEGATIVE 025 7:42 PM ADULT REMEDIAL EDUCATION INSTRUCTOR [facility] AMPHETAMINE SCREEN (U) NEGATIVE NEGATIVE 09/30/2024 7:42 PM ADULT REMEDIAL EDUCATION INSTRUCTOR [facility] BENZODIAZEPINES SCREEN (U) NEGATIVE NEGATIVE 09/30/2024 7:42 PM ADULT REMEDIAL EDUCATION INSTRUCTOR [facility] TRICYCLIC ANTIDEPRESSANT SCREEN (U) NEGATIVE NEGATIVE 09/30/2024 7:42 PM ADULT REMEDIAL EDUCATION INSTRUCTOR [facility] METHADONE (U) NEGATIVE NEGATIVE 09/30/2024 7:42 PM ADULT REMEDIAL EDUCATION INSTRUCTOR [facility] BARBITURATES SCREEN (U) POSITIVE(A) NEGATIVE 09/30/2024 7:42 PM ADULT REMEDIAL EDUCATION INSTRUCTOR [facility] OXYCODONE SCREEN (U) NEGATIVE NEGATIVE 09/30/2024 7:42 PM ADULT REMEDIAL EDUCATION INSTRUCTOR [facility] URINE TOX COMMENT THIS TEST METHODOLOGY IS DESIGNED AND OFFERED A RAPID TURNAROUND, QUALITATIVE SCREENING PROCEDURE TO AID IN THE IMMEDIATE MEDICAL ASSESSMENT OF PATIENTS SUSPECTED OF SUBSTANCE ABUSE. 09/30/2024 7:20 PM ADULT REMEDIAL EDUCATION INSTRUCTOR [facility] Comment: CLINICAL CONSIDERATION AND PROFESSIONAL JUDGMENT MUST BE APPLIED TO ANY DRUG OF ABUSE TEST RESULT, BOTH POSITIVE AND NEGATIVE. CONFIRMATORY QUANTITATIVE RESULTS ARE AVAILABLE THROUGH OUR [facility]. URINE SPECIMEN / Unknown 09/30/2024 7:13 PM ADULT REMEDIAL EDUCATION INSTRUCTOR us He Lott DO URINE ORDERABLES Final Result Performing Organization Address [facility]/ZIP Co de Phone Number [facility] [address] [place] [address], * (ABNORMAL) KEPPRA LEVEL (09/30/2024 6:18 PM ADULT REMEDIAL EDUCATION INSTRUCTOR) KEPPRA <2.0(L) 6.0 - 46.0 mcg/mL 10/03/2024 11:52 PM ADULT REMEDIAL EDUCATION INSTRUCTOR [facility] Comment: Brivaracetam (Briviact(R), Rikelta(R)) exhibits significant cross-reactivity in the Levetiracetam (Keppra(R), Spritam(R)) immunoassay. If Brivaracetam has been prescribed, order test code 98976 Levetiracetam by LCMSMS. Test Performed by [facility] [facility], [employer] [facility], [address] [place], [place] Tony Mckenzie M.D., Ph.D., Director of Laboratories , [place] [id number] 09/30/2024 6:18 PM ADULT REMEDIAL EDUCATION INSTRUCTOR us He Lott DO LABORATORY Final Result [facility] [address] [place] [address], [place] [phone] * (ABNORMAL) VALPROIC ACID (09/30/2024 6:18 PM ADULT REMEDIAL EDUCATION INSTRUCTOR) VALPROIC ACID 5.0(L) 50.0 - 100.00 MCG/ML 09/30/2024 7:00 PM ADULT REMEDIAL EDUCATION INSTRUCTOR [facility] 09/30/2024 6:18 PM ADULT REMEDIAL EDUCATION INSTRUCTOR us He Lott DO LABORATORY Final Result Performing Organization Address [facility] Co de Phone Number [facility] [address] [place] [id number], [place] [phone] * CT HEAD WO CON (09/19/2024 3:19 AM ADULT REMEDIAL EDUCATION INSTRUCTOR) Anatomical Region Laterality Modality Head Computed Tomogra phy 09/19/2024 3:21 AM ADULT REMEDIAL EDUCATION INSTRUCTOR Impressions 09/19/2024 3:25 AM ADULT REMEDIAL EDUCATION INSTRUCTOR IMPRESSION: 1. No CT evidence of an acute intracranial abnormality. 2. No maxillofacial bone fracture. 3. No cervical spine fracture. Referred By: Interpreted By: Rosas Shin MD, 09/19/2024 3:21 AM Narrative 09/19/2024 3:25 AM ADULT REMEDIAL EDUCATION INSTRUCTOR [address] [place] [address] EXAMINATION: CT HEAD WO CON, CT FACIAL [...] Procedure Note Rosas Shin MD - 09/19/[address] [place] [address] EXAMINATION: CT HEAD WO CON, CT FACIAL [...] FACIAL BONES WO CON (09/19/2024 3:19 AM ADULT REMEDIAL EDUCATION INSTRUCTOR) Anatomical Region Laterality Modality Facial Computed Tomogra phy 09/19/2024 3:21 AM ADULT REMEDIAL EDUCATION INSTRUCTOR Impressions 09/19/2024 3:25 AM ADULT REMEDIAL EDUCATION INSTRUCTOR IMPRESSION: 1. No CT evidence of an acute intracranial abnormality. 2. No maxillofacial bone fracture. 3. No cervical spine fracture. Referred By: Interpreted By: Rosas Shin MD, 09/19/2024 3:21 AM Narrative 09/19/2024 3:25 AM ADULT REMEDIAL EDUCATION INSTRUCTOR [address] [place] [address] EXAMINATION: CT HEAD WO CON, CT FACIAL [...] Procedure Note Rosas Shin MD - 09/19/2024 [place] [id number] [place] [address] EXAMINATION: CT HEAD WO CON, CT FACIAL [...] CERV SPINE WO CON (09/19/2024 3:19 AM ADULT REMEDIAL EDUCATION INSTRUCTOR) Anatomical Region Laterality Modality Spine Computed Tomogra phy 09/19/2024 3:21 AM ADULT REMEDIAL EDUCATION INSTRUCTOR Impressions 09/19/2024 3:25 AM ADULT REMEDIAL EDUCATION INSTRUCTOR IMPRESSION: 1. No CT evidence of an acute intracranial abnormality. 2. No maxillofacial bone fracture. 3. No cervical spine fracture. Referred By: Interpreted By: Rosas Shin MD, 09/19/2024 3:21 AM Narrative 09/19/2024 3:25 AM ADULT REMEDIAL EDUCATION INSTRUCTOR [address] [place] [address] EXAMINATION: CT HEAD WO CON, CT FACIAL [...] Procedure Note Rosas Shin MD - 09/19/2024 [facility] [address] [place] [address] EXAMINATION: CT HEAD WO CON, CT FACIAL [...] SHOULDER RT MIN 2V (09/19/2024 3:18 AM ADULT REMEDIAL EDUCATION INSTRUCTOR) Anatomical Region Laterality Modality Shoulder Radiographic Kayla ging 09/19/2024 3:23 AM ADULT REMEDIAL EDUCATION INSTRUCTOR Impressions 09/19/2024 3:24 AM ADULT REMEDIAL EDUCATION INSTRUCTOR IMPRESSION: 1. No acute osseous abnormalities. Referred By: Interpreted By: Juan Manuel Green MD, 09/19/2024 3:23 AM Narrative 09/19/2024 3:24 AM ADULT REMEDIAL EDUCATION INSTRUCTOR [address] [place] [address] Examination: 2 or more views right shoulder [...] Note Juan Manuel Green MD - 09/19/[address] [place] [address] Examination: 2 or more views right shoulder [...] * XR CHEST PORTABLE (09/19/2024 3:18 AM ADULT REMEDIAL EDUCATION INSTRUCTOR) Anatomical Region Laterality Modality Chest Radiographic Kayla ging 09/19/2024 3:22 AM ADULT REMEDIAL EDUCATION INSTRUCTOR Impressions 09/19/2024 3:23 AM ADULT REMEDIAL EDUCATION INSTRUCTOR IMPRESSION: ======== 1. Borderline prominent vascularity may be secondary to positioning. No convincing acute cardiopulmonary findings within limitations of exam. Referred By: Interpreted By: Juan Manuel Green MD, 09/19/2024 3:22 AM Narrative 09/19/2024 3:23 AM ADULT REMEDIAL EDUCATION INSTRUCTOR [place] [address] [place] [address] Examination: Chest x-ray 1 view Exam Date/Time: [...] Note Juan Manuel Green MD - 09/19/2024 [place] [address] [place] [address] Examination: Chest x-ray 1 view Exam Date/Time: [...] ult * (ABNORMAL) TRILEPTAL (09/19/2024 2:49 AM ADULT REMEDIAL EDUCATION INSTRUCTOR) TRILEPTAL <1.0(L) 8.0 - 35.0 mcg/mL 09/22/2024 5:20 PM ADULT REMEDIAL EDUCATION INSTRUCTOR [facility] DANI BEDOYA Comment: Test Performed by Anabela Wilkes, [employer] Lynnette [facility], [address] [place] [address] Tony Mckenzie M.D., Ph.D., Director of Laboratories , [facility] [id number] 09/19/2024 2:49 AM ADULT REMEDIAL EDUCATION INSTRUCTOR us Josh Jiménez MD LABORATORY Final Res ult [facility] [address] , * (ABNORMAL) PHENYTOIN (09/19/2024 2:49 AM ADULT REMEDIAL EDUCATION INSTRUCTOR) PHENYTOIN <0.5(L) 10.0 - 20.0 MCG/ML 09/19/2024 3:15 AM ADULT REMEDIAL EDUCATION INSTRUCTOR [facility] 09/19/2024 2:49 AM ADULT REMEDIAL EDUCATION INSTRUCTOR us Josh Jiménez MD LABORATORY Final Res ult [facility] [address] [place] [address], from Last 3 Months Insurance [facility] Care Teams Rod Hanger Relationship Specialty Start Date End Date Aaron Godinez DO [address] [place] [address] PCP - General FAMILY PRACTICE 07/08/24
--- OUTSIDE RECORDS SUMMARY | 2024-12-08 06:59 | XMS_ITS | Encounter Summary ---
Author Organization [facility] Address [facility]ly [facility] [place] [address] Care Team Providers Care Edge Bander Hand Name Role Phone Kale Villalobos MD Primary Care Provider [phone] Dominic Lerma MD Primary Care Provider [phone] None, Provider Primary Care Provider Aaron Clarke DO Primary Care Provider [phone] Encounter Details Date Type Department Care Team (Late st Contact Info) Description 01/27/2019 Abstract SFL CONVERSION [address] [place] [address] , Generic Conversion, Social History Tobacco Use Types Packs/Day Years Used Date Smoking Tobacco: Never Assessed Sex and Gender Information Value Date Recorded Sex Assigned at Male 09/19/2024 2:39 AM KNOCKUP WORKER Legal Sex Male 5:50 PM KNOCKUP WORKER Gender Identity Not on file Sexual Orientation Not on file documented as of this encounter Plan of Treatment Not on file documented as of this encounter Visit Diagnoses Not on filedocumented in this encounter Additional Health Concerns Infection Onset Date Last Indicated Resolved Time COVID-19 Rule Out 08/01/2024 08/01/2024 08/01/2024 3:42 AM KNOCKUP WORKER COVID-19 Rule Out 10/09/2024 10/09/2024 10/09/2024 6:33 PM KNOCKUP WORKER documented as of this encounter Care Teams Edge Bander Hand Relationship Specialty Start Date End Date Kale Villalobos MD [address] [place] [phone] PCP - General FAMILY PRACTICE 03/23/19 05/23/23 Dominic Lerma MD [address] [place] [id number] PCP - General INTERNAL MEDICINE 05/24/23 04/08/24 None, MD Demarco PCP - General UNKNOWN PHYSICIAN SPECIALTY 04/09/24 07/07/24 Aaron Godinez DO [address] [place] [address] PCP - General FAMILY PRACTICE 07/08/24 documented as of this encounter
== END 2024-12-08 06:56 | disposition home or self-care (01) ==
PROVIDERS: PCP Family Medicine; Visit Provider Family Medicine
DX: G40.309 Generalized idiopathic epilepsy and epileptic syndromes, not intractable, without status epilepticus (principal); R51.9 Headache, unspecified
CPT/HCPCS: 70551

== ENCOUNTER 2025-01-19 14:47 | Emergency (ER) | payer OTHER, SELFPAY ==
[2025-01-19] VITALS (17 sets, daily range): BP systolic 116–187; BP diastolic 73–98; PULSE 77–105; RESP 16–24; TEMP 36.6–36.8; O2SAT 93–99
--- NOTE | ~2025-01-19 | XR_ITS ---
XR knee RT 3V Ordering provider: Anoop Cadena MD History: . Fall, lateral Rt. knee pain . Comparison: None. FINDINGS: BONES: No acute fracture or dislocation. JOINT SPACES: Normal. SOFT TISSUES: Normal. IMPRESSION: No acute osseous abnormality right knee. Reviewed, dictated and finalized at location A.
[2025-01-19 15:01] LABS: Glucose Point of Care 83 mg/dl (65-105)
[2025-01-19] MEDS: SODIUM CHLORIDE 0.9% IV 1,000 ML 999 ML IV CONT (15:33)
[2025-01-19] MEDS: levETIRAcetam 500 MG TABLET 1000 MG PO (15:34)
[2025-01-19] MEDS: ACETAMINOPHEN 500 MG TABLET 1000 MG PO (15:34)
[2025-01-19 15:37] LABS: Basophils Absolute Auto 0.05 K/mm3 (0.00-0.10); Basophils Percent Auto 0.7 % (0.0-1.0); Eosinophils Absolute Auto 0.11 K/mm3 (0.02-0.50); Eosinophils Percent Auto 1.5 % (1.0-6.0); Hematocrit 45.6 % (40.0-54.0); Hemoglobin 15.3 g/dL (14.0-18.0); Immature Granulocyte Absolute 0.03 K/mm3 (0.00-0.00); Immature Granulocyte Percent A 0.4 % (0.0-0.0); Lymphocytes Absolute Auto 1.24 K/mm3 (1.10-4.50); Mean Corpuscular HGB Conc 33.6 g/dL (32-36); Mean Corpuscular Hemoglobin 29.6 pg (27.0-31.0); Mean Corpuscular Volume 88.2 fL (78.0-102.0); Mean Platelet Volume 8.8 fl (8.7-11.0); Monocytes Absolute Auto 0.44 K/mm3 (0.10-0.90); Neutrophils Absolute Auto 5.41 K/mm3 (1.70-7.20); Neutrophils Percent Auto 74.4 % (50.0-70.0); Platelet Count Result 191 K/mm3 (150-420); Red Blood Count 5.17 M/mm3 (4.70-6.10); Red Cell Distribution Width 12.1 % (11.6-14.4); White Blood Count 7.3 K/mm3 (4.8-10.8)
--- NOTE | 2025-01-19 15:41 | ECG_ITS ---
Test Date: 2025-01-19 15:48:43 Measurements Intervals [place] Rate: 88 P: 50 WI: 156 QRS: 44 QRSD: 94 T: 24 QT: 369 QTc: 447 Interpretive Statements SINUS RHYTHM MINIMAL Q WAVES- INFERIOR LEADS BORDERLINE ECG Compared to ECG 03/14/2024 13:38:10 NO SIGNIFICANT CHANGE Electronically Signed On 01-20-2025 07:02:41 CDT by Prasanth Zuleta D.O.
[2025-01-19 15:50] LABS: Alanine Aminotransferase 77 U/L (6-50); Albumin Level 4.6 g/dL (3.5-5.1); Alkaline Phosphatase 89 U/L (38-126); Anion Gap 5 mmol/L (4-12); Aspartate Amino Transferase 48 U/L (17-59); Bilirubin,Total 0.7 mg/dL (0.2-1.3); Blood Urea Nitrogen 11 mg/dL (9-20); Calcium 9.2 mg/dL (8.4-10.2); Carbon Dioxide 28 mmol/L (22-30); Chloride 107 mmol/L (98-107); Creatine Kinase 500 U/L (55-170); Estimated CRCL calculation 156 ml/min; Estimated Glomerular Filt Rate > 60; Glucose 80 mg/dL (65-110); Osmolality Calculated 288 mOsm/kg (285-295); Potassium 3.9 mmol/L (3.4-5.0); Sodium 140 mmol/L (137-145); Total Protein 7.6 g/dL (6.3-8.2)
[2025-01-19 16:43] LABS: Add Urine Microscopic? YES; Appearance Urine Clear (Clear); Bilirubin Urine Negative (Negative); Blood Urine Negative (Negative); Color Urine Yellow (Yellow); Glucose Urine UA Negative (Negative); Ketones Urine Negative (Negative); Leukocyte Esterase Ur Negative LEU/UL (Negative); Nitrate Urine Negative (Negative); Protein Urine 1+ (Negative); Urobilinogen Urine 0.2 mg/dL (0.2-1.0)
[2025-01-19 16:50] LABS: Amorphous Sediment Urine Heavy; Mucus Urine Heavy /lpf
--- NOTE | 2025-01-19 16:51 | ED_ITS ---
HPI - Seizure General Chief Complaint: Seizure Stated Complaint: seizure Time Seen by Provider: 01/19/25 14:58 Source: patient and EMS Mode of arrival: ambulatory Limitations: no limitations History of Present Illness HPI Narrative: this is a 24-year-old male that presents via EMS after he had a witnessed seizure he was cutting his lawn and had a seizure patient has a history of seizures and has not been taking his medication for the last couple of weeks he hit a brick wall and is complaining of right knee pain with no head injury, with no bowel or bladder dysfunction no tongue biting no blurry vision patient has no nausea vomiting does have some muscle aches. Currently there is no fever chills no chest pain no shortness of breath. seizures have resolved prior to arrival to the emergency department. complaint: seizure Onset (ago): hour(s) Description of Episode: tonic-clonic movement -: minutes(s) Witnessed: Yes - by Bystander Trauma: No Seizure History: Yes Place: outdoors Possible Precipitating Event: none Associated symptoms: denies other symptoms Treatments prior to arrival: none Related Data Allergies Allergy/AdvReac Type Severity Reaction Status Date / Time No Known Allergies Allergy Verified 01/19/25 15:01 Review of Systems 2 Review of Systems: All systems reviewed & are unremarkable except as noted in HPI and below PMFSH Past Medical History Medical History No active medical problems Surgical History Surgical History No pertinent past surgical history Family History Family History Mother COPD (chronic obstructive pulmonary disease) Degenerative disc disease Father Seizures Social History Social History Smoking status: Current every day smoker Alcohol intake: never Substance use: current Substance use type: marijuana Exam 2 Const: General: healthy appearing and no acute distress Nutritional Appearance: well nourished Orientation/consciousness: patient oriented x3 Limitations: no limitations HENMT: Head: normal to inspection Throat: posterior oropharynx normal and uvula midline Eyes: Conjunctivae: conjunctivae normal Pupils: Equal, round and reactive pupils present EOM: EOMs intact bilaterally Neck: Neck: normal visual inspection, no lymphadenopathy and no meningeal signs Chest: Chest palpation & inspection: normal inspection of the chest Resp: Effort & Inspection: normal respiratory effort Auscultation: clear to auscultation bilaterally Cardio: Rate: regular rate Rhythm: regular rhythm GI: GI Palp: Yes Soft to palpation Auscultation: normal bowel sounds : General: Yes bladder normal to palpation Urinary Catheter: Urinary Catheter: patent and draining Back/Spine/Pelvis: Back: no CVA tenderness Skin: General skin exam: normal color Rashes: no rashes Wounds: no wounds Neuro: General: patient oriented x3, moves all extremities, no meningeal signs and no focal motor deficits Cranial nerves: Yes Nystagmus not present S peech: normal speech Gait exam (Neuro): Normal gait present Extrem: Other: right knee pain with palpation Course Course Emergency Course: x-ray of right knee shows no acute abnormality, patient had an elevated CK of 500 patient received IV fluids patient currently back to his baseline did receive a dose of a 1000mg p.o. Keppra UA was negative the rest of patient's blood work was unremarkable vitals are stable. EKG showed normal sinus rhythm. Vital Signs Vital signs: Vital Signs Temperature 36.8 C 01/19/25 14:50 Pulse Rate 101 H 01/19/25 14:50 Respiratory Rate 16 01/19/25 14:50 Blood Pressure 138/84 01/19/25 14:50 Pulse Oximetry 96 01/19/25 14:50 Oxygen Delivery Room Air 01/19/25 14:50 Temperature 36.8 C 01/19/25 14:50 Pulse Rate 101 H 01/19/25 14:50 Respiratory Rate 16 01/19/25 14:50 Blood Pressure 138/84 01/19/25 14:50 Pulse Oximetry 96 01/19/25 14:50 Oxygen Delivery Room Air 01/19/25 14:50 MDM - Seizure Lab Data 01/19/25 15:34 01/19/25 15:34 Labs: Lab Results 01/19/25 01/19/25 Range/Units 14:57 15:34 WBC 7.3 (4.8-10.8) K/mm3 RBC 5.17 (4.70-6.10) M/mm3 Hgb 15.3 (14.0-18.0) g/dL Hct 45.6 (40.0-54.0) % MCV 88.2 (78.0-102.0) fL MCH 29.6 (27.0-31.0) pg MCHC 33.6 (32-36) g/dL RDW 12.1 (11.6-14.4) % Plt Count 191 (150-420) K/mm3 MPV 8.8 (8.7-11.0) fl Immature Gran % (Auto) 0.4 H (0.0-0.0) % Neut % (Auto) 74.4 H (50.0-70.0) % Lymph % (Auto) 17.0 L (18.0-42.0) % [place] % (Auto) 6.0 (2.0-11.0) % Eos % (Auto) 1.5 (1.0-6.0) % Baso % (Auto) 0.7 (0.0-1.0) % Lymph # (Auto) 1.24 (1.10-4.50) K/mm3 [place] # (Auto) 0.44 (0.10-0.90) K/mm3 Eos # (Auto) 0.11 (0.02-0.50) K/mm3 Baso # (Auto) 0.05 (0.00-0.10) K/mm3 Abs Immat Gran (auto) 0.03 H (0.00-0.00) K/mm3 Absolute Neuts (auto) 5.41 (1.70-7.20) K/mm3 Absolute Nucleated RBC 0.00 (0.00-0.00) K/mm3 Nucleated RBC % 0.0 (0-0.0) % Sodium 140 (137-145) mmol/L Potassium 3.9 (3.4-5.0) mmol/L Chloride 107 (98-107) mmol/L Carbon Dioxide 28 (22-30) mmol/L Anion Gap 5 (4-12) mmol/L BUN 11 (9-20) mg/dL Creatinine 0.81 (0.7-1.3) mg/dL Estim Creat Clear Calc 156 ml/min Estimated GFR > 60 (59 - ) Glucose 80 (65-110) mg/dL POC Capillary Glucose 83 (65-105) mg/dl Calculated Osmolality 288 (285-295) mOsm/kg Calcium 9.2 (8.4-10.2) mg/dL Total Bilirubin 0.7 (0.2-1.3) mg/dL AST 48 (17-59) U/L ALT 77 H (6-50) U/L Alkaline Phosphatase 89 (38-126) U/L Total Creatine Kinase 500 H (55-170) U/L Total Protein 7.6 (6.3-8.2) g/dL Albumin 4.6 (3.5-5.1) g/dL Urine Color Yellow (Yellow) Urine Appearance Clear (Clear) Urine pH 7.0 (5.0-8.0) Ur Specific [place] 1.020 (1.010-1.020) Urine Protein 1+ H (Negative) Urine Glucose (UA) Negative (Negative) Urine Ketones Negative (Negative) Ur Blood (Man) Negative (Negative) Urine Nitrate Negative (Negative) Urine Bilirubin Negative (Negative) Urine Urobilinogen 0.2 (0.2-1.0) mg/dL Leukocyte Esterase Rfl Negative (Negative) ESSIE/UL Amorphous Sediment Heavy H (None) Urine Mucus Heavy H /lpf Critical Care Time Critical Care Time Critical Care Time: No Discharge Plan Discharge Clinical Impression: Seizure disorder Rhabdomyolysis Qualifiers: Rhabdomyolysis type: non-traumatic Qualified Code(s): M62.82 - Rhabdomyolysis Patient Disposition: Home Condition: Stable Instructions: Antibiotic Form, Rhabdomyolysis (ED), Recurrent Seizures in Adults (ED) Additional Instructions: advised patient to take his seizure medication as directed drink plenty of fluids and follow with primary further evaluation treatment. Patient Language: Romanian Prescriptions: New levetiracetam [Keppra] 1,000 mg tablet 1,000 mg PO BID Qty: 30 0RF No Action meloxicam 15 mg tablet 15 mg PO DAILY Qty: 90 0RF cyclobenzaprine 10 mg tablet 10 mg PO TID PRN (Reason: muscle spasm) Qty: 30 0RF oxcarbazepine 300 mg tablet See Rx Instructions .ROUTE .COMPLEX Qty: 60 3RF Dose Instruction: TAKE ONE TABLET BY MOUTH TWICE A DAY Rx Instructions: TAKE ONE TABLET BY MOUTH TWICE A DAY phenytoin sodium extended 100 mg capsule See Rx Instructions .ROUTE .COMPLEX Qty: 90 0RF Dose Instruction: TAKE 1 CAPSULE BY MOUTH TWICE A DAY Rx Instructions: TAKE 1 CAPSULE BY MOUTH TWICE A DAY levetiracetam 1,000 mg tablet See Rx Instructions .ROUTE .COMPLEX Qty: 180 0RF Dose Instruction: TAKE 1 TABLET BY MOUTH TWICE A DAY Rx Instructions: TAKE 1 TABLET BY MOUTH TWICE A DAY Follow-up/Referrals: Aaron Godinez DO [Primary Care Provider] - Time of Disposition: 16:58
== END 2025-01-19 17:05 | disposition home or self-care (01) ==
PROVIDERS: Emergency Provider Emergency Medicine; PCP Family Medicine
DX: G40.909 Epilepsy, unspecified, not intractable, without status epilepticus (principal); M62.82 Rhabdomyolysis; W18.30XA Fall on same level, unspecified, initial encounter
CPT/HCPCS: 36415; 73562; 80053; 81001; 82550; 82948; 85025; 93005; 96360; 99284; A9270; J7030

== ENCOUNTER 2025-02-12 11:16 | Outpatient (CLI) | payer OTHER, SELFPAY ==
[2025-02-12 12:20] LABS: Sodium 140 mmol/L (137-145)
[2025-02-12 12:24] LABS: Phenytoin Dilantin < 3 ug/mL (10-20)
[2025-02-14 10:03] LABS: Levetiracetam Keppra. 5.8 mcg/mL (6.0-46.0)
== END 2025-02-12 11:17 | disposition home or self-care (01) ==
LOC: CHSLAB 11:18
PROVIDERS: PCP Family Medicine; Visit Provider Psychiatry & Neurology Neurology
DX: G40.909 Epilepsy, unspecified, not intractable, without status epilepticus (principal)
CPT/HCPCS: 36415; 80177; 80183; 80185; 80186; 84295

== ENCOUNTER 2025-04-02 04:27 | Emergency (ER) | payer OTHER, SELFPAY ==
--- NOTE | ~2025-04-02 | XR_ITS ---
EXAMINATION: XR chest 1V portable 04/02/2025 05:12 INDICATION: Seizure-like activities PROCEDURE: AP portable chest COMPARISON: No prior studies for comparison. FINDINGS: The lungs are clear. The cardiomediastinal silhouette is within normal limits. There are no pleural effusions. There is no pneumothorax suspected. IMPRESSION: 1: NO ACUTE CARDIOPULMONARY DISEASE. Reviewed, dictated and finalized at location A.
--- NOTE | ~2025-04-02 | CT_ITS ---
EXAMINATION: CT brain wo con DATE: 04/02/2025 05:12 INDICATION: Headache and seizure TECHNIQUE: Computed tomography (CT) of the head was performed without intravenous contrast. The dose- length product was 681.00 mGy-cm. Automated exposure control and iterative reconstruction technique w ere employed. COMPARISON: CT dated 03/14/2024 FINDINGS: Normal brain parenchymal volume. Normal [place]-white differentiation. No ventriculomegaly or midline shift. Basilar cisterns are patent. No acute infarction, hemorrhage, mass or mass effect. The re is mucosal thickening of the frontal sinuses. Mastoids are pneumatized. No depressed skull fractur es. IMPRESSION: 1. No acute intracranial abnormality. Reviewed, dictated and finalized at location A.
--- OUTSIDE RECORDS SUMMARY | 2025-04-02 04:29 | XMS_ITS | Clinical Summary ---
Author Organization [facility] Address [address] [place] [address] Care Team Providers Care Ammonia Still Operator Name Role Phone Gretchen Aaron PARSONS Primary Care Provider [phone] Allergies No known active allergies Medications levETIRAcetam [...] Encounters Date Type Department Care Team Description 01/09/2025 10:15 AM CDT - 01/09/2025 11:59 PM CDT [place] [address] Danya Espinoza, DO Discharge Disposition: Home or Self Care (Routine Discharge) 01/09/[address] [place] [address] [address] Danya Espinoza, 01/09/2025 Travel from Last 3 Months Immunizations Immunization [...] Sex Assigned at Male 09/19/2024 2:39 AM FACILITIES PROJECT MANAGER Legal Sex Male 5:50 PM FACILITIES PROJECT MANAGER Gender Identity Not on file Sexual Orientation [...] 11:17 AM CDT Height 177.8 cm (5' 10) 12/01/2024 11:17 AM CDT Body Mass Index 35.44 12/01/2024 11:17 AM CDT Plan of Treatment Health Maintenance Due Date Last Done Comments Annual Physical 2004 HPV Vaccines (1 - Male 3-dose series) 2016 Meningococcal B Vaccine (2 of 2 - Bexsero SCDM 2-dose series) 09/27/2019 03/27/2019 Hepatitis C 2019 Hepatitis B Vaccines (1 of 3 - 19+ 3-dose series) 2020 Pneumococcal Vaccine: Pediatrics (0 to 5 Years) and At-Risk Patients (6 to 49 Years) (1 of 2 - PCV) 2020 COVID-19 Vaccine (1 - season) 2024 DTaP, Tdap and Td Vaccines (7 - Td or Tdap) 12/01/2034 12/01/2024, 03/24/2007, 10/17/2002, Additional history exists Meningococcal Vaccine Completed 03/27/2019 RSV Immunizations Under 20 Months Aged Out No longer eligible based on patient's age to complete this topic Procedures Procedure Name Priority Date/Time Associated Diagnosis Comments AMMONIA Routine 01/09/2025 10:28 AM CDT Epilepsy, unspecified, not intractable, without status epilepticus ([facility] HHS/HCC) COMPREHENSIVE METABOLIC PANEL Routine 01/09/2025 10:28 AM CDT Epilepsy, unspecified, not intractable, without status epilepticus ([facility] HHS/HCC) CBC W/DIFF AUTOMATED Routine 01/09/2025 10:28 AM CDT Epilepsy, unspecified, not intractable, without status epilepticus ([facility] HHS/HCC) TRILEPTAL Routine 01/09/2025 10:28 AM CDT Epilepsy, unspecified, not intractable, without status epilepticus ([facility] HHS/HCC) KEPPRA LEVEL Routine 01/09/2025 10:28 AM CDT Epilepsy, unspecified, not intractable, without status epilepticus ([facility] HHS/HCC) MISCELLANEOUS LAB TEST Routine 10:28 AM CDT Epilepsy, unspecified, not intractable, without status epilepticus (CMS/HCC HHS/HCC) from Last 3 Months Results * MISCELLANEOUS LAB TEST (01/09/2025 10:28 AM CDT) TEST NAME: [id number] PHENYTOIN FREE BOUND AND TOTAL 01/09/2025 10:32 AM CDT [facility] SPECIMEN TYPE SERUM 01/09/2025 10:32 AM CDT [facility] TEST RESULT: Flexitest 1 01/11/2025 2:38 PM CDT [facility] MONIQUE LANG Comment: Flexitest 1 Phenytoin 2.3 L mg/L 10.0-20.0 Phenytoin, Free <0.5 L mg/L 1.0-2.0 Phenytoin, Bound Unable to calculate Test Performed by [facility], [facility], [address] [place] [address] Tony Mckenzie M.D., Ph.D., Director of Laboratories , CLIA [id number] 01/09/2025 10:2 8 AM CDT Danya Espinoza DO LABORATORY Final Result [employer] [address], [place] [phone] [facility] [address] [place] [address], * KEPPRA LEVEL (01/09/2025 10:28 AM CDT) KEPPRA 16.9 6.0 - 46.0 mcg/mL 01/11/2025 11:10 PM CDT [facility] DANI ELKE Comment: Brivaracetam (Briviact(R), Rikelta(R)) exhibits significant cross-reactivity in the Levetiracetam (Keppra(R), Spritam(R)) immunoassay. If Brivaracetam has been prescribed, order test code [id number] Levetiracetam by LCMSMS. Test Performed by [facility], [address] [place], [place] Tony Mckenzie M.D., Ph.D., Director of Laboratories , CLIA [id number] 01/09/2025 10:2 8 AM CDT us Danya Espinoza DO LABORATORY Final Result Performing Organization Address City/[facility]/ZIP Co de Phone Number [facility] [address] [place], [place] , [place] [phone] * (ABNORMAL) TRILEPTAL (01/09/2025 10:28 AM CDT) TRILEPTAL 2.7(L) 8.0 - 35.0 mcg/mL 01/12/2025 6:04 AM CDT [facility] CONNOLLY-DARRELLTIL LY Comment: Test Performed by Anabela Wilkes, [employer] [facility], [address] [place] [address] Tony Mckenzie M.D., Ph.D., Director of Laboratories , [facility] [id number] 01/09/2025 10:2 8 AM CDT Danya Espinoza LABORATORY Final Result Performing Organization Address [facility]/ZIP Co de Phone Number [facility] [address] [place], [place] , [place] [phone] * (ABNORMAL) COMPREHENSIVE METABOLIC PANEL (01/09/2025 10:28 AM CDT) SODIUM S/P/B 139 136 - 145 MMOL/L 01/09/2025 10:56 AM CDT [facility] POTASSIUM S/P/B 4.0 3.5 - 5.1 MMOL/L 01/09/2025 10:56 AM CDT [facility] CHLORIDE S/P/B 103 98 - 107 MMOL/L 01/09/2025 10:56 AM CDT [facility] CO2 31.8 21.0 - 32.0 MMOL/L 01/09/2025 10:56 AM CDT [facility] GLUCOSE 92 70 - 99 MG/DL 01/09/2025 10:56 AM CDT [facility] Comment: FASTING GLUCOSE 100 TO 125 MG/DL IS CONSISTENT WITH IMPAIRED FASTING GLUCOSE. FASTING GLUCOSE >125 MG/DL IS CONSISTENT WITH DIABETES. RANDOM GLUCOSE >200 MG/DL WITH HYPERGLYCEMIC SYMPTOMS IS CONSISTENT WITH DIABETES. PER ADA GUIDELINES BUN 12 6 - 24 MG/DL 01/09/2025 10:56 AM [facility] CREATININE S/P/B 0.94 0.70 - 1.30 MG/DL 01/09/2025 10:56 AM [facility] CALCIUM S/P/B 9.0 8.4 - 10.5 MG/DL 01/09/2025 10:56 AM [facility] BILIRUBIN TOTAL S/P/B 0.4 0.2 - 1.0 MG/DL 01/09/2025 10:56 AM [facility] Comment: THIS ASSAY IS NOT RECOMMENDED FOR PATIENTS UNDERGOING TREATMENT WITH ELTROMBOPAG DUE TO THE POTENTIAL FOR FALSELY ELEVATED RESULTS. ALKALINE PHOSPHATASE S/P/B 113 45 - 115 U/L 01/09/2025 10:56 AM [facility] AST 33 15 - 37 U/L 01/09/2025 10:56 AM [facility] ALT 76(H) 16 - 63 U/L 01/09/2025 10:56 AM [facility] TOTAL PROTEIN S/P/B 7.2 6.4 - 8.2 G/DL 01/09/2025 10:56 AM [facility] ALBUMIN S/P/B 3.8 3.4 - 5.0 G/DL 01/09/2025 10:56 AM [facility] ANION GAP 4.2(L) 5.0 - 15.0 MMOL/L 01/09/2025 10:56 AM [facility] OSMOLALITY (CALC) 287 MOSM/KG 025 10:56 AM [facility] Comment:REFERENCE RANGE NOT ESTABLISHED GFR ESTIMATE >90 >89 ML/MIN/1. 73 M2 01/09/2025 10:56 AM [facility] GFR NOTES GFR REFERENCE S: 01/09/2025 10:56 AM [facility] Comment: THE ESTIMATED GFR IS [...] ml/min/1.73 m2 G5,KIDNEY FAILURE: <15 ml/min/1.73 m2 01/09/2025 10:2 8 AM CDT Danya Espinoza DO LABORATORY Final Result [facility] [address] [place] [address], * CBC W/DIFF AUTOMATED (01/09/2025 10:28 AM CDT) WBC 6.47 4.00 - 10.80 x10'3/uL 01/09/2025 10:36 AM CDT [facility] RBC 4.96 4.50 - 6.10 x10'6/uL 01/09/2025 10:36 AM CDT [facility] HGB 14.9 13.0 - 18.0 G/DL 01/09/2025 10:36 AM CDT [facility] HCT 44.3 37.0 - 52.0 % 01/09/2025 10:36 AM CDT [facility] MCV 89.3 78.0 - 100.0 FL 01/09/2025 10:36 AM CDT [facility] MCH 30.0 27.0 - 31.0 PG 01/09/2025 10:36 AM CDT [facility] MCHC 33.6 33.0 - 36.0 G/DL 01/09/2025 10:36 AM CDT [facility] RDW 12.4 11.5 - 14.5 % 01/09/2025 10:36 AM CDT [facility] PLT 180 150 - 350 x10'3/uL 01/09/2025 10:36 AM CDT [facility] MPV 8.6 7.4 - 10.4 FL 01/09/2025 10:36 AM CDT [facility] CBC COMMENT NORMAL REFERENCE RANGE NOT ESTABLISHED FOR THE PROPORTIONAL LEUKOCYTE DIFFERENTIAL. 01/09/2025 10:36 AM CDT [facility] NEUTROPHILS % 71.1 % 01/09/2025 10:36 AM CDT [facility] LYMPHOCYTES % 20.2 % 01/09/2025 10:36 AM CDT [facility] MONOCYTES % 6.2 % 01/09/2025 10:36 AM CDT [facility] EOSINOPHILS % 1.4 % 01/09/2025 10:36 AM CDT [facility] BASOPHILS % 0.6 % 01/09/2025 10:36 AM CDT [facility] IMMATURE GRANS % 0.5 % 01/10/20 10:36 AM CDT [facility] NRBC % 0.0 % 01/09/2025 10:36 AM CDT [facility] ABS. NEUTROPHILS 4.60 1.60 - 8.30 x10'3/uL 01/09/2025 10:36 AM CDT [facility] ABS. LYMPHOCYTES 1.31 0.80 - 4.70 x10'3/uL 01/09/2025 10:36 AM CDT [facility] ABS. MONOCYTES 0.40 0.00 - 1.50 x10'3/uL 01/09/2025 10:36 AM CDT [facility] ABS. EOSINOPHILS 0.09 0.00 - 0.40 x10'3/uL 01/09/2025 10:36 AM CDT [facility] ABS. BASOPHILS 0.04 0.00 - 0.20 x10'3/uL 01/09/2025 10:36 AM CDT [facility] ABS. IMMATURE GRANULOCYTES 0.03 0.00 - 0.03 x10'3/uL 01/09/2025 10:36 AM CDT [facility] ABS. NUCLEATED RBC'S 0.00 0.00 - 0.01 x10'3/uL 01/09/2025 10:36 AM CDT [facility] 01/09/2025 10:2 8 AM CDT Danya Perez'Margamaliel PARSONS LABORATORY Final Result [facility] [address] [place] [address], [place] [phone] * AMMONIA (01/09/2025 10:28 AM CDT) AMMONIA 15 11 - 32 UMOL/L 01/09/2025 10:52 AM CDT [facility] 01/09/2025 10:2 8 AM CDT Danya Espinoza DO LABORATORY Final Result Performing Organization Address [facility] Co de Phone Number [facility] [address] [place] [address], [place] [phone] from Last 3 Months Insurance Care Teams Ammonia Still Operator Relationship Specialty Start Date End Date Aaron Godinez DO [address] [place] [address] PCP - General FAMILY PRACTICE 07/08/24
--- OUTSIDE RECORDS SUMMARY | 2025-04-02 04:29 | XMS_ITS | Encounter Summary ---
Author Organization [facility] Address [address] [place] [address] Care Team Providers Care Medical Records Supervisor Name Role Phone Kale Villalobos MD Primary Care Provider Dominic Lerma MD Primary Care Provider [phone] None, Provider Primary Care Provider Aaron Clarke DO Primary Care Provider [phone] Encounter Details Date Type Department Care Team (Late st Contact Info) Description 01/27/2019 Abstract S[place] [address] [place] [id number] , Generic Conversion, Social History Tobacco Use Types Packs/Day Years Used Date Smoking Tobacco: Never Assessed Sex and Gender Information Value Date Recorded Sex Assigned at Male 09/19/2024 2:39 AM [employer] OPERATOR Legal Sex Male 5:50 PM [employer] OPERATOR Gender Identity Not on file Sexual Orientation Not on file documented as of this encounter Plan of Treatment Not on file documented as of this encounter Visit Diagnoses Not on filedocumented in this encounter Additional Health Concerns Infection Onset Date Last Indicated Resolved Time COVID-19 Rule Out 08/01/2024 08/01/2024 08/01/2024 3:42 AM [employer]OM OPERATOR COVID-19 Rule Out 10/09/2024 10/09/2024 10/09/2024 6:33 PM [employer] OPERATOR documented as of this encounter Care Teams Medical Records Supervisor Relationship Specialty Start Date End Date Kale Villalobos MD [address] [place] [id number] PCP - General FAMILY PRACTICE 03/23/19 05/23/23 Dominic Lerma MD [address] [place] [id number] PCP - General INTERNAL MEDICINE 05/24/23 04/08/24 None, MD Demarco PCP - General UNKNOWN PHYSICIAN SPECIALTY 04/09/24 07/07/24 Aaron Godinez DO [address] [place] [address] PCP - General FAMILY PRACTICE 07/08/24 documented as of this encounter
[2025-04-02 04:30] VITALS: BP 128/72; PULSE 80; PULSE 82; RESP 18; TEMP 36.6; O2SAT 96
--- NOTE | 2025-04-02 04:44 | ED.GENADULT ---
HPI - General Adult General Chief complaint: Seizure Stated complaint: seizure Time Seen by Provider: 04/02/25 04:43 Source: patient and EMS Mode of arrival: EMS Limitations: no limitations History of Present Illness HPI narrative: harman came to the emergency room from home by ambulance with possible seizure. Patient woke up at 4:00 a.m.somehow for unknown reason, noticed that he have headache, right shoulder pain followed by getting nauseated and vomiting for 3-4 time. Patient report having similar symptoms in the past after having seizure. History of seizure currently on Keppra 1500 b.i.d., patient reports , forget to take his Keppra as scheduled. Patient denies any tongue biting or urine incontinence. Last seizure approximately 2 months ago, last Keppra increase almost 2 months ago. Patient denies any fever, chills, abdominal pain, chest pain, shortness of breath or back pain. Related Data Allergies Allergy/AdvReac Type Severity Reaction Status Date / Time No Known Allergies Allergy Verified 01/19/25 15:01 Review of Systems Review of Systems: All systems reviewed & are unremarkable except as noted in HPI and below PMFSH Past Medical History Medical History No active medical problems Surgical History Surgical History No pertinent past surgical history Family History Family History Mother COPD (chronic obstructive pulmonary disease) Degenerative disc disease Father Seizures Social History Social History Smoking status: Current every day smoker Alcohol intake: never Substance use: current Substance use type: marijuana Exam Narrative: General appearance: Well-developed, well-nourished Skin: Normal color Head: Normocephalic, nontraumatic Eyes: Clear conjunctiva ENT: Oropharynx normal, ears normal, nose normal Neck: Supple, nontender Chest and respiratory: Airway patent, no respiratory distress, no accessory muscle use Heart: Regular rate/rhythm Abdomen: Soft, nontender, no organomegaly, quiet bowel sounds Vascular: Normal peripheral pulses, normal capillary refill. Musculoskeletal: Normal range of motion, nontender back Neurologic: Alert and oriented ?3, WALLPAPERER is normal as tested, no gross motor deficit Course Vital Signs Vital signs: Vital Signs Temperature 36.6 C 04/02/25 04:30 Pulse Rate 82 04/02/25 04:30 Respiratory Rate 18 04/02/25 04:30 Blood Pressure 128/72 04/02/25 04:30 Pulse Oximetry 96 04/02/25 04:30 Oxygen Delivery Room Air 04/02/25 04:30 Temperature 36.6 C 04/02/25 04:30 Pulse Rate 80 04/02/25 05:20 Respiratory Rate 18 04/02/25 05:20 Blood Pressure 128/77 04/02/25 05:20 Pulse Oximetry 98 04/02/25 05:20 Oxygen Delivery Room Air 04/02/25 05:20 Medical Decision Making MDM Narrative Medical decision making narrative: Patient came to the ED by ambulance with possible seizure Vital signs are stable Physical examination is unremarkable Differential diagnosis patient arrived to the ED with post ictal symptom including headache, right shoulder pain and vomiting which is symptoms of post ictal in the past Blood workup today includes CBC, CMP, CPK showed AST 60, ALT 76, CPK 648 otherwise within normal limit Urinalysis showed no acute abnormality Urine drug screen negative for drugs Chest x-ray showed no acute abnormality CT scan of the head showed no acute abnormality Elevated CPK high likely indicating that patient had seizure while sleeping. Patient received 1 L of normal saline IV, 1 g of Keppra IV, feeling much better prior to discharge. Differential Diagnosis Differential Diagnosis: as above Vital Signs Vital Signs: Vital Signs Temperature 36.6 C 04/02/25 04:30 Pulse Rate 82 04/02/25 04:30 Respiratory Rate 18 04/02/25 04:30 Blood Pressure 128/72 04/02/25 04:30 Pulse Oximetry 96 04/02/25 04:30 Oxygen Delivery Room Air 04/02/25 04:30 Temperature 36.6 C 04/02/25 04:30 Pulse Rate 80 04/02/25 05:20 Respiratory Rate 18 04/02/25 05:20 Blood Pressure 128/77 04/02/25 05:20 Pulse Oximetry 98 04/02/25 05:20 Oxygen Delivery Room Air 04/02/25 05:20 Lab Data 04/02/25 05:31 04/02/25 05:31 Labs: Lab Results 04/02/25 04/02/25 04/02/25 Range/Units 05:31 05:32 05:35 WBC 7.0 (4.8-10.8) K/mm3 RBC 4.66 L (4.70-6.10) M/mm3 Hgb 13.8 L (14.0-18.0) g/dL Hct 41.9 (40.0-54.0) % MCV 89.9 (78.0-102.0) fL MCH 29.6 (27.0-31.0) pg MCHC 32.9 (32-36) g/dL RDW 12.1 (11.6-14.4) % Plt Count 168 (150-420) K/mm3 MPV 8.7 (8.7-11.0) fl Immature Gran % (Auto) 0.6 H (0.0-0.0) % Neut % (Auto) 66.9 (50.0-70.0) % Lymph % (Auto) 22.1 (18.0-42.0) % [place] % (Auto) 7.6 (2.0-11.0) % Eos % (Auto) 2.1 (1.0-6.0) % Baso % (Auto) 0.7 (0.0-1.0) % Lymph # (Auto) 1.55 (1.10-4.50) K/mm3 [place] # (Auto) 0.53 (0.10-0.90) K/mm3 Eos # (Auto) 0.15 (0.02-0.50) K/mm3 Baso # (Auto) 0.05 (0.00-0.10) K/mm3 Abs Immat Gran (auto) 0.04 H (0.00-0.00) K/mm3 Absolute Neuts (auto) 4.69 (1.70-7.20) K/mm3 Absolute Nucleated RBC 0.00 (0.00-0.00) K/mm3 Nucleated RBC % 0.0 (0-0.0) % Sodium 140 (137-145) mmol/L Potassium 3.9 (3.4-5.0) mmol/L Chloride 107 (98-107) mmol/L Carbon Dioxide 29 (22-30) mmol/L Anion Gap 4 (4-12) mmol/L BUN 8 L (9-20) mg/dL Creatinine 0.81 (0.7-1.3) mg/dL Estim Creat Clear Calc 156 ml/min Estimated GFR > 60 (59 - ) Glucose 86 (65-110) mg/dL Calculated Osmolality 287 (285-295) mOsm/kg Calcium 8.7 (8.4-10.2) mg/dL Total Bilirubin 0.3 (0.2-1.3) mg/dL AST 60 H (17-59) U/L ALT 76 H (6-50) U/L Alkaline Phosphatase 92 (38-126) U/L Total Creatine Kinase 648 H (55-170) U/L Total Protein 6.6 (6.3-8.2) g/dL Albumin 4.2 (3.5-5.1) g/dL Urine Color Light yellow (Yellow) Urine Appearance Clear (Clear) Urine pH 5.5 (5.0-8.0) Ur Specific [place] >= 1.030 H (1.010-1.020) Urine Protein Negative (Negative) Urine Glucose (UA) Negative (Negative) Urine Ketones Trace H (Negative) Ur Blood (Man) Negative (Negative) Urine Nitrate Negative (Negative) Urine Bilirubin Negative (Negative) Urine Urobilinogen 0.2 (0.2-1.0) mg/dL Leukocyte Esterase Rfl Negative (Negative) ESSIE/UL Urine Opiates Screen Negative (Negative) Urine Methadone Screen Negative (Negative) Ur Barbiturates Screen Negative (Negative) Ur Phencyclidine Scrn Negative (Negative) Ur Amphetamine Screen Negative (Negative) U Benzodiazepines Scrn Negative (Negative) Urine Cocaine Screen Negative (Negative) U Cannabinoids Screen Negative (Negative) Ethyl Alcohol Cancelled < 10 Imaging Data My impression: Chest x-ray showed no acute abnormality CT scan of the head without contrast showed no acute abnormality Critical Care Time Critical Care Time Critical Care Time: No Discharge Plan Discharge Clinical Impression: Seizure-like activity Patient Disposition: Home Condition: Improved Instructions: Recurrent Seizures in Adults (ED) Additional Instructions: Return if symptoms are worsening , call your neurologist as soon as possible for possible Keppra adjustment, take Tylenol as as needed for aches and pain, continue home medications. Patient Language: Estonian Prescriptions: No Action levetiracetam [Keppra] 1,000 mg tablet 1,000 mg PO BID Qty: 30 0RF meloxicam 15 mg tablet 15 mg PO DAILY Qty: 90 0RF cyclobenzaprine 10 mg tablet 10 mg PO TID PRN (Reason: muscle spasm) Qty: 30 0RF oxcarbazepine 300 mg tablet See Rx Instructions .ROUTE .COMPLEX Qty: 60 3RF Dose Instruction: TAKE ONE TABLET BY MOUTH TWICE A DAY Rx Instructions: TAKE ONE TABLET BY MOUTH TWICE A DAY levetiracetam 1,000 mg tablet See Rx Instructions .ROUTE .COMPLEX Qty: 180 0RF Dose Instruction: TAKE 1 TABLET BY MOUTH TWICE A DAY Rx Instructions: TAKE 1 TABLET BY MOUTH TWICE A DAY phenytoin sodium extended 100 mg capsule See Rx Instructions .ROUTE .COMPLEX Qty: 90 0RF Dose Instruction: TAKE 1 CAPSULE BY MOUTH TWICE A DAY Rx Instructions: TAKE 1 CAPSULE BY MOUTH TWICE A DAY Follow-up/Referrals: Aaron Godinez, [Primary Care Provider] -
[2025-04-02] MEDS: SODIUM CHLORIDE 0.9% IV 1,000 ML 999 ML IV CONT (04:51)
[2025-04-02] MEDS: ONDANSETRON INJ 4 MG/2 ML VIAL IV PUSH (04:54)
[2025-04-02] MEDS: levETIRAcetam 1000MG/NACL100ML 1,000 MG/100 ML BAG 400 MG IVPB (04:55)
[2025-04-02 05:20] VITALS: BP 128/77; PULSE 80; RESP 18; O2SAT 98
[2025-04-02 05:35] LABS: Hematocrit 41.9 % (40.0-54.0); Hemoglobin 13.8 g/dL (14.0-18.0); Immature Granulocyte Percent A 0.6 % (0.0-0.0); Lymphocytes Absolute Auto 1.55 K/mm3 (1.10-4.50); Mean Corpuscular HGB Conc 32.9 g/dL (32-36); Mean Corpuscular Hemoglobin 29.6 pg (27.0-31.0); Mean Corpuscular Volume 89.9 fL (78.0-102.0); Nucleated Red Blood Cells Absolute Auto 0.00 K/mm3 (0.00-0.00); Nucleated Red Blood Cells Perc 0.0 % (0-0.0); Platelet Count Result 168 K/mm3 (150-420); Red Blood Count 4.66 M/mm3 (4.70-6.10); White Blood Count 7.0 K/mm3 (4.8-10.8)
[2025-04-02 05:47] LABS: Add Urine Microscopic? NO; Appearance Urine Clear (Clear); Glucose Urine UA Negative (Negative); Leukocyte Esterase Ur Negative LEU/UL (Negative); Nitrate Urine Negative (Negative); Specific Grav Ur >= 1.030 (1.010-1.020)
[2025-04-02 05:48] LABS: Alanine Aminotransferase 76 U/L (6-50); Albumin Level 4.2 g/dL (3.5-5.1); Alkaline Phosphatase 92 U/L (38-126); Anion Gap 4 mmol/L (4-12); Aspartate Amino Transferase 60 U/L (17-59); Bilirubin,Total 0.3 mg/dL (0.2-1.3); Blood Urea Nitrogen 8 mg/dL (9-20); Calcium 8.7 mg/dL (8.4-10.2); Carbon Dioxide 29 mmol/L (22-30); Chloride 107 mmol/L (98-107); Creatine Kinase 648 U/L (55-170); Estimated CRCL calculation 156 ml/min; Estimated Glomerular Filt Rate > 60; Glucose 86 mg/dL (65-110); Osmolality Calculated 287 mOsm/kg (285-295); Potassium 3.9 mmol/L (3.4-5.0); Sodium 140 mmol/L (137-145); Total Protein 6.6 g/dL (6.3-8.2)
[2025-04-02 06:11] LABS: Cannabinoid Screen Urine Negative (Negative)
[2025-04-02 06:30] VITALS: BP 126/77; PULSE 78; RESP 18; TEMP 36.6; O2SAT 98
== END 2025-04-02 06:30 | disposition home or self-care (01) ==
PROVIDERS: Emergency Provider Emergency Medicine; PCP Family Medicine
DX: R56.9 Unspecified convulsions (principal); Z79.899 Other long term (current) drug therapy
CPT/HCPCS: 36415; 70450; 71045; 80053; 80307; 81003; 82077; 82550; 85025; 96361; 96374; 96375; 99284; J1953; J2405; J7030

== ENCOUNTER 2025-06-18 13:34 | Outpatient (CLI) | payer OTHER, SELFPAY ==
--- NOTE | ~2025-06-18 | CT_ITS ---
EXAMINATION: CT brain wo con DATE: 06/18/2025 14:16 INDICATION: Generalized idiopathic epilepsy and epileptic seizure TECHNIQUE: Computed tomography (CT) of the head was performed without intravenous contrast. Sagittal and coronal reconstructions were performed. The mA was adjusted according to patient size. Iterative reconstruction technique was employed. The dose-length product was 681.00 mGy-cm. COMPARISON: head CT dated 04/02/2025 FINDINGS: No acute intracranial hemorrhage, acute infarction or abnormal extra axial fluid collection. Ventricles are normal and symmetric. No mass/mass effect. Unchanged mucosal thickening in the frontal and right maxillary sinuses. The orbits, paranasal sinuses and mastoid air cells are normal. IMPRESSION: 1. Normal brain. No acute intracranial process. Reviewed, dictated and finalized at location A.
[2025-06-18 14:09] LABS: Hematocrit 49.4 % (40.0-54.0); Hemoglobin 16.1 g/dL (14.0-18.0); Immature Granulocyte Percent A 0.3 % (0.0-0.0); Lymphocytes Absolute Auto 0.96 K/mm3 (1.10-4.50); Mean Corpuscular HGB Conc 32.6 g/dL (32-36); Mean Corpuscular Hemoglobin 29.0 pg (27.0-31.0); Mean Corpuscular Volume 89.0 fL (78.0-102.0); Nucleated Red Blood Cells Absolute Auto 0.00 K/mm3 (0.00-0.00); Nucleated Red Blood Cells Perc 0.0 % (0-0.0); Platelet Count Result 198 K/mm3 (150-420); Red Blood Count 5.55 M/mm3 (4.70-6.10); White Blood Count 7.8 K/mm3 (4.8-10.8)
[2025-06-18 14:29] LABS: Alanine Aminotransferase 71 U/L (6-50); Albumin Level 5.1 g/dL (3.5-5.1); Alkaline Phosphatase 98 U/L (38-126); Anion Gap 9 mmol/L (4-12); Aspartate Amino Transferase 50 U/L (17-59); Bilirubin,Total 0.6 mg/dL (0.2-1.3); Blood Urea Nitrogen 10 mg/dL (9-20); Calcium 9.8 mg/dL (8.4-10.2); Carbon Dioxide 30 mmol/L (22-30); Chloride 103 mmol/L (98-107); Estimated Glomerular Filt Rate > 60; Glucose 98 mg/dL (65-110); Osmolality Calculated 293 mOsm/kg (285-295); Potassium 4.2 mmol/L (3.4-5.0); Sodium 142 mmol/L (137-145); Total Protein 9.8 g/dL (6.3-8.2)
[2025-06-18 15:20] LABS: Thyroid Stimulating Hormone Reflex 2.430 uIU/mL (0.465-4.68)
== END 2025-06-18 13:35 | disposition home or self-care (01) ==
LOC: CHSLAB 13:35
PROVIDERS: PCP Family Medicine; Visit Provider Family Medicine
DX: G40.309 Generalized idiopathic epilepsy and epileptic syndromes, not intractable, without status epilepticus (principal); Z87.898 Personal history of other specified conditions; E03.9 Hypothyroidism, unspecified
CPT/HCPCS: 36415; 70450; 80053; 80177; 80183; 80185; 80186; 84443; 85025